=== PATIENT | female | born 1970 | race Caucasian/White ===

== ENCOUNTER 2016-10-25 21:50 | Inpatient (IN) | payer MEDICARE, MEDICAID ==
[~2016-10-25] VITALS: Ht 165.1 cm; Wt 100.5 kg
[~2016-10-25 21:50] MED LIST: ALBUAER3 INH; BACL20TA PO; CHLO200T5 PO; CLON0.3T PO; CYMB30CA PO; DULO1CAP3 PO; EXENINJ SQ; HYDR50TA94 PO; KLON2TAB PO; LITH450T PO; LURA80 PO; METF1000 PO; REQU4TAB3 PO
[2016-10-25 21:58] VITALS: BP 142/77; PULSE 101; RESP 14; TEMP 98.7; O2SAT 95
[2016-10-25] MEDS ORDERED: NALOXONE HCL 2 MG/2 ML VIAL IV ONE (22:15)
[2016-10-25] MEDS ORDERED: SODIUM CHLORIDE 0.9% FLUSH 10 ML FLUSH IVF PRN (22:15)
[2016-10-25 22:21] LABS: BLOOD GAS BASE EXCESS -3.1 mmol/L (-2-2); BLOOD GAS CARBOXYHEMOGLOBIN 5.5 % (0-4); BLOOD GAS HCO3 21 mmol/L (22-26); BLOOD GAS METHEMOGLOBIN 0.9 % (0-2); BLOOD GAS O2 HGB SATURATION 88 % (90-100); BLOOD GAS OXYGEN CONTENT 14.9 Vol % (12.0-20.0); BLOOD GAS PCO2 34 mmHg (38-42); BLOOD GAS PO2 66 mmHG (61-120); TEMP CORR TO 98.6
[2016-10-25 22:22] LABS: CRITICAL VALUE YES; DRAW SITE RT RADIAL; FIO2 21 %; NUMBER OF ARTERIAL PUNCTURES 2; OXYGEN DEVICE ROOM AIR; STAT YES; ULNAR PULSE PRESENT
[2016-10-25 22:29] VITALS: O2SAT 98
--- NOTE | 2016-10-25 22:50 | RADRPT ---
EXAM DATE/TIME: 10/25/2016 22:36 [facility] COMPARISON: CHEST SINGLE AP, January 01, 2015, 6:40. INDICATIONS : Cough. MEDICAL HISTORY : None. SURGICAL HISTORY : None. ENCOUNTER: Initial ACUITY: 1 day PAIN SCORE: Non-responsive. LOCATION: Bilateral chest FINDINGS: Heart size enlarged. Basilar density most characteristic of atelectasis. No significant effusion. No pneumothorax. CONCLUSION: 1. Cardiomegaly with probable basilar atelectasis. Berry Winston MD on October 25, 2016 at 22:47 Board Certified Radiologist. This report was verified electronically.
[2016-10-25 23:01] LABS: AUTOMATED NEUTROPHIL # 11.2 TH/MM3 (1.8-7.7); BASOPHIL # 0.1 TH/MM3 (0-0.2); BASOPHIL % 0.9 % (0.0-2.0); EOSINOPHIL # 0.2 TH/MM3 (0-0.4); EOSINOPHIL % 1.3 % (0.0-4.0); HEMATOCRIT 38.4 % (35.0-46.0); HEMO FLAGS DIFF FINAL; LYMPH % 8.8 % (9.0-44.0); LYMPHOCYTE # 1.2 TH/MM3 (1.0-4.8); MEAN CELL VOLUME 85.6 FL (80.0-100.0); MEAN CORPUSCULAR HEMOGLOBIN 28.1 PG (27.0-34.0); MEAN CORPUSCULAR HGB CONC 32.8 % (32.0-36.0); MONO % 6.2 % (0.0-8.0); NEUT % 82.8 % (16.0-70.0); PLATELET COUNT 255 TH/MM3 (150-450); RED BLOOD COUNT 4.48 MIL/MM3 (4.00-5.30); RED CELL DISTRIBUTION WIDTH 14.7 % (11.6-17.2); WHITE BLOOD COUNT 13.5 TH/MM3 (4.0-11.0)
[2016-10-25] MEDS ORDERED: LEVO25TA4 PO (23:14)
[2016-10-25] MEDS ORDERED: LEVO200T4 PO (23:14)
[2016-10-25 23:17] LABS: ACETAMINOPHEN LESS THAN 2.0 MCG/ML (10.0-30.0); ALT (GPT) 26 U/L (10-53); ANION GAP 7 MEQ/L (5-15); AST (GOT) 21 U/L (15-37); BICARBONATE 23.2 MEQ/L (21.0-32.0); BLOOD UREA NITROGEN 10 MG/DL (7-18); CHLORIDE 108 MEQ/L (98-107); GLOMERULAR FILTRATION RATE 61 ML/MIN (>89); SODIUM (NA) 138 MEQ/L (136-145)
[2016-10-25] MEDS ORDERED: UMEC1AER INH (23:21)
[2016-10-25 23:27] LABS: ALKALINE PHOSPHATASE 54 U/L (45-117); TOTAL BILIRUBIN ADULT 0.4 MG/DL (0.2-1.0)
--- NOTE | 2016-10-26 00:06 | RADRPT ---
EXAM DATE/TIME: 10/25/2016 23:56 [facility] COMPARISON: No previous studies available for comparison. INDICATIONS : Altered mental status. RADIATION DOSE: 41.36 CTDIvol (mGy) MEDICAL HISTORY : Gastroesophageal reflux disease. Diabetes mellitus type 2. Asthma. SURGICAL HISTORY : Lumbar surgery ENCOUNTER: Initial ACUITY: 1 day PAIN SCALE: Non-responsive LOCATION: cranial TECHNIQUE: Multiple contiguous axial images were obtained of the head. Using automated exposure control and adj ustment of the mA and/or kV according to patient size, radiation dose was kept as low as reasonably a chievable to obtain optimal diagnostic quality images. FINDINGS: CEREBRUM: The ventricles are normal for age. No evidence of midline shift, mass lesion, hemorrhage or acute in farction. No extra-axial fluid collections are seen. POSTERIOR FOSSA: The cerebellum and brainstem are intact. The 4th ventricle is midline. The cerebellopontine angle i s unremarkable. EXTRACRANIAL: The visualized portion of the orbits is intact. SKULL: The calvaria is intact. No evidence of skull fracture. CONCLUSION: No acute intracranial disease. Octaviano Andres MD on October 26, 2016 at 0:04 Board Certified Radiologist. This report was verified electronically.
[2016-10-26 00:47] LABS: AMPHETAMINE, URINE NEG (NEG); BARBITURATES, URINE NEG (NEG); COCAINE, URINE NEG (NEG)
[2016-10-26 00:53] LABS: BACTERIA, URINE MOD /hpf; BLOOD, URINE NEG (NEG); COMMENT (UR) CATH-CULTURE IND; CULTURE IF INDICATED CATH CULTURE IND; GLUCOSE,URINE NEG (NEG); HYALINE CAST, URINE 1 /lpf (RARE); KETONE, URINE NEG (NEG); NITRITE,URINE POS (NEG); PH, URINE 5.5 (5.0-8.5); RENAL EPITHELIAL CELLS <1 /hpf; SQUAMOUS EPITHELIAL CELL URINE 1 /hpf (0-5); URINE COLOR YELLOW (YELLW/STRAW)
--- NOTE | 2016-10-26 01:27 | PD ---
HPI Chief Complaint: Altered Mental Status Time Seen by Provider: 21:56 Travel History International Travel<30 days: No Contact w/Intl Traveler<30days: No Traveled to known affect area: No History of Present Illness HPI 46-year-old female arrives from home by EMS. Evidently the patient's son called EMS because she was not acting right. The police department came and the patient seemed to be discussing some possibility of self-harm. She reports the headache and having gone to bed somewhat earlier tonight. In the ER the patient doesn't answer questions. History is obtained by EMS. PFSH Past Medical History Asthma: Yes Bipolar Disorder: Yes Anxiety: Yes Depression: Yes Cancer: No Cardiovascular Problems: No Diabetes: Yes Patient Takes Glucophage: Yes Diminished Hearing: No Gastrointestinal Disorders: Yes GERD: Yes Genitourinary: No Herniated Disk: Yes Implanted Vascular Access Dvce: No Insomnia: Yes Musculoskeletal: Yes Neurologic: No Psychiatric: Yes (OBSESSIVE COMPULSIVE,RLS,SCHIZOPRENIC, PARANOIA) Reproductive: No Respiratory: Yes Schizophrenia: Yes Triglycerides - High: Yes Tetanus Vaccination: > 5 Years Influenza Vaccination: No ?: Unknown : 2 Para: 2 Social History Alcohol Use: No Tobacco Use: Yes (/ PPD) Substance Use: Yes ("TRIED WEED 2 WEEKS AGO TO HELP ME SLEEP" STATED 01/01/15) Allergies-Medications (Allergen,Severity, Reaction): Coded Allergies: No Known Allergies (Verified , 08/27/16) Reported Meds & Prescriptions Reported Meds & Active Scripts Active Baclofen 20 Mg Tab 20 Mg PO QID Duloxetine DR (Duloxetine HCl) 60 Mg Capdr 60 Mg PO DAILY Requip (Ropinirole) 4 Mg Tab 4 Mg PO HS Cymbalta DR (Duloxetine HCl) 30 Mg Capdr 30 Mg PO DAILY Clonidine (Clonidine HCl) 0.3 Mg Tab 0.3 Mg PO QHS & Q4AM Latuda (Lurasidone) 80 Mg Tab 80 Mg PO BID [place] Carbonate ER ([place] Carbonate) 450 Mg Tab 450 Mg PO BID Klonopin (Clonazepam) 2 Mg Tab 2 Mg PO QID Chlorpromazine (Chlorpromazine HCl) 200 Mg Tab 200 Mg PO QID PRN Reported Anoro Ellipta Inh (Umeclidinium/Vilanterol) 62.5-25 Mcg/Act Aero 1 Puff INH DAILY Levothyroxine (Levothyroxine Sodium) 200 Mcg Tab 200 Mcg PO DAILY Levothyroxine (Levothyroxine Sodium) 25 Mcg Tab 25 Mcg PO DAILY Metformin (Metformin HCl) 1,000 Mg Tab 1,000 Mg PO BIDPC With meals Bydureon Inj (Exenatide) 2 Mg Vial 2 Mg SQ Q7D Hydroxyzine HCl 50 Mg Tab 50 Mg PO TID Proair Hfa 8.5 GM Inh (Albuterol Sulfate) 90 Mcg/Act Aer 2 Puff INH Q4HR PRN 108 mcg/actuation Review of Systems ROS Limitations: Altered Mental Status General / Constitutional: No: Fever Physical Exam Narrative GENERAL: 46-year-old female well-nourished well-developed, does not answer questions withdraws from pain, does not open eyes SKIN: Focused skin assessment warm/dry. HEAD: Atraumatic. Normocephalic. EYES: Pupils equal and round. No scleral icterus. No injection or drainage. ENT: No nasal bleeding or discharge. Mucous membranes pink and moist. NECK: Trachea midline. No JVD. CARDIOVASCULAR: Regular rate and rhythm. No murmur appreciated. RESPIRATORY: No accessory muscle use. Clear to auscultation. Breath sounds equal bilaterally. GASTROINTESTINAL: Abdomen soft, non-tender, nondistended. Hepatic and splenic margins not palpable. MUSCULOSKELETAL: No obvious deformities. No clubbing. No cyanosis. No edema. NEUROLOGICAL: Patient does not answer questions. She does not open her eyes. There is no facial asymmetry or focal motor weakness. PSYCHIATRIC: Indeterminate. Unable to assess. Data Data Last Documented VS Vital Signs Date Time Temp Pulse Resp B/P Pulse Ox O2 Delivery O2 Flow Rate FiO2 10/25/16 22:29 98 Nasal Cannula 3.00 10/25/16 21:58 98.7 101 14 142/77 Orders Ammonia (10/25/16 22:02) Complete Blood Count With Diff (10/25/16 22:02) Comprehensive Metabolic Panel (10/25/16 22:02) Thyroid Stimulating Hormone (10/25/16 22:02) Lactic Acid Sepsis Protocol (10/25/16 22:02) Urinalysis - C+S If Indicated (10/25/16 22:02) Arterial Blood Gas (Abg) (10/25/16 22:02) Chest, Single Ap (10/25/16 22:02) Ct Brain W/O Iv Contrast(Rout) (10/25/16 22:02) Blood Glucose (10/25/16 22:02) Ecg Monitoring (10/25/16 22:02) Iv Access Insert/Monitor (10/25/16 22:02) Cath For Specimen (10/25/16 22:02) Oximetry (10/25/16 22:02) Naloxone Inj (Narcan Inj) (10/25/16 22:15) Sodium Chloride 0.9% Flush (Ns Flush) (10/25/16 22:15) Drug Screen, Random Urine (10/25/16 22:02) Alcohol (Ethanol) (10/25/16 22:02) Salicylates (Aspirin) (10/25/16 22:02) Tylenol (Acetaminophen) (10/25/16 22:02) [place] (Li) (10/25/16 22:02) Urine Culture (10/26/16 00:10) Ceftriaxone Inj (Rocephin Inj) (10/26/16 01:30) Admit Order (Ed Use Only) (10/26/16 01:51) Consult Psychiatry (10/26/16 ) Labs Laboratory Tests Test 10/25/16 10/25/16 10/25/16 10/26/16 22:13 22:45 22:49 00:10 Blood Gas Puncture Site RT RADIAL Blood Gas Patient Temperature 98.6 Blood Gas HCO3 21 mmol/L Blood Gas Base Excess -3.1 mmol/L Blood Gas Oxygen Saturation 88 % Arterial Blood pH 7.40 Arterial Blood Partial 34 mmHg Pressure CO2 Arterial Blood Partial 66 mmHG Pressure O2 Arterial Blood Oxygen Content 14.9 Vol % Arterial Blood 5.5 % Carboxyhemoglobin Arterial Blood Methemoglobin 0.9 % Blood Gas Hemoglobin 12.0 G/DL Oxygen Delivery Device ROOM AIR Blood Gas Inspired Oxygen 21 % Sodium Level 138 MEQ/L Potassium Level 4.0 MEQ/L Chloride Level 108 MEQ/L Carbon Dioxide Level 23.2 MEQ/L Anion Gap 7 MEQ/L Blood Urea Nitrogen 10 MG/DL Creatinine 0.98 MG/DL Estimat Glomerular Filtration 61 ML/MIN Rate Random Glucose 137 MG/DL Calcium Level 8.6 MG/DL Total Bilirubin 0.4 MG/DL Aspartate Amino Transf 21 U/L (AST/SGOT) Alanine Aminotransferase 26 U/L (ALT/SGPT) Alkaline Phosphatase 54 U/L Ammonia 26 MCMOL/L Total Protein 6.6 GM/DL Albumin 3.4 GM/DL Thyroid Stimulating Hormone 2.880 uIU/ML 3rd Gen Salicylates Level 4.3 MG/DL Acetaminophen Level LESS THAN 2.0 MCG/ML [place] Level 1.4 MEQ/L Ethyl Alcohol Level LESS THAN 3 MG/DL White Blood Count 13.5 TH/MM3 Red Blood Count 4.48 MIL/MM3 Hemoglobin 12.6 GM/DL Hematocrit 38.4 % Mean Corpuscular Volume 85.6 FL Mean Corpuscular Hemoglobin 28.1 PG Mean Corpuscular Hemoglobin 32.8 % Concent Red Cell Distribution Width 14.7 % Platelet Count 255 TH/MM3 Mean Platelet Volume 8.5 FL Neutrophils (%) (Auto) 82.8 % Lymphocytes (%) (Auto) 8.8 % Monocytes (%) (Auto) 6.2 % Eosinophils (%) (Auto) 1.3 % Basophils (%) (Auto) 0.9 % Neutrophils # (Auto) 11.2 TH/MM3 Lymphocytes # (Auto) 1.2 TH/MM3 Monocytes # (Auto) 0.8 TH/MM3 Eosinophils # (Auto) 0.2 TH/MM3 Basophils # (Auto) 0.1 TH/MM3 CBC Comment DIFF FINAL Differential Comment Lactic Acid Level 1.2 mmol/L Urine Color YELLOW Urine Turbidity HAZY Urine pH 5.5 Urine Specific [place] 1.010 Urine Protein NEG mg/dL Urine Glucose (UA) NEG mg/dL Urine Ketones NEG mg/dL Urine Occult Blood NEG Urine Nitrite POS Urine Bilirubin NEG Urine Urobilinogen LESS THAN 2.0 MG/DL Urine Leukocyte Esterase LARGE Urine RBC 2 /hpf Urine WBC 28 /hpf Urine Squamous Epithelial 1 /hpf Cells Urine Renal Epithelial Cells <1 /hpf Urine Bacteria MOD /hpf Urine Hyaline Casts 1 /lpf Microscopic Urinalysis Comment CATH-CULTURE IND Urine Opiates Screen NEG Urine Barbiturates Screen NEG Urine Amphetamines Screen NEG Urine Benzodiazepines Screen NEG Urine Cocaine Screen NEG Urine Cannabinoids Screen NEG MDM Medical Decision Making Medical Screen Exam Complete: Yes Emergency Medical Condition: Yes Medical Record Reviewed: Yes Differential Diagnosis Altered mental status Narrative Course CBC & BMP Diagram 10/25/16 22:45 LA 1.2 AMmonia 26 TSH 2.88 Li 1.4 LFTs normal ABG 7.40 / 34 / 21 BE -3.1 [id number] Last [address] 10/25/162201 Signed Impressions: Service Date/Time: Tuesday, October 25, 2016 23:56 - CONCLUSION: No acute intracranial disease. Octaviano Andres MD Chest X-Ray 10/25/162201 Signed Impressions: Service Date/Time: Tuesday, October 25, 2016 22:36 - CONCLUSION: 1. Cardiomegaly with probable basilar atelectasis. Berry Winston MD UA: UTI present Rocephin given. Admission for AMS and UTI. Psych consult may be appropriate. d/ w Dr Sorto. Diagnosis Primary Impression: UTI (urinary tract infection) Qualified Code: N39.0 - Urinary tract infection without hematuria, site unspecified Additional Impression: Altered mental status Qualified Code: R41.82 - Altered mental status, unspecified altered mental status type Admitting Information Admitting Physician Requests: Admit Dwight Arthur MD Oct 26, 2016 01:27
[2016-10-26] MEDS ORDERED: cefTRIAXone INJ 1,000 MG in SODIUM CHLORIDE 0.9% INJ 100 ML IV ONE (01:30)
[2016-10-26 02:23] VITALS: BP 135/73; PULSE 70; RESP 18; O2SAT 95
[2016-10-26] MEDS ORDERED: BISACODYL 10 MG SUPP PR PRN (02:30)
[2016-10-26] MEDS ORDERED: ACETAMINOPHEN 325 MG TAB PO PRN (02:30)
[2016-10-26] MEDS ORDERED: ONDANSETRON HCL 4 MG/2 ML VIAL IVP PRN (02:30)
[2016-10-26] MEDS ORDERED: SODIUM CHLORIDE 0.9% FLUSH 10 ML FLUSH IV FLUSH PRN (02:30)
[2016-10-26] MEDS ORDERED: DEXTROSE 50% IN WATER 50 ML VIAL(D50) IV PUSH PRN (04:15)
[2016-10-26] MEDS ORDERED: GLUCAGON 1 MG/ML VIAL OTHER PRN (04:15)
--- NOTE | 2016-10-26 04:16 | HHI.HP ---
HPI Service [facility] Primary Care Physician Unknown Admission Diagnosis UTI, AMS Diagnoses: (1) Encephalopathy Diagnosis: Principal (2) UTI (urinary tract infection) Diagnosis: Principal (3) Bipolar disorder, current episode mixed Diagnosis: Principal (4) DM (diabetes mellitus) Diagnosis: Principal Travel History International Travel<30 Days: No Contact w/Intl Traveler <30 Da: No Traveled to Known Affected Are: No History of Present Illness This is a 46-year-old female with a PMH of Anxiety, Depression, Bipolar Disorder , Schizophrenia and DM who was brought to the ER by EMS after son called 911. Per report, pt noted by son to be confused, not acting right, questionable suicidal ideation, however pt non-verbal and providing no history. Per review of records, pt w/ Bipolar/Schizophrenia, paranoia w/ blunted affect, slow processing. On arrival, BP 142/77, HR 101, O2 sat 95% on RA, Afebrile. WBC 13.5. GFR 61. Lactic Acid 1.2. LFTs normal. Ammonia 26. Urine Drug Screen negative. Alcohol negative. Tylenol/Salicylate negative. UA positive for UTI. CXR with cardiomegaly and probable basilar atelectasis. CT Head with no acute findings. S/p Rocephin IV in ER. Review of Systems Except as stated in HPI: all other systems reviewed are Neg ROS: Unable to obtain secondary to nonverbal status. Past Family Social History Past Medical History PMH: Anxiety, Depression, Bipolar Disorder, Schizophrenia and DM Past Surgical History PAST SURGICAL HISTORY: Back Surgery Allergies: Coded Allergies: No Known Allergies (Verified , 08/27/16) Family History PAST FAMILY HISTORY: Reviewed. No h/o DM or CAD Social History PAST SOCIAL HISTORY: Per review of records, negative for alcohol, positive for tobacco, history of Marijuana Physical Exam Vital Signs Vital Signs Date Time Temp Pulse Resp B/P Pulse Ox O2 Delivery O2 Flow Rate FiO2 10/26/16 02:23 70 18 135/73 95 Nasal Cannula 2 10/25/16 22:29 98 Nasal Cannula 3.00 10/25/16 21:58 98.7 101 14 142/77 95 10/25/16 21:55 14 97 Room Air Physical Exam PE: GENERAL: Middle-aged white female in no acute distress, nonverbal, flat affect HEENT: PERRLA, EOMI. No scleral icterus or conjunctival pallor. No lid lag or facial droop. CARDIOVASCULAR: Regular rate and rhythm. No obvious murmurs to auscultation. No chest tenderness to palpation. RESPIRATORY: No obvious rhonchi or wheezing. Clear to auscultation. Breath sounds equal bilaterally. GASTROINTESTINAL: Abdomen soft, non-tender, nondistended. BS normal. MUSCULOSKELETAL: Extremities without clubbing, cyanosis, or edema. No obvious deformities. NEUROLOGICAL: Nonverbal, non-communicative. No focal neurologic deficits. Moving both upper and lower extremities spontaneously. Laboratory Laboratory Tests Test 10/25/16 10/25/16 10/25/16 10/26/16 22:13 22:45 22:49 00:10 Blood Gas Puncture Site RT RADIAL Blood Gas Patient Temperature 98.6 Blood Gas HCO3 21 Blood Gas Base Excess -3.1 Blood Gas Oxygen Saturation 88 Arterial Blood pH 7.40 Arterial Blood Partial 34 Pressure CO2 Arterial Blood Partial 66 Pressure O2 Arterial Blood Oxygen Content 14.9 Arterial Blood 5.5 Carboxyhemoglobin Arterial Blood Methemoglobin 0.9 Blood Gas Hemoglobin 12.0 Oxygen Delivery Device ROOM AIR Blood Gas Inspired Oxygen 21 Sodium Level 138 Potassium Level 4.0 Chloride Level 108 Carbon Dioxide Level 23.2 Anion Gap 7 Blood Urea Nitrogen 10 Creatinine 0.98 Estimat Glomerular Filtration 61 Rate Random Glucose 137 Calcium Level 8.6 Total Bilirubin 0.4 Aspartate Amino Transf 21 (AST/SGOT) Alanine Aminotransferase 26 (ALT/SGPT) Alkaline Phosphatase 54 Ammonia 26 Total Protein 6.6 Albumin 3.4 Thyroid Stimulating Hormone 2.880 3rd Gen Salicylates Level 4.3 Acetaminophen Level LESS THAN 2.0 [place] Level 1.4 Ethyl Alcohol Level LESS THAN 3 White Blood Count 13.5 Red Blood Count 4.48 Hemoglobin 12.6 Hematocrit 38.4 Mean Corpuscular Volume 85.6 Mean Corpuscular Hemoglobin 28.1 Mean Corpuscular Hemoglobin 32.8 Concent Red Cell Distribution Width 14.7 Platelet Count 255 Mean Platelet Volume 8.5 Neutrophils (%) (Auto) 82.8 Lymphocytes (%) (Auto) 8.8 Monocytes (%) (Auto) 6.2 Eosinophils (%) (Auto) 1.3 Basophils (%) (Auto) 0.9 Neutrophils # (Auto) 11.2 Lymphocytes # (Auto) 1.2 Monocytes # (Auto) 0.8 Eosinophils # (Auto) 0.2 Basophils # (Auto) 0.1 CBC Comment DIFF FINAL Differential Comment Lactic Acid Level 1.2 Urine Color YELLOW Urine Turbidity HAZY Urine pH 5.5 Urine Specific [place] 1.010 Urine Protein NEG Urine Glucose (UA) NEG Urine Ketones NEG Urine Occult Blood NEG Urine Nitrite POS Urine Bilirubin NEG Urine Urobilinogen LESS THAN 2.0 Urine Leukocyte Esterase LARGE Urine RBC 2 Urine WBC 28 Urine Squamous Epithelial 1 Cells Urine Renal Epithelial Cells <1 Urine Bacteria MOD Urine Hyaline Casts 1 Microscopic Urinalysis Comment CATH-CULTURE IND Urine Opiates Screen NEG Urine Barbiturates Screen NEG Urine Amphetamines Screen NEG Urine Benzodiazepines Screen NEG Urine Cocaine Screen NEG Urine Cannabinoids Screen NEG Date/Time Procedure Status Source Growth 10/26/16 00:10 Urine Culture Received Urine Catheterized Urine Pending Result Diagram: 10/25/16224410/25/[id number] Assessment and Plan Problem List: (1) Encephalopathy ICD Code: G93.40 Status: Acute (2) UTI (urinary tract infection) ICD Code: N39.0 Status: Acute (3) Bipolar disorder, current episode mixed ICD Code: F31.60 Status: Acute (4) DM (diabetes mellitus) ICD Code: E11.9 Status: Acute Assessment and Plan A/P: 1. Encephalopathy: Likely multifactorial-underlying Psych disorder and acute UTI. CT Head w/ no acute findings, images reviewed by me. Labs essentially unremarkable except for mild leukocytosis. Baseline largely unknown. 2. UTI: U/a w/ UTI. S/p Rocephin in ER. Continue w/ IV Abx, IVF for hydration. 3. Bipolar Disorder: Bipolar/Schizophrenia may be contributing to encephalopathy, will consult Psych for further evaluation. 4. DM: Sliding scale w/ Accu-Cheks, hold Metformin for now until taking adequate PO. 5. DVT Prophylaxis: SCD/Teds. 6. Social work for d/c planning as needed. 7. Case discussed w/ ER physician at length. Ashley Sorto MD Oct 26, 2016 04:16
[2016-10-26] MEDS: SODIUM CHLOR 0.9% 1000 ML INJ 1,000 ML IV SCH ×3 (05:41→22:18)
[2016-10-26 05:44] VITALS: BP 138/77; PULSE 72; RESP 14; O2SAT 100
[2016-10-26] MEDS: INSULIN ASPART SUPPLEMENTAL SCALE SQ SCH ×4 (07:00→21:00)
[2016-10-26 07:41] VITALS: BP 132/76; PULSE 98; RESP 16; O2SAT 97
[2016-10-26 08:26] VITALS: BP 150/97; PULSE 96; RESP 20; TEMP 98.4; O2SAT 96
[2016-10-26] MEDS: SODIUM CHLORIDE 0.9% FLUSH 10 ML FLUSH IV FLUSH SCH ×2 (09:00→21:00)
[2016-10-26] MEDS ORDERED: HALOPERIDOL LACTATE 5 MG/ML AMP IM ONE ×2 (09:30→10:30)
--- NOTE | 2016-10-26 10:49 | HHI.PR ---
Subjective Remarks Follow up for acute encephalopathy, delirium, UTI. The patient is seen in restraints, very agitated, yelling out from her room, not making much sense or following commands. The patient is not cooperative answering questions. RN reports the patient broke out of leg restraints and kicked the bed, sustained injury to right great toe. Objective Vitals Vital Signs Date Time Temp Pulse Resp B/P Pulse Ox O2 Delivery O2 Flow Rate FiO2 10/26/16 08:26 98.4 96 20 150/97 96 10/26/16 07:41 98 16 132/76 97 Nasal Cannula 2 10/26/16 05:44 72 14 138/77 100 Nasal Cannula 2 10/26/16 02:23 70 18 135/73 95 Nasal Cannula 2 10/25/16 22:29 98 Nasal Cannula 3.00 10/25/16 21:58 98.7 101 14 142/77 95 10/25/16 21:55 14 97 Room Air Result Diagram: 10/25/16224410/25/[id number] Imaging Last Impressions Head CT 10/25/162201 Signed Impressions: Service Date/Time: Tuesday, October 25, 2016 23:56 - CONCLUSION: No acute intracranial disease. Octaviano Andres MD Chest X-Ray 10/25/162201 Signed Impressions: Service Date/Time: Tuesday, October 25, 2016 22:36 - CONCLUSION: 1. Cardiomegaly with probable basilar atelectasis. Berry Winston MD Objective Remarks GENERAL: Well-nourished, well-developed middle aged female patient in [facility]. SKIN: Warm and dry. No rash. HEENT: Normocephalic. Atraumatic. Pupils equal and round. No scleral icterus. No injection or drainage. Mucous membranes pink and moist. NECK: Supple. Trachea midline. CARDIOVASCULAR: Regular rate and rhythm. S1, S2 noted. No murmur appreciated. RESPIRATORY: No accessory muscle use. Clear to auscultation. Breath sounds equal bilaterally. GASTROINTESTINAL: Abdomen soft, non-tender, nondistended. Normoactive bowel sounds x4. MUSCULOSKELETAL: No obvious deformities. Extremities without clubbing, cyanosis , or edema. Right great toenail partially removed, bleeding. NEUROLOGICAL: Awake and alert. No obvious cranial nerve deficits. Motor grossly within normal limits. Moving all extremities spontaneously. Normal speech. PSYCHIATRIC: Agitated mood; insight and judgment limited. Medications and IVs Current Medications Medications (Trade) Dose Ordered Sig/Jason Route Start Time Stop Time Status Last Admin Ceftriaxone Sodium 1000 mg/ Sodium Chloride 100 ml @ 200 mls/hr Q24H IV 10/26/16 23:00 (NS 1000 ml Inj) 1,000 ml @ 100 mls/hr Q10H IV 10/26/16 02:18 10/26/16 05:41 (NS Flush) 2 ml UNSCH PRN IV FLUSH 10/26/16 02:30 (NS Flush) 2 ml BID IV FLUSH 10/26/16 09:00 (Zofran Inj) 4 mg Q6H PRN IVP 10/26/16 02:30 (Dulcolax Supp) 10 mg DAILY PRN WA 10/26/16 02:30 (Tylenol) 650 mg Q6H PRN PO 10/26/16 02:30 (D50w (Vial) Inj) 25 ml UNSCH PRN IV PUSH 10/26/16 04:15 (Glucagon Inj) 1 mg UNSCH PRN OTHER 10/26/16 04:15 (Haldol Inj) 2 mg ONCE ONCE IM 10/26/16 10:30 10/26/16 10:31 UNV (Haldol Inj) 5 mg Q6H PRN IM 10/26/16 14:00 UNV Urinary Catheter: No Vascular Central Line Catheter: No A/P Problem List: (1) Encephalopathy ICD Code: G93.40 Status: Acute (2) UTI (urinary tract infection) ICD Code: N39.0 Status: Acute (3) Bipolar disorder, current episode mixed ICD Code: F31.60 Status: Acute (4) DM (diabetes mellitus) ICD Code: E11.9 Status: Acute Assessment and Plan 46-year-old female with a PMH of Anxiety, Depression, Bipolar Disorder, Schizophrenia and DM who was brought to the ER by EMS after son called 911. Per report, pt noted by son to be confused, not acting right, questionable suicidal ideation Acute Encephalopathy/Delirium: Likely multifactorial-underlying Psych disorder and acute UTI. Suspect polypharmacy/anticholinergic delirium. CT Head w/ no acute findings, images reviewed by me. Labs essentially unremarkable except for mild leukocytosis. Baseline largely unknown. Consulted psychiatry, recommends admission to med/psych unit, orders placed. Patient very agitated, not following commands, disruptive with care. Haldol prn agitation. Restraints as needed. Patient was noted very agitated. Dr You will reevaluate patient. Currently patient in lether vest as she did rip away cata and soft restraints. Discussed with Dr You. Patient might need to go to ICU for intubation / sedation if doesn't improve. UTI: U/a w/ UTI. S/p Rocephin in ER. Continue w/ IV Abx, IVF for hydration. Monitor urine culture. Bipolar Disorder: Bipolar/Schizophrenia on multiple psychiatric medications as outpatient - Latuda, lithium, Klonopin, Cymbalta, hydroxyzine. Psychiatry consulted, recommends holding all psychiatric meds. DM: Sliding scale w/ Accu-Cheks, hold Metformin for now until taking adequate PO. Right Great Toe Trauma: patient broke loose from leg restraint and kicked bed rail, traumatic removal right great toenail. Consult podiatry. Check toe xrays. DVT Prophylaxis: SCD/Teds. Discussed with the patient, nurse, Dr You from psych Medically she can be discharged to inpatient psych or for transfer to ICU for sedation, to continue abx for UTI. Also patient ripped her nail on her L 1st toe, podiatry consulted can follow. Written by Quiana Leahy, acting as scribe for Dr. Millard on 10/26/16 at 10:48. All or portions of this note were transcribed by scribe Quiana CARRINGTON I, Dr. Earnestine Millard personally performed the history, physical exam, and medical decision making; and confirmed the accuracy of the information in the transcribed note. Authenticated by Dr. Earnestine Millard on 10/26/16 at 10:48. Discharge Planning Discharge patient to med/psych unit Condition on discharge: Fair Diabetic Diet as tolerated Ad Traci activity Rx written: needs to continue abx upon arrival to med/psych Follow-up with primary care physician within 1 week Problem Qualifiers (1) UTI (urinary tract infection): Qualified Code: N39.0 - Urinary tract infection without hematuria, site unspecified Quiana Leahy PA-C Oct 26, 2016 10:49 Earnestine Millard MD Oct 26, 2016 14:39
--- NOTE | 2016-10-26 10:56 | PD.CONS ---
Provisional Diagnosis Admission Date Oct 26, 2016 at 01:53 [place] I. Schizophrenia, CHRISTIAN, MDD [place] II. Deferred [place] III. Diabetes mellitus, lower back pain, UTI [place] IV. Long history of psychiatric illnesses, she has a son with autism [place] V. 40 History of Present Illness Service Psychiatry Consult Requested By Primary Care Physician Unknown HPI The patient is a 46-year-old woman, domiciled with her 11 years old autistic son in [place], unemployed, on SSI, , with psychiatric history of schizophrenia, bipolar disorder anxiety, depression, numerous psychiatric hospitalizations, last hospitalization here in [place] in 2014, documentation was reviewed, previous suicidal attempts, she has active outpatient care with Dr. Mackenzie, she is on Latuda 80 mg twice a day, lithium 450 minute 1 twice a day, Klonopin 2 mg 4 times per day, Cymbalta 90 mg daily, hydroxyzine 50 medical as twice a day, she has medical history of DM who was brought to the ER by EMS after son called 911 due to altered mental status. Per report, pt noted by son to be confused, not acting right, questionable suicidal ideation, however pt non-verbal and providing no history. On arrival, BP 142/77, HR 101, O2 sat 95% on RA, Afebrile. WBC 13.5. GFR 61. Lactic Acid 1.2. LFTs normal. Ammonia 26. Urine Drug Screen negative. Alcohol negative. Tylenol/Salicylate negative. UA positive for UTI. CXR with cardiomegaly and probable basilar atelectasis. CT Head with no acute findings. S/p Rocephin IV in ER, patient had also urinary retention, she was drained over 1000 cc of urine from her bladder. On psychiatric evaluation patient is agitated, very disorganized, no making any sense, unable to provide any meaningful information for the psychiatric assessment at this moment. She is a screaming, requesting medical care, and saying that she feels better, that she feels pain, but unable to give a concrete symptomatology. Patient is disoriented, she doesn't know what he is, she doesn't know the date. As she is been trying to be evaluated, patient is agitated, trying to get out of bed, at times screaming, calling her mother. She was asked about suicidal ideation, or a previous suicidal attempt, but the patient denies. I got collateral information from her mother Bernadine Pisanelle, , was playing is that her daughter has been disorganized , acting very bizarre, talking to herself, wandering around, yesterday she became very concerned with her daughter in several occasions was trying to light a cigarette without a cigarette in her mouth and could not answer any of her questions clearly. Her mother also says that the only thing had call her attention in the last week is that the patient has been complaining of back pain and most probably has been abusing baclofen, also the patient has been kind oversedated and fatigue. But other than that patient has been at baseline until yesterday, without any notable symptomatology of depression, savanah or psychosis, she has been fully compliant with her medications, she has been going to her psychiatrist along with her son in [place]. Review of Systems Constitutional: DENIES: Diaphoretic episodes, Fatigue, Fever, Weight gain, Weight loss, Chills, Dizziness, Change in appetite, Night Sweats Endocrine: DENIES: Abnorml menstrual pattern, Heat/cold intolerance, Polydipsia , Polyuria, Polyphagia Eyes: DENIES: Blurred vision, Diplopia, Eye inflammation, Eye pain, Vision loss , Photosensitivity, Double Vision Ears, nose, mouth, throat: DENIES: Tinnitus, Hearing loss, Vertigo, Nasal discharge, Oral lesions, Throat pain, Hoarseness, Ear Pain, Running Nose, Epistaxis, Sinus Pain, Toothache, Odynophagia Respiratory: DENIES: Apneas, Cough, Snoring, Wheezing, Hemoptysis, Sputum production, Shortness of breath Cardiovascular: DENIES: Chest pain, Palpitations, Syncope, Dyspnea on Exertion , PND, Lower Extremity Edema, Orthopnea, Claudication Gastrointestinal: DENIES: Abdominal pain, Black stools, Bloody stools, Constipation, Diarrhea, Nausea, Vomiting, Difficulty Swallowing, Anorexia Genitourinary: COMPLAINS OF: Urinary incontinence, DENIES: Abnormal vaginal bleeding, Dysmenorrhea, Dyspareunia, Sexual dysfunction, Urinary frequency, Urgency, Hematuria, Dysuria, Nocturia, Vaginal discharge Musculoskeletal: COMPLAINS OF: Back pain Integumentary: DENIES: Abnormal pigmentation, Pruritus, Rash, Nail changes, Breast masses, Breast skin changes, Nipple discharge Hematologic/lymphatic: DENIES: Bruising, Lymphadenopathy Immunologic/allergic: DENIES: Eczema, Urticaria Neurologic: DENIES: Abnormal gait, Headache, Localized weakness, Paresthesias, Seizures, Speech Problems, Tremor, Poor Balance Psychiatric: COMPLAINS OF: Anxiety, Mood changes, Hallucinations Past Family Social History Coded Allergies: No Known Allergies (Verified , 08/27/16) Active Scripts Baclofen 20 Mg Tab20 Mg PO QID #120 TAB Ref 2 Prov:Lea Mckinney MD 08/27/[address] 60 Mg Capdr60 Mg PO DAILY #30 CAP Ref 2 Prov:Lea Mckinney MD 08/27/16 Ropinirole (Requip)4 Mg Tab4 Mg PO HS #30 TAB Ref 2 Prov:Lea Mckinney MD 08/27/[address] (Cymbalta DR)30 Mg Capdr30 Mg PO DAILY #30 CAP Ref 2 Prov:Lea Mckinney MD 08/27/16 Clonidine 0.3 Mg Tab0.3 Mg PO QHS & Q4am #60 TAB Ref 2 Prov:Lea Mckinney MD 08/27/16 Lurasidone (Latuda)80 Mg Tab80 Mg PO BID #60 TAB Ref 2 Prov:Lea Mckinney MD 08/27/16 [place] Carbonate ER 450 Mg Jvn116 Mg PO BID #60 TAB Ref 2 Prov:Lea Mckinney MD 08/27/16 Clonazepam (Klonopin)2 Mg Tab2 Mg PO QID #120 TAB Ref 2 Prov:Lea Mckinney MD 08/27/16 Chlorpromazine 200 Mg [id number] Mg PO QID PRN (NAUSEA OR VOMITING) #120 TAB Ref 1 Prov:Kaden Mackenzie MD 06/15/16 Reported Medications Umeclidinium-Vilanterol Inh (Anoro Ellipta Inh)62.5-25 Mcg/Act Aero1 Puff INH DAILY #1 INHALER Ref 0 10/25/16 Levothyroxine 200 Mcg [id number] Mcg PO DAILY #30 TAB Ref 0 10/25/16 Levothyroxine 25 Mcg Tab25 Mcg PO DAILY #30 TAB Ref 0 10/25/16 Metformin 1,000 Mg Tab1,000 Mg PO BIDPC #60 TAB Ref 0 With meals 06/04/16 Exenatide Inj (Bydureon Inj)2 Mg Vial2 Mg SQ Q7D #4 INJECTION Ref 0 06/04/16 Hydroxyzine HCl 50 Mg Tab50 Mg PO TID #90 TAB Ref 0 06/04/16 Albuterol 8.5 GM Inh (Proair Hfa 8.5 GM Inh)90 Mcg/Act Aer2 Puff INH Q4HR PRN ( SHORTNESS OF BREATH) #1 INHALER Ref 0 108 mcg/actuation 06/04/16 Current Medications Medications (Trade) Dose Ordered Sig/Jason Route Start Time Stop Time Status Last Admin Ceftriaxone Sodium 1000 mg/ Sodium Chloride 100 ml @ 200 mls/hr Q24H IV 10/26/16 23:00 (NS 1000 ml Inj) 1,000 ml @ 100 mls/hr Q10H IV 10/26/16 02:18 10/26/16 05:41 (NS Flush) 2 ml UNSCH PRN IV FLUSH 10/26/16 02:30 (NS Flush) 2 ml BID IV FLUSH 10/26/16 09:00 (Zofran Inj) 4 mg Q6H PRN IVP 10/26/16 02:30 (Dulcolax Supp) 10 mg DAILY PRN RI 10/26/16 02:30 (Tylenol) 650 mg Q6H PRN PO 10/26/16 02:30 (D50w (Vial) Inj) 25 ml UNSCH PRN IV PUSH 10/26/16 04:15 (Glucagon Inj) 1 mg UNSCH PRN OTHER 10/26/16 04:15 (Haldol Inj) 2 mg ONCE ONCE IM 10/26/16 10:30 10/26/16 10:31 UNV (Haldol Inj) 5 mg Q6H PRN IM 10/26/16 14:00 UNV Family History Her son is autistic Social History Patient was born and raised in [place], she has been living in [place] for 10 years, she is , she lives with her 11 years old son in [place], she is unemployed, supported by [employer], her main emotional and social support is her mother, her highest level of education is high school Physical Exam Patient agitated, hyperactive, Vital Signs Vital Signs Date Time Temp Pulse Resp B/P Pulse Ox O2 Delivery O2 Flow Rate FiO2 10/26/16 08:26 98.4 96 20 150/97 96 10/26/16 07:41 Nasal Cannula 2 Lab Results Hgb 12.6, HCT 30.4, NA 138, K 40, creatinine 0.98, bun 10, TSH 2.8, AST 26, AST 21, positive UTI, lithium level is 1.4 Mental Status Examination Patient is agitated, uncooperative with the evaluation, very disorganized Appearance woman, overweight, poor hygiene, hospital [facility], agitated, non- cooperative Speech: Hesitant, Slow, Incoherent Orientation: Person, Place (disoriented), Time (disoriented), Date (disoriented ) Thought Process: Loose Association, Tangential, Other (disorganized) Thought Content: Bizarre thinking Hallucination Type: None Attention and Concentration: Abnormal Suicidal Ideation: No Previous Suicide Attempts: No Homicidal Ideation: No Previous Homicide Attempts: No Judgement: Impulsive Affect: Irritable Affect if Inappropriate: Labile Mood: Irritable Motor Activity: Normal gait Assessment & Plan Problem List: (1) Bipolar disorder, current episode mixed ICD Code: F31.60 (2) Bipolar disorder ICD Code: F31.9 (3) Delirium due to another medical condition Assessment & Plan: The patient is a 46-year-old woman, domiciled with her 11 year-old autistic son in [place], unemployed, on SSI, , with psychiatric history of schizophrenia, bipolar disorder anxiety, depression , numerous psychiatric hospitalizations, last hospitalization here in [place] in 2014, documentation was reviewed, previous suicidal attempts, she has active outpatient care with Dr. Mackenzie, she is on Latuda 80 mg twice a day, lithium 450 minute 1 twice a day, Klonopin 2 mg 4 times per day, Cymbalta 90 mg daily, hydroxyzine 50 medical as twice a day, she has medical history of DM who was brought to the ER by EMS after son called 911 due to altered mental status. Patient non-cooperative, agitated, very disorganized at this moment. Patient is disoriented, inattentive, with marked fluctuation of consciousness which is consistent with delirium rather than psychosis. Delirium in this case could be due to multiple etiologies such as underlying medical conditions and polypharmacy/anticholinergic delirium. As per mother patient has been acting bizarre, oversedated, making no much sense, internally stimulated, potentially over using baclofen. Apparently the patient has been fully compliant with her psychotropics. [place] level is 1.4, which is kind of high. Patient also has a significant UTI. Hold psychotropics. Give Haldol 2 mg IV to calm down the patient. Continue aggressive medical treatment as needed. Patient could be a good candidate for the med/psych unit. We will continue close follow-up. Case discussed with nurse in charge and with PA miss Leahy. Consult appreciated ICD Code: F05 Assessment & Plan Estimated LOS: days Dwayne You MD Oct 26, 2016 10:56
--- NOTE | 2016-10-26 13:13 | RADRPT ---
EXAM DATE/TIME: 10/26/2016 12:44 [facility] COMPARISON: No previous studies available for comparison. INDICATIONS : Right foot, great topain. MEDICAL HISTORY : bipolar disorder, manic depression disorder SURGICAL HISTORY : None. ENCOUNTER: Initial ACUITY: 1 day PAIN SCORE: Non-responsive. LOCATION: Right great toe. FINDINGS: Examination of the first digit of the right foot demonstrates no evidence of fracture or dislocation. No radiopaque foreign bodies are seen. The soft tissues are intact. CONCLUSION: Negative for fracture or gouty erosion. Michael Corona MD FACR on October 26, 2016 at 13:11 Board Certified Radiologist. This report was verified electronically.
[2016-10-26] MEDS ORDERED: LORazepam 2 MG/ML VIAL IV PUSH ONE (13:30)
[2016-10-26 15:15] VITALS: BP 155/105; PULSE 127; RESP 21; TEMP 98.1; O2SAT 93
[2016-10-26] MEDS: HALOPERIDOL LACTATE 5 MG/ML AMP IM PRN (18:25)
[2016-10-26] MEDS ORDERED: cefTRIAXone INJ 1,000 MG in SODIUM CHLORIDE 0.9% INJ 100 ML IV SCH (23:00)
[2016-10-26 23:17] VITALS: BP 161/87; PULSE 87; RESP 18; TEMP 98.4; O2SAT 97
[2016-10-27] MEDS: HALOPERIDOL LACTATE 5 MG/ML AMP IM PRN (01:42)
[2016-10-27] MEDS: INSULIN ASPART SUPPLEMENTAL SCALE SQ SCH ×4 (05:33→20:00)
[2016-10-27 07:35] VITALS: BP 152/104; PULSE 143; RESP 26; TEMP 98.6; O2SAT 94
[2016-10-27 08:11] LABS: AUTOMATED NEUTROPHIL # 17.3 TH/MM3 (1.8-7.7); BASOPHIL # 0.2 TH/MM3 (0-0.2); BASOPHIL % 0.9 % (0.0-2.0); EOSINOPHIL # 0.1 TH/MM3 (0-0.4); EOSINOPHIL % 0.3 % (0.0-4.0); HEMATOCRIT 42.9 % (35.0-46.0); HEMO FLAGS DIFF FINAL; LYMPH % 7.2 % (9.0-44.0); LYMPHOCYTE # 1.5 TH/MM3 (1.0-4.8); MEAN CELL VOLUME 85.5 FL (80.0-100.0); MEAN CORPUSCULAR HGB CONC 32.7 % (32.0-36.0); MONO % 10.1 % (0.0-8.0); NEUT % 81.5 % (16.0-70.0); PLATELET COUNT 333 TH/MM3 (150-450); RED BLOOD COUNT 5.02 MIL/MM3 (4.00-5.30); RED CELL DISTRIBUTION WIDTH 14.5 % (11.6-17.2); WHITE BLOOD COUNT 21.3 TH/MM3 (4.0-11.0)
--- NOTE | 2016-10-27 08:49 | HHI.PYPN ---
Subjective Remarks Patient is non cooperative with evaluation, very confused and disoriented, unable to provide any meaningful information. She is agitated, has been aggressive toward staff, restrained in 4 points. She is sweaty, tremors and stiffness are noted Review of Systems ROS Limitations: Altered Mental Status, Uncooperative Neurologic: COMPLAINS OF: Tremor Objective Alert: Yes [place]: Person Mood: Agitated Affect: Restricted Memory Intact: Comment (Noncooperative) Hallucinations: Other (Noncooperative) Delusions: No Delusion Type: Other (Noncooperative) Suicidal: Ideation (Noncooperative) Homicidal: Ideation (Noncooperative) Insight/Judgement poor Labs Test 10/27/16 06:10 White Blood Count 21.3 TH/MM3 Red Blood Count 5.02 MIL/MM3 Hemoglobin 14.0 GM/DL Hematocrit 42.9 % Mean Corpuscular Volume 85.5 FL Mean Corpuscular Hemoglobin 28.0 PG Mean Corpuscular Hemoglobin 32.7 % Concent Red Cell Distribution Width 14.5 % Platelet Count 333 TH/MM3 Mean Platelet Volume 9.5 FL Neutrophils (%) (Auto) 81.5 % Lymphocytes (%) (Auto) 7.2 % Monocytes (%) (Auto) 10.1 % Eosinophils (%) (Auto) 0.3 % Basophils (%) (Auto) 0.9 % Neutrophils # (Auto) 17.3 TH/MM3 Lymphocytes # (Auto) 1.5 TH/MM3 Monocytes # (Auto) 2.1 TH/MM3 Eosinophils # (Auto) 0.1 TH/MM3 Basophils # (Auto) 0.2 TH/MM3 CBC Comment DIFF FINAL Differential Comment Date/Time Procedure Status Source Growth 10/26/16 00:10 Urine Culture - Preliminary Resulted Urine Catheterized Urine Gram Negative Ruben Vitals/IOs Vital Signs Date Time Temp Pulse Resp B/P Pulse Ox O2 Delivery O2 Flow Rate FiO2 10/27/16 07:35 98.6 143 26 152/104 94 10/26/16 07:41 Nasal Cannula 2 Intake and Output 10/26/16 10/26/16 10/27/16 08:00 16:00 00:00 Intake Total 200 ml Balance 200 ml Assessment & Plan Problem List: (1) Bipolar disorder, current episode mixed ICD Code: F31.60 (2) Bipolar disorder ICD Code: F31.9 (3) Delirium due to another medical condition Assessment & Plan: Today patient continue to be agitated, in lather restrains in 4 points, in spite of multiple doses of IV psychotropics. She continues to be very confused, disoriented, unable to follow even simple commands or follow directions,she as been aggressive toward staff. Stiffness and Autonomic instability, elevated BP and HR, also elevated WBCs noted, WBCs today 21.3m which could be suggestive of potential NMS, there is an increased risk present due to high doses of antipsychotics along high [place] levels .Will order CPK. Will discontinue all psychotropics. Also have to consider serotonin syndrome. Also might consider Neuro consult and transfer to ICU. Continue aggressive hydration. Could consider Bromocriptine and Dantrolene. ICD Code: F05 Assessment & Plan Estimated LOS: days Justification for Cont. Inpt. Patient needs medical stabilization and might need psychiatric admission once stable. Dwayne You MD Oct 27, 2016 08:49
[2016-10-27] MEDS: SODIUM CHLORIDE 0.9% FLUSH 10 ML FLUSH IV FLUSH SCH ×2 (09:00→21:00)
[2016-10-27 09:03] LABS: ALKALINE PHOSPHATASE 68 U/L (45-117); ALT (GPT) 45 U/L (10-53); ANION GAP 16 MEQ/L (5-15); AST (GOT) 119 U/L (15-37); BICARBONATE 16.3 MEQ/L (21.0-32.0); BLOOD UREA NITROGEN 10 MG/DL (7-18); CHLORIDE 106 MEQ/L (98-107); GLOMERULAR FILTRATION RATE 50 ML/MIN (>89); SODIUM (NA) 138 MEQ/L (136-145); TOTAL BILIRUBIN ADULT 0.9 MG/DL (0.2-1.0)
--- NOTE | 2016-10-27 09:04 | HHI.PR ---
Subjective Remarks Patient in bed, she is profoundly psychotic, she is not following commands. Some rigidity. Flushed skin upper trunk. In restraints. Objective Vitals Vital Signs Date Time Temp Pulse Resp B/P Pulse Ox O2 Delivery O2 Flow Rate FiO2 10/27/16 07:35 98.6 143 26 152/104 94 10/26/16 23:17 98.4 87 18 161/87 97 10/26/16 15:15 98.1 127 21 155/105 93 I/O 10/26/16 10/26/16 10/26/16 10/27/16 10/27/16 10/27/16 07:00 15:00 23:00 07:00 15:00 23:00 Intake Total 200 ml Balance 200 ml Intake Oral 200 ml # Voids 5 Result Diagram: 10/27/16 0610 10/27/16 0610 Imaging Last Impressions Chest X-Ray 10/27/16 0000 Signed Impressions: Service Date/Time: Thursday, October 27, 2016 10:44 - CONCLUSION: Patient is rotated. No acute cardiopulmonary disease identified. Isaiah Lowery MD Toe X-Ray 10/26/16 0000 Signed Impressions: Service Date/Time: Wednesday, October 26, 2016 12:44 - CONCLUSION: Negative for fracture or gouty erosion. Michael Corona MD FACR Head CT 10/25/162 Signed Impressions: Service Date/Time: Tuesday, October 25, 2016 23:56 - CONCLUSION: No acute intracranial disease. Octaviano Andres MD Objective Remarks GENERAL: Well-nourished, well-developed middle aged female patient, psychotic, in restraints. SKIN: Flushed skin upper chest and neck. Warm and dry. No rash. HEENT: Normocephalic. Atraumatic. Pupils equal and round. No scleral icterus. No injection or drainage. Mucous membranes pink and moist. NECK: Supple. Trachea midline. CARDIOVASCULAR: Regular rate and rhythm. S1, S2 noted. No murmur appreciated. RESPIRATORY: No accessory muscle use. Clear to auscultation. Breath sounds equal bilaterally. GASTROINTESTINAL: Abdomen soft, non-tender, nondistended. Normoactive bowel sounds x4. MUSCULOSKELETAL: No obvious deformities. Extremities without clubbing, cyanosis , or edema. Right great toenail partially removed, bleeding. NEUROLOGICAL: Awake and alert. No obvious cranial nerve deficits. Motor grossly within normal limits. Moving all extremities spontaneously. Normal speech. PSYCHIATRIC: Agitated mood; insight and judgment limited. A/P Problem List: (1) Encephalopathy ICD Code: G93.40 Status: Acute (2) UTI (urinary tract infection) ICD Code: N39.0 Status: Acute (3) Bipolar disorder, current episode mixed ICD Code: F31.60 Status: Acute (4) DM (diabetes mellitus) ICD Code: E11.9 Status: Acute Assessment and Plan 46-year-old female with a PMH of Anxiety, Depression, Bipolar Disorder, Schizophrenia and DM who was brought to the ER by EMS after son called 911. Per report, pt noted by son to be confused, not acting right, questionable suicidal ideation Acute Encephalopathy/Delirium: Likely multifactorial-underlying Psych disorder and acute UTI. Suspect polypharmacy/anticholinergic delirium. CT Head w/ no acute findings, images reviewed by me. Labs essentially unremarkable except for mild leukocytosis. Baseline largely unknown. Consulted psychiatry, recommends admission to med/psych unit, orders placed. Patient very agitated, not following commands, disruptive with care. Haldol prn agitation. Restraints as needed. Discussed with Dr You psychiatry. Plan to hold antipsychotic drugs as poss NMS. Dr Santamaria recommends moving the patient to ICU for closer observation poss intubation/sedation. Patient was noted very agitated. Dr You will reevaluate patient. Currently patient in leather vest as she did rip away cata and soft restraints 10/26. Discussed with Dr You. Patient might need to go to ICU for intubation /sedation. Also patient at high risk of NMS per Dr You. CPK was ordered, elevated at 5437. Will trend. Discussed with Dr Mejia ICU. Discussed with Dr Glass from ICU there is no available bed in ICU at this time. will monitor the patient closely at this time. UTI: U/a w/ UTI. S/p Rocephin in ER. Continue w/ IV Abx, IVF for hydration. Monitor urine culture. Bipolar Disorder: Bipolar/Schizophrenia on multiple psychiatric medications as outpatient - Latuda, lithium, Klonopin, Cymbalta, hydroxyzine. Psychiatry consulted, recommends holding all psychiatric meds. DM: Sliding scale w/ Accu-Cheks, hold Metformin for now until taking adequate PO. Right Great Toe Trauma: patient broke loose from leg restraint and kicked bed rail, traumatic removal right great toenail. Consult podiatry. No fracture on toe xrays, reviewed. DVT Prophylaxis: SCD/Teds. Discussed with the patient, nurse, Dr You from psych, Dr Mejia from ICU, Dr Glass from ICU Transfer to ICU for sedation/poss intubation. Problem Qualifiers (1) UTI (urinary tract infection): Qualified Code: N39.0 - Urinary tract infection without hematuria, site unspecified Earnestine Millard MD Oct 27, 2016 09:04
[2016-10-27 10:16] LABS: CKMB 50.5 NG/ML (0.5-3.6)
--- NOTE | 2016-10-27 10:41 | PD.CONS ---
[facility] Service Critical Care Medicine Consult Requested By Dr. Millard Reason for Consult Probable NMS UTI Sepsis Acute kidney insufficiency Rhabdomyolysis Primary Care Physician Unknown History of Present Illness The patient is a 46-year-old woman, with past medical history of type 2 diabetes, schizophrenia, bipolar disorder anxiety, depression, multiple psychiatric hospitalizations, who was brought to the [facility] ER for altered mental status. Patient noted by son to be confused, and more altered than baseline. ER workup showed patient was afebrile WBC 13.5 Lactic Acid 1.2, Urine Drug Screen negative UA showed UTI. Patient was admitted to hospitalist service under observation was started on ceftriaxone and psychiatry he was consulted. Yesterday patient received a total of 10 mg Haldol and 4 mg of Ativan for agitation. Today the psychiatrist Dr. Almanzar noted a change in patient's exam. She was more agitated requiring leather restraints x4. Patient was noted to be stiff and rigid in the extremities with hypertension and tachycardia, elevated WBCs 21.3 and CPK was elevated at 5437. ABG showed metabolic acidosis with base excess -10. Clinical exam, labs and background consistent with probable NMS and critical care medicine was consulted. I have seen and examined the patient. Patient has no fever but clinical and laboratory exams and fact that she received 10 mg Haldol over 20., all these raises possibility of NMS. All psychotropic medications had been discontinued. Patient is currently receiving when necessary Ativan I have ordered 1 dose of dantrolene 100 mg after patient is moved to the ICU. Also neurology has been consulted. Review of Systems ROS Limitations: Altered Mental Status Past Family Social History Allergies: Coded Allergies: No Known Allergies (Verified , 08/27/16) Past Medical History Bipolar Disorder Schizophrenia DM-2 Anxiety, Depression Multiple psychiatric hospitalizations Past Surgical History Back surgery Reported Medications Baclofen 20 Mg Tab 20 Mg PO QID Duloxetine DR (Duloxetine HCl) 60 Mg Capdr 60 Mg PO DAILY Requip (Ropinirole) 4 Mg Tab 4 Mg PO HS Cymbalta DR (Duloxetine HCl) 30 Mg Capdr 30 Mg PO DAILY Clonidine (Clonidine HCl) 0.3 Mg Tab 0.3 Mg PO QHS & Q4AM Latuda (Lurasidone) 80 Mg Tab 80 Mg PO BID [facility] Carbonate ER ([facility] Carbonate) 450 Mg Tab 450 Mg PO BID Klonopin (Clonazepam) 2 Mg Tab 2 Mg PO QID Chlorpromazine (Chlorpromazine HCl) 200 Mg Tab 200 Mg PO QID PRN Anoro Ellipta Inh (Umeclidinium/Vilanterol) 62.5-25 Mcg/Act Aero 1 Puff INH DAILY Levothyroxine (Levothyroxine Sodium) 200 Mcg Tab 200 Mcg PO DAILY Levothyroxine (Levothyroxine Sodium) 25 Mcg Tab 25 Mcg PO DAILY Metformin (Metformin HCl) 1,000 Mg Tab 1,000 Mg PO BIDPC Bydureon Inj (Exenatide) 2 Mg Vial 2 Mg SQ Q7D Hydroxyzine HCl 50 Mg Tab 50 Mg PO TID Proair Hfa 8.5 GM Inh (Albuterol Sulfate) 90 Mcg/Act Aer 2 Puff INH Q4HR PRN Active Ordered Medications Reviewed Family History Reviewed Social History Positive for tobacco and marijuana use Physical Exam Vital Signs Vital Signs Date Time Temp Pulse Resp B/P Pulse Ox O2 Delivery O2 Flow Rate FiO2 10/27/16 07:35 98.6 143 26 152/104 94 10/26/16 23:17 98.4 87 18 161/87 97 10/26/16 15:15 98.1 127 21 155/105 93 Physical Exam GENERAL: Middle-aged white female who is in ER bed, in 4 point leather restraints HEENT: WERO, EOMI. No scleral icterus or conjunctival pallor. No facial droop. CARDIOVASCULAR: Regular rate and rhythm. No obvious murmurs to auscultation. No chest tenderness to palpation. RESPIRATORY: Clear to auscultation. Breath sounds equal bilaterally. GASTROINTESTINAL: Abdomen soft, non-tender, nondistended. BS normal. MUSCULOSKELETAL: Extremities without clubbing, cyanosis, or edema. No obvious deformities. NEUROLOGICAL: Patient is verbal, with but do not answer direct questions. She does follow simple commands. No focal neurologic deficits. Moving all extremities spontaneously. Significant muscle rigidity and stiffness of upper and lower extremity Laboratory Laboratory Tests Test 10/27/16 06:10 White Blood Count 21.3 Red Blood Count 5.02 Hemoglobin 14.0 Hematocrit 42.9 Mean Corpuscular Volume 85.5 Mean Corpuscular Hemoglobin 28.0 Mean Corpuscular Hemoglobin 32.7 Concent Red Cell Distribution Width 14.5 Platelet Count 333 Mean Platelet Volume 9.5 Neutrophils (%) (Auto) 81.5 Lymphocytes (%) (Auto) 7.2 Monocytes (%) (Auto) 10.1 Eosinophils (%) (Auto) 0.3 Basophils (%) (Auto) 0.9 Neutrophils # (Auto) 17.3 Lymphocytes # (Auto) 1.5 Monocytes # (Auto) 2.1 Eosinophils # (Auto) 0.1 Basophils # (Auto) 0.2 CBC Comment DIFF FINAL Differential Comment Sodium Level 138 Potassium Level 4.0 Chloride Level 106 Carbon Dioxide Level 16.3 Anion Gap 16 Blood Urea Nitrogen 10 Creatinine 1.17 Estimat Glomerular Filtration 50 Rate Random Glucose 135 Calcium Level 9.7 Total Bilirubin 0.9 Aspartate Amino Transf 119 (AST/SGOT) Alanine Aminotransferase 45 (ALT/SGPT) Alkaline Phosphatase 68 Total Creatine Kinase 5437 Creatine Kinase MB 50.5 Creatine Kinase MB % 0.9 Total Protein 7.5 Albumin 3.9 Date/Time Procedure Status Source Growth 10/26/16 00:10 Urine Culture - Preliminary Resulted Urine Catheterized Urine Gram Negative Ruben Result Diagram: 10/27/16 0610 10/27/16 0610 Imaging CXR bibasilar atelectasis Septic Shock Reassessment Heart: Regular rate and rhythm, Other (Tachycardic) Lungs: Clear Skin: Warm Peripheral Pulses: Bounding Right Radial Bounding Left Radial Assessment and Plan Assessment and Plan ASSESSMENT Neuroleptic malignant syndrome Severe sepsis UTI Rhabdomyolysis Acute kidney insufficiency Acute psychosis PLAN: NEURO: Possible NMS Acute psychosis Encephalopathy -Neurology consulted. Also discussed with Dr. You D/D NMS vs acute psychosis vs metabolic encephalopathy -Clinical exam of stiffness/rigidity of the extremities, CPK more than 5000, and history of receiving Haldol 10 mg in last 20 hours, raises possibility of NMS -Continue when necessary Ativan. [id number] mg IV 1 -ICU admission and close neuro exam -IV hydration with 2 L normal saline fluid boluses and IV fluids at 175 ml per hour -Neurology consulted RESP: -Nasal cannula oxygen -DuoNeb every 6 hours and when necessary CV: SIRS Hypertension tachycardia -Normal saline IV fluids 2 L bolus, and 125 mL per hour -Bicarbonate infusion at 50 ML per GI: -Nothing by mouth except meds, IV Protonix : Acute kidney insufficiency -Monitor renal function closely. Guillen catheter. -Continue aggressive IV hydration as above ID: UTI Severe sepsis -DC Rocephin start cefepime 2 g IV every 12 hours -Follow up on urine and blood culture -Check lactic acid HEME: -Monitor CBC, CMP, coags ENDO: Hypophosphatemia -Electrolyte replacement per protocol PROPH: -Bilateral lower extremity SCDs. Lovenox 40 mg subcutaneous daily. Protonix for GI prophylaxis LINES: -Utilize peripheral IVs, central line if needed CC time 50 min Code Status Full Discussed Condition With Kimberly Putnam MD Oct 27, 2016 10:41
[2016-10-27] MEDS: LORazepam 2 MG/ML VIAL IV PUSH PRN (10:43)
[2016-10-27] MEDS: SODIUM CHLOR 0.9% 1000 ML INJ 1,000 ML IV SCH ×2 (10:44→15:37)
[2016-10-27] MEDS ORDERED: POTASSIUM PHOSPHATE INJ 30 MMOL in SODIUM CHLOR 0.9% 250 ML INJ 250 ML IV PRN (10:45)
[2016-10-27] MEDS ORDERED: POTASSIUM CHLOR 20 MEQ PREMIX 100 ML IV PRN ×2 (10:45)
[2016-10-27] MEDS ORDERED: POTASSIUM PHOSPHATE MONOBASIC 500 MG TAB PO/TUBE PRN (10:45)
[2016-10-27] MEDS ORDERED: POTASSIUM PHOSPHATE MONOBASIC 500 MG TAB PO PRN (10:45)
[2016-10-27] MEDS ORDERED: SODIUM PHOSPHATE INJ 30 MMOL in SODIUM CHLOR 0.9% 250 ML INJ 240 ML IV PRN (10:45)
[2016-10-27] MEDS ORDERED: MAGNESIUM SULFATE INJ 4 GM in SODIUM CHLORIDE 0.9% INJ 92 ML IV PRN (10:45)
[2016-10-27] MEDS ORDERED: MAGNESIUM SULFATE INJ 2 GM in SODIUM CHLORIDE 0.9% INJ 96 ML IV PRN (10:45)
[2016-10-27] MEDS ORDERED: POTASSIUM CHLOR 40 MEQ PREMIX 100 ML IV PRN ×2 (10:45)
[2016-10-27] MEDS ORDERED: MAGNESIUM OXIDE 400 MG TAB PO PRN (10:45)
[2016-10-27 10:47] VITALS: BP 129/69; PULSE 118; RESP 18; TEMP 95.4; O2SAT 94
[2016-10-27 11:20] LABS: BLOOD GAS CARBOXYHEMOGLOBIN 0.9 % (0-4); BLOOD GAS HCO3 14 mmol/L (22-26); BLOOD GAS METHEMOGLOBIN 0.4 % (0-2); BLOOD GAS O2 HGB SATURATION 96 % (90-100); BLOOD GAS OXYGEN CONTENT 19.3 Vol % (12.0-20.0); BLOOD GAS PCO2 22 mmHg (38-42); BLOOD GAS PO2 80 mmHG (61-120); BLOOD GAS TOTAL HGB 14.3 G/DL (12.0-16.0); TEMP CORR TO 98.6
[2016-10-27 11:21] LABS: CRITICAL VALUE YES; DRAW SITE LT RADIAL; NUMBER OF ARTERIAL PUNCTURES 1; OXYGEN DEVICE ROOM AIR; STAT YES; ULNAR PULSE PRESENT
--- NOTE | 2016-10-27 11:22 | RADRPT ---
EXAM DATE/TIME: 10/27/2016 10:44 [facility] COMPARISON: CHEST SINGLE AP, October 25, 2016, 22:36. INDICATIONS : Short of breath. MEDICAL HISTORY : manic depressive disorder, bipolar disorder SURGICAL HISTORY : None. ENCOUNTER: Initial ACUITY: 2 days PAIN SCORE: Non-responsive. LOCATION: Bilateral chest FINDINGS: Single AP view of the chest.. Patient is quite rotated into the IVORIAN position. Cardiomediastinal silho uette grossly unchanged. Lungs grossly clear. No evidence of pleural effusion or pneumothorax. CONCLUSION: Patient is rotated. No acute cardiopulmonary disease identified. Isaiah Lowery MD on October 27, 2016 at 11:19 Board Certified Radiologist. This report was verified electronically.
[2016-10-27] MEDS ORDERED: SODIUM CHLOR 0.9% 1000 ML INJ 1,000 ML IV ONE ×2 (12:00)
[2016-10-27 12:08] LABS: MAGNESIUM 1.6 MG/DL (1.5-2.5); POTASSIUM 4.2 MEQ/L (3.5-5.1)
[2016-10-27] MEDS: CEFEPIME INJ 2,000 MG in SODIUM CHLORIDE 0.9% INJ 100 ML IV SCH (12:28)
--- NOTE | 2016-10-27 12:55 | MB ---
cc: SUZANNE DONG M.D. DATE OF CONSULTATION 10/27/2016 DATE OF 1970, 46 REASON FOR CONSULTATION Neuroleptic malignant syndrome. HISTORY OF PRESENT ILLNESS The patient is a 46-year-old woman. History is taken from the chart, with a history of anxiety, depression, bipolar disorder, schizophrenia and diabetes, who comes into the ER after her son called 9-1-1 when he noted that she was confused, not acting appropriate. The patient cannot give me any reliable history. She did not state her date of and age, but states she has a son. When asked how old is her son, she states 5. PAST MEDICAL HISTORY She has a past medical history as described. ALLERGIES None reported. FAMILY HISTORY Noncontributory. SOCIAL HISTORY As per chart, no tobacco, alcohol or drugs except marijuana. MEDICATIONS Her home medicines per chart: 1. Baclofen 2. Duloxetine 3. Requip 4. Cymbalta 5. Clonidine 6. Latuda 7. Amity 8. Clonazepam 9. Chlorpromazine 10. Ellipta 11. Synthroid 12. Metformin 13. Vytorin 14. Hydroxyzine 15. ProAir ALLERGIES None reported. PHYSICAL EXAM On exam, current vitals temperature 95.4. She has remained afebrile since admission, heart rate 118, respiratory rate 18, blood pressure 129/69 sating at 94% room air. GENERAL: She is confused in restraints except left hand. She is able to state her date of and age. She thinks she is in [place]. She was able to tell me she has a 5-year-old son if that is accurate. NEUROLOGIC: Pupils are 3 mm down to 2 mm. Face symmetrical. Speech is intact. She is not dysarthric. Motor: Somewhat increased tone, but she does not relax with asked her to. There is some tremor in her extremities. DTRs are brisk. Toes withdraws. She can lift both arms and legs without difficulty, but cannot assess her formal strength due to her participation. Gait is withheld. LABORATORY DATA The current white count 21.3, neutrophils 81.5%, platelets 333,000, her ammonia level is 26. CK is 5437, CK 250.5, CK percent 0.9, albumin 3.9. Her TSH is 2.880. Her BUN is 10, creatinine 1.17, glucose 135, GFR 50. Toxicology thus far negative. Amity level 1.4, salicylates 4.3, acetaminophen less than 2. Urine large leuk-esterase, his culture looks like is E-coli. Chest x-ray, no acute disease seen. CT head, no acute pathology. IMPRESSION Acute encephalopathy delirium certainly may be multifactorial, may be due to neuroleptic malignant syndrome. She certainly has the antipsychotic drugs per her chart. She is delirious. She has an elevated CK. Right now, she does not have a fever or autonomic instability. Would recommend getting an EEG. Watch her for hyperthermia and treat aggressively if indicated. Dantrolene has been started by the home demonstration agent and we can continue to monitor her accordingly. I will get psychiatry to assist also with her medications. Right now all her meds have been held. I will go ahead and put an EEG in. I see that as stated the dantrolene has been ordered. Also treat her UTI and further recommendations to be made accordingly. MD INNA Go/LAUREN /12:37 PM /12:45 PM
[2016-10-27] MEDS ORDERED: SODIUM BICARBONATE 8.4% INJ 50 MEQ/50 ML SYR IV PUSH ONE (13:30)
[2016-10-27] MEDS ORDERED: DANTROLENE SODIUM 20 MG VIAL IV ONE (14:00)
[2016-10-27] MEDS ORDERED: SODIUM BICARBONATE 8.4% INJ 75 MEQ in SODIUM CHLOR 0.45% 1000 ML INJ 1,000 ML IV SCH (15:00)
[2016-10-27 16:00] VITALS: BP 171/87; PULSE 134; RESP 20; TEMP 98; O2SAT 94
[2016-10-27] MEDS ORDERED: CHLORHEXIDINE GLUCONATE 2 % 1 PACK (2 CLOTHS)(extra cloths) TOPICAL PRN (17:45)
[2016-10-27 18:00] VITALS: PULSE 109
[2016-10-27] MEDS ORDERED: DANTROLENE IV SCH (18:15)
[2016-10-27 20:00] VITALS: BP 124/69; PULSE 100; RESP 25; TEMP 100; O2SAT 95
[2016-10-27 22:00] VITALS: PULSE 128
[2016-10-28] VITALS (11 sets, daily range): BP systolic 117–155; BP diastolic 60–87; PULSE 70–150; RESP 22–30; TEMP 97.7–99.7; O2SAT 92–100
[2016-10-28 00:47] LABS: BACTERIA, URINE OCC /hpf; BLOOD, URINE MOD (NEG); COMMENT (UR) CATH-CULTURE IND; CULTURE IF INDICATED CATH CULTURE IND; GLUCOSE,URINE NEG (NEG); HYALINE CAST, URINE 7 /lpf (RARE); KETONE, URINE 40 mg/dL (NEG); MUCUS URINE FEW /lpf (OCC); NITRITE,URINE POS (NEG); PH, URINE 5.5 (5.0-8.5); SQUAMOUS EPITHELIAL CELL URINE 1 /hpf (0-5); URINE COLOR YELLOW (YELLW/STRAW)
[2016-10-28] MEDS: CHLORHEXIDINE GLUCONATE 2 % 1 PACK (2 CLOTHS)(taper/protocol) TOPICAL SCH (01:24)
[2016-10-28] MEDS: CEFEPIME INJ 2,000 MG in SODIUM CHLORIDE 0.9% INJ 100 ML IV SCH ×2 (01:24→11:38)
[2016-10-28] MEDS: INSULIN ASPART SUPPLEMENTAL SCALE SQ SCH ×6 (04:00→20:00)
[2016-10-28] MEDS: SODIUM CHLOR 0.9% 1000 ML INJ 1,000 ML IV SCH ×4 (04:14→21:41)
[2016-10-28 05:23] LABS: AUTOMATED NEUTROPHIL # 9.9 TH/MM3 (1.8-7.7); BASOPHIL # 0.1 TH/MM3 (0-0.2); BASOPHIL % 0.8 % (0.0-2.0); EOSINOPHIL # 0.1 TH/MM3 (0-0.4); EOSINOPHIL % 0.7 % (0.0-4.0); HEMATOCRIT 38.9 % (35.0-46.0); HEMO FLAGS DIFF FINAL; LYMPH % 14.2 % (9.0-44.0); MEAN CELL VOLUME 84.3 FL (80.0-100.0); MEAN CORPUSCULAR HEMOGLOBIN 28.5 PG (27.0-34.0); MEAN CORPUSCULAR HGB CONC 33.8 % (32.0-36.0); MONO % 12.7 % (0.0-8.0); NEUT % 71.6 % (16.0-70.0); PLATELET COUNT 326 TH/MM3 (150-450); RED BLOOD COUNT 4.62 MIL/MM3 (4.00-5.30); RED CELL DISTRIBUTION WIDTH 14.8 % (11.6-17.2); WHITE BLOOD COUNT 13.8 TH/MM3 (4.0-11.0)
--- NOTE | 2016-10-28 05:27 | MG ---
cc: TOD LOVE M.D. Lab No: [id number] Date: 10/27/2016 Age: 46 Sex: F Race: INDICATIONS A 46-year-old, not acting right. Possible harm to self. Tremors. Schizophrenia. MEDICATIONS Ativan. FINDINGS The recording shows a symmetric 10-12 Hz, 50 microvolt posterior rhythm. However, at epoch 21 there does appear to be some first slowing over the left posterior temporal head region and then some sharp waves or almost spike-like activity with a very limited field at epoch 22 and then some beta rhythms over the right frontal and bitemporal head regions which is unclear if it could be artifact or not occurs. Then some beta rhythms over the left temporal head region is seen. Again these appear very sharp at epoch 98. The tech does not note any seizure activity. Photic stimulation was performed without significant posterior driving. IMPRESSION At times some diffuse theta slowing, what appears to be possibly some left temporal lobe epileptiform activity. A left temporal lobe abnormality needs to be ruled out. Some beta rhythms are also seen with some asymmetries and it is unclear if these could be artifact or not. Clinical correlation is needed but I would say that this is an abnormal EEG and suspicion for seizure is noted. MD SHERYL Siddiqui/HAILY /11:44 PM /5:11 AM
[2016-10-28 05:38] LABS: ALKALINE PHOSPHATASE 52 U/L (45-117); ALT (GPT) 57 U/L (10-53); ANION GAP 11 MEQ/L (5-15); AST (GOT) 137 U/L (15-37); BICARBONATE 21.9 MEQ/L (21.0-32.0); BLOOD UREA NITROGEN 10 MG/DL (7-18); CHLORIDE 109 MEQ/L (98-107); CREATINE KINASE 4306 U/L (26-192); GLOMERULAR FILTRATION RATE 67 ML/MIN (>89); MAGNESIUM 2.1 MG/DL (1.5-2.5); POTASSIUM 3.7 MEQ/L (3.5-5.1); SODIUM (NA) 142 MEQ/L (136-145); TOTAL BILIRUBIN ADULT 0.7 MG/DL (0.2-1.0)
[2016-10-28 05:54] LABS: CKMB 38.3 NG/ML (0.5-3.6)
[2016-10-28] MEDS: SODIUM CHLORIDE 0.9% FLUSH 10 ML FLUSH IV FLUSH SCH ×2 (09:00→21:00)
--- NOTE | 2016-10-28 11:36 | HHI.CCPN ---
Subjective Remarks/Hospital Course The patient is a 46-year-old woman, with past medical history of type 2 diabetes, schizophrenia, bipolar disorder anxiety, depression, multiple psychiatric hospitalizations, who was brought to the [facility] ER for altered mental status. Patient noted by son to be confused, and more altered than baseline. ER workup showed patient was afebrile WBC 13.5 Lactic Acid 1.2, Urine Drug Screen negative UA showed UTI. Patient was admitted to hospitalist service under observation was started on ceftriaxone and psychiatry he was consulted. Yesterday patient received a total of 10 mg Haldol and 4 mg of Ativan for agitation. Today the psychiatrist Dr. Almanzar noted a change in patient's exam. She was more agitated requiring leather restraints x4. Patient was noted to be stiff and rigid in the extremities with hypertension and tachycardia, elevated WBCs 21.3 and CPK was elevated at 5437. ABG showed metabolic acidosis with base excess -10. Clinical exam, labs and background consistent with probable NMS and critical care medicine was consulted. I have seen and examined the patient. Patient has no fever but clinical and laboratory exams and fact that she received 10 mg Haldol over 20., all these raises possibility of NMS. All psychotropic medications had been discontinued. Patient is currently receiving when necessary Ativan I have ordered 1 dose of dantrolene 100 mg after patient is moved to the ICU. Also neurology has been consulted. SUBJ 10/28: Received 100 mg IV dantrolene yesterday. Clinically much improved with significantly reduced stiffness. EEG 10/27: Possibly some left temporal lobe epileptiform activity. A left temporal lobe abnormality needs to be ruled out. Repeat EEG report pending. Urine output adequate CPK trending down 4300 today Objective Vital Signs Date Time Temp Pulse Resp B/P Pulse Ox O2 Delivery O2 Flow Rate FiO2 10/28/16 10:00 75 10/28/16 08:00 97.7 23 124/61 100 10/26/16 07:41 Nasal Cannula 2 Intake and Output 10/27/16 10/27/16 10/28/16 08:00 16:00 00:00 Intake Total 815 ml Balance 815 ml Result Diagram: 10/28/16 0421 10/28/16 0421 Other Results Microbiology Date/Time Procedure Status Source Growth 10/26/16 00:10 Urine Culture - Final Complete Urine Catheterized Urine Escherichia Coli Imaging CXR bibasilar atelectasis Objective Remarks GENERAL: Middle-aged white female who is in ER bed, off restraints HEENT: WERO, EOMI. No scleral icterus or conjunctival pallor. No facial droop. CARDIOVASCULAR: Regular rate and rhythm. No obvious murmurs to auscultation. No chest tenderness to palpation. RESPIRATORY: Clear to auscultation. Breath sounds equal bilaterally. GASTROINTESTINAL: Abdomen soft, non-tender, nondistended. BS normal. MUSCULOSKELETAL: Extremities without clubbing, cyanosis, or edema. No obvious deformities. NEUROLOGICAL: Patient is more verbal today communicates follows commands. No focal neurologic deficits. Moving all extremities spontaneously. Muscle rigidity and stiffness of the extremities significantly reduced A/P Assessment and Plan ASSESSMENT Probable Neuroleptic malignant syndrome Severe sepsis UTI Rhabdomyolysis Acute kidney insufficiency Acute psychosis PLAN: NEURO: Probable NMS Possible Left temporal lobe epileptiform activity Acute psychosis Encephalopathy -Gave 100 mg IV dantrolene yesterday with significant improvement in rigidity/ stiffness -EEG 10/27: Showing possible left temporal lobe epileptiform activity. No medications at this time other than when necessary Ativan. Repeat EEG -D/w Neurology Dr. Acevedo and psychiatry Dr. You -CPK trending down -Close neuro exam -IV hydration with 2 L normal saline fluid boluses 10/27 and IV fluids at 175 ml per hour-reduce to 125 ml per hour RESP: -Nasal cannula oxygen -DuoNeb every 6 hours and when necessary CV: SIRS Hypertension tachycardia -Normal saline IV fluids 2 L bolus, and 125 mL per hour -Bicarbonate infusion at 50 ML per-DC GI: -Nothing by mouth except meds, IV Protonix -Start regular diet : Acute kidney insufficiency -Monitor renal function closely. Guillen catheter. -Continue aggressive IV hydration as above ID: UTI Severe sepsis -On cefepime 2 g IV every 12 hours. Urine cx E Coli pansensitive. Will change back to Rocephin HEME: -Monitor CBC, CMP, coags ENDO: Hypophosphatemia -Electrolyte replacement per protocol PROPH: -Bilateral lower extremity SCDs. Lovenox 40 mg subcutaneous daily. Protonix for GI prophylaxis LINES: -Utilize peripheral IVs, central line if needed Level [address] [facility] [address]. Millard consulted to assume care in am 10/29/16 Kimberly Mejia MD Oct 28, 2016 11:36
[2016-10-28] MEDS: LORazepam 2 MG/ML VIAL IV PUSH PRN ×3 (11:38→22:21)
--- NOTE | 2016-10-28 12:52 | HHI.PYPN ---
Subjective Remarks Patient seen for psychiatric evaluation today, she was found in the ICU, a running fan close to her, patient was found sleeping, can of lethargic, but arousable. She can open her eyes when she is asked to do so and answer most of our questions. Patient complains of "feeling hot", she states "I feel a lot of heat in my face". She reports her mood as depressed "because I don't feel well ", but she denies anhedonia, she denies hopelessness, she denies worthlessness, she denies helplessness, she denies suicidal or homicidal ideation, she denies visual and auditory hallucinations. Patient says that she is motivated to get better and go back home to take care of her kids and her mother. Patient this time is fully oriented 3, she is logical, coherent and relevant. No agitation , no aggressive behavior, no delusions, no paranoia are observed or reported. She does present moderate lower and upper limbs stiffness and rigidity. Review of Systems Constitutional: COMPLAINS OF: Diaphoretic episodes (patient complains of hyperthermia), Night Sweats Endocrine: DENIES: Abnorml menstrual pattern, Heat/cold intolerance, Polydipsia , Polyuria, Polyphagia Eyes: DENIES: Blurred vision, Diplopia, Eye inflammation, Eye pain, Vision loss , Photosensitivity, Double Vision Ears, nose, mouth, throat: DENIES: Tinnitus, Hearing loss, Vertigo, Nasal discharge, Oral lesions, Throat pain, Hoarseness, Ear Pain, Running Nose, Epistaxis, Sinus Pain, Toothache, Odynophagia Respiratory: DENIES: Apneas, Cough, Snoring, Wheezing, Hemoptysis, Sputum production, Shortness of breath Cardiovascular: DENIES: Chest pain, Palpitations, Syncope, Dyspnea on Exertion , PND, Lower Extremity Edema, Orthopnea, Claudication Gastrointestinal: DENIES: Abdominal pain, Black stools, Bloody stools, Constipation, Diarrhea, Nausea, Vomiting, Difficulty Swallowing, Anorexia Musculoskeletal: COMPLAINS OF: Stiffness, DENIES: Joint pain, Muscle aches, Joint Swelling, Back pain, Neck pain Integumentary: DENIES: Abnormal pigmentation, Pruritus, Rash, Nail changes, Breast masses, Breast skin changes, Nipple discharge Hematologic/lymphatic: DENIES: Bruising, Lymphadenopathy Immunologic/allergic: DENIES: Eczema, Urticaria Neurologic: DENIES: Abnormal gait, Headache, Localized weakness, Paresthesias, Seizures, Speech Problems, Tremor, Poor Balance Psychiatric: COMPLAINS OF: Depression, DENIES: Anxiety, Confusion, Mood changes, Hallucinations, Agitation, Suicidal Ideation, Homicidal Ideation, Delusions Objective Alert: Yes [place]: Person, Place, Date, Situation Mood: Calm Affect: Euthymic, Restricted Memory Intact: Immediate, Recent, Remote Hallucinations: Other (she denies) Delusions: No Delusion Type: Other (she denies) Suicidal: Ideation (she denies) Homicidal: Ideation (she denies) Insight/Judgement poor Labs Test 10/27/16 10/27/16 10/28/16 15:30 22:30 04:21 Nasal Screen MRSA (PCR) NEGATIVE Lactic Acid Level 2.6 mmol/L Urine Color YELLOW Urine Turbidity CLEAR Urine pH 5.5 Urine Specific [place] 1.021 Urine Protein 30 mg/dL Urine Glucose (UA) NEG mg/dL Urine Ketones 40 mg/dL Urine Occult Blood MOD Urine Nitrite POS Urine Bilirubin NEG Urine Urobilinogen LESS THAN 2.0 MG/DL Urine Leukocyte Esterase TRACE Urine RBC 10 /hpf Urine WBC 8 /hpf Urine Squamous Epithelial 1 /hpf Cells Urine Bacteria OCC /hpf Urine Hyaline Casts 7 /lpf Urine Mucus FEW /lpf Microscopic Urinalysis Comment CATH-CULTURE IND White Blood Count 13.8 TH/MM3 Red Blood Count 4.62 MIL/MM3 Hemoglobin 13.2 GM/DL Hematocrit 38.9 % Mean Corpuscular Volume 84.3 FL Mean Corpuscular Hemoglobin 28.5 PG Mean Corpuscular Hemoglobin 33.8 % Concent Red Cell Distribution Width 14.8 % Platelet Count 326 TH/MM3 Mean Platelet Volume 8.5 FL Neutrophils (%) (Auto) 71.6 % Lymphocytes (%) (Auto) 14.2 % Monocytes (%) (Auto) 12.7 % Eosinophils (%) (Auto) 0.7 % Basophils (%) (Auto) 0.8 % Neutrophils # (Auto) 9.9 TH/MM3 Lymphocytes # (Auto) 2.0 TH/MM3 Monocytes # (Auto) 1.8 TH/MM3 Eosinophils # (Auto) 0.1 TH/MM3 Basophils # (Auto) 0.1 TH/MM3 CBC Comment DIFF FINAL Differential Comment Sodium Level 142 MEQ/L Potassium Level 3.7 MEQ/L Chloride Level 109 MEQ/L Carbon Dioxide Level 21.9 MEQ/L Anion Gap 11 MEQ/L Blood Urea Nitrogen 10 MG/DL Creatinine 0.91 MG/DL Estimat Glomerular Filtration 67 ML/MIN Rate Random Glucose 149 MG/DL Calcium Level 8.5 MG/DL Magnesium Level 2.1 MG/DL Total Bilirubin 0.7 MG/DL Aspartate Amino Transf 137 U/L (AST/SGOT) Alanine Aminotransferase 57 U/L (ALT/SGPT) Alkaline Phosphatase 52 U/L Total Creatine Kinase 4306 U/L Creatine Kinase MB 38.3 NG/ML Creatine Kinase MB % 0.9 % Total Protein 6.3 GM/DL Albumin 3.2 GM/DL Date/Time Procedure Status Source Growth 10/27/16 22:30 Urine Culture Received Urine Catheterized Urine Pending 10/27/16 11:22 Aerobic Blood Culture - Preliminary Resulted Blood Peripheral NO GROWTH IN 1 DAY 10/27/16 11:22 Anaerobic Blood Culture - Preliminary Resulted Blood Peripheral NO GROWTH IN 1 DAY 10/26/16 00:10 Urine Culture - Final Complete Urine Catheterized Urine Escherichia Coli Vitals/IOs Vital Signs Date Time Temp Pulse Resp B/P Pulse Ox O2 Delivery O2 Flow Rate FiO2 10/28/16 12:00 99 10/28/16 12:00 99.7 24 117/87 99 10/26/16 07:41 Nasal Cannula 2 Intake and Output 10/27/16 10/27/16 10/28/16 08:00 16:00 00:00 Intake Total 815 ml Balance 815 ml Assessment & Plan Problem List: (1) Bipolar disorder, current episode mixed ICD Code: F31.60 (2) Bipolar disorder ICD Code: F31.9 (3) Delirium due to another medical condition ICD Code: F05 (4) Neuroleptic malignant syndrome Assessment & Plan: On psychiatric evaluation today patient does present a significant improvement in mentation and behavior, patient is lethargic, distant , superficially cooperative, but fully oriented 3, logical, coherent and relevant. With endorsed situational depression, but no anhedonia, no hopelessness, no helplessness, no suicidal or homicidal ideation. Patient denies perceptual disturbances, no psychosis, agitation, aggressive behavior or disorganized behavior observed. I have noted that her vital signs are more stable today, CPK is trending down, but significant rigidity and subjective hyperthermia still present. Will gave and a stat dose of Ativan 2 mg IV which to help with rigidity. Continue aggressive medical treatment as per primary care team. Continue to hold Psychiatric medications. If the stiffness persist might consider another dose of dantrolene 100 mg. Also might consider a dopaminergic agent such as bromocriptine 2.5 mg/5 mg twice a day. Once patient is more medical stable she can be transferred to the med psych unit. ICD Code: G21.0 Assessment & Plan Estimated LOS: days Justification for Cont. Inpt. Once medically stable patient is going to need psychiatric hospitalization to restart her psychotropics and monitor psychosis and behavior. Dwayne You MD Oct 28, 2016 12:52
--- NOTE | 2016-10-28 23:43 | MG ---
cc: TOD LOVE M.D. Sex: F [id number] HISTORY: A 41 year-old woman, tremors. Schizophrenia. Possibly some left temporal abnormality in the past on EEG. DESCRIPTION: The recording shows a symmetric 7 Hz to 6 Hz, diffuse slowing of this recording, the amplitude is a little bit higher on the left temporal lobes than the right. Some muscle artifact is seen on the left temporal lobe, starting at epoch 55. The patient is noted to be moving. Right arm shaking is noted but this does not correlate with any abnormal activity just some left temporal and at times bitemporal muscle artifact. For some reason most of the artifact always seems to be central to the left temporal head region. I do not see any definite seizure activity. There is an asymmetry in the amplitudes. It is unclear if it is just movement artifact or if she is going into a rapid tachycardia but it would be at such a high rate, it appears to be muscle movement as the patient's arm was shaking during part of that episode. Her right arm shaking certainly has some asymmetry in the left temporal area, but it does not look particularly epileptiform. IMPRESSION Again, there is some asymmetry in the background, in the left temporal head region. With the arm shaking it is hard to tell if it is muscle movement artifact or not. It correlates with the arm shaking. I would say probably not epileptiform but I could not ascertain for sure during this EEG. Clinical correlation is needed. MD SHERYL Siddiqui/BRIANNE /10:35 PM /11:35 PM
[2016-10-29] VITALS (12 sets, daily range): BP systolic 143–167; BP diastolic 77–91; PULSE 84–103; RESP 20–26; TEMP 98.3–100; O2SAT 96–100
[2016-10-29] MEDS: CEFEPIME INJ 2,000 MG in SODIUM CHLORIDE 0.9% INJ 100 ML IV SCH ×3 (01:05→23:11)
[2016-10-29] MEDS: LORazepam 2 MG/ML VIAL IV PUSH PRN ×2 (03:19→19:58)
[2016-10-29] MEDS: CHLORHEXIDINE GLUCONATE 2 % 1 PACK (2 CLOTHS)(taper/protocol) TOPICAL SCH ×2 (03:22→20:15)
[2016-10-29] MEDS: INSULIN ASPART SUPPLEMENTAL SCALE SQ SCH ×7 (04:00→23:12)
[2016-10-29 05:06] LABS: BASOPHIL # 0.2 TH/MM3 (0-0.2); BASOPHIL % 1.3 % (0.0-2.0); EOSINOPHIL # 0.3 TH/MM3 (0-0.4); EOSINOPHIL % 2.1 % (0.0-4.0); HEMATOCRIT 40.8 % (35.0-46.0); HEMO FLAGS DIFF FINAL; LYMPH % 16.9 % (9.0-44.0); MEAN CELL VOLUME 86.4 FL (80.0-100.0); MEAN CORPUSCULAR HEMOGLOBIN 28.2 PG (27.0-34.0); MEAN CORPUSCULAR HGB CONC 32.6 % (32.0-36.0); NEUT % 66.7 % (16.0-70.0); PLATELET COUNT 281 TH/MM3 (150-450); RED BLOOD COUNT 4.72 MIL/MM3 (4.00-5.30); RED CELL DISTRIBUTION WIDTH 14.9 % (11.6-17.2)
[2016-10-29 05:42] LABS: ALKALINE PHOSPHATASE 48 U/L (45-117); CREATINE KINASE 2489 U/L (26-192); TOTAL BILIRUBIN ADULT 0.6 MG/DL (0.2-1.0)
[2016-10-29 05:57] LABS: ALT (GPT) 53 U/L (10-53); ANION GAP 9 MEQ/L (5-15); AST (GOT) 90 U/L (15-37); BICARBONATE 21.4 MEQ/L (21.0-32.0); BLOOD UREA NITROGEN 8 MG/DL (7-18); CHLORIDE 111 MEQ/L (98-107); GLOMERULAR FILTRATION RATE 73 ML/MIN (>89); POTASSIUM 3.6 MEQ/L (3.5-5.1); SODIUM (NA) 141 MEQ/L (136-145)
[2016-10-29 06:07] LABS: CKMB 11.3 NG/ML (0.5-3.6)
--- NOTE | 2016-10-29 08:27 | HHI.PR ---
Subjective Remarks looks better Objective Vital Signs Date Time Temp Pulse Resp B/P Pulse Ox O2 Delivery O2 Flow Rate FiO2 10/29/16 06:00 100 10/29/16 04:00 98.5 99 20 152/86 99 10/29/16 04:00 99 10/29/16 02:00 87 10/29/16 00:00 93 10/29/16 00:00 98.6 93 20 156/91 100 10/28/16 22:00 150 10/28/16 20:00 102 10/28/16 20:00 98.4 102 22 135/62 98 10/28/16 18:00 96 10/28/16 16:00 98.4 88 22 150/64 100 10/28/16 16:00 88 10/28/16 14:00 84 10/28/16 12:00 99 10/28/16 12:00 99.7 99 24 117/87 99 10/28/16 10:00 75 I/O 10/28/16 10/28/16 10/28/16 10/29/16 10/29/16 10/29/16 07:00 15:00 23:00 07:00 15:00 23:00 Intake Total 1200 ml 1958 ml 812 ml 1444 ml Output Total 800 ml 750 ml 800 ml 500 ml Balance 400 ml 1208 ml 12 ml 944 ml Intake Oral 600 ml 240 ml 200 ml 600 ml IV Total 600 ml 1718 ml 612 ml 844 ml Output Urine Total 800 ml 750 ml 800 ml 500 ml Stool Total 0 ml Result Diagram: 10/29/16 0413 10/29/16 0413 Objective Remarks awake and alet nad speech hypophonic perrla no rigidity Assessment and Plan Assessment and Plan possible NMS eeg ok no evidence of sz's. continue current care. Akila Jasso MD Oct 29, 2016 08:27
[2016-10-29] MEDS: SODIUM CHLORIDE 0.9% FLUSH 10 ML FLUSH IV FLUSH SCH ×2 (09:00→19:58)
[2016-10-29] MEDS: SODIUM CHLOR 0.9% 1000 ML INJ 1,000 ML IV SCH ×3 (09:03→23:13)
--- NOTE | 2016-10-29 10:41 | HHI.PYPN ---
Subjective Remarks Patient was seen today for psychiatric evaluation, patient was found in her bed , calm, cooperative and pleasant . She reports improvement, still feeling "a little hot", but she reports good mood, no pain, no distress, denies depressive symptoms, she denies anxiety, she denies perceptual disturbances, she denies manic symptoms, she denies suicidal or homicidal ideation, she denies visual and auditory hallucinations. Patient is fully oriented 3, no confusion, no fluctuation of consciousness, no attention deficit observed. Patient is very communicative, she is concerned about her discharge, also concerned about her psychiatric follow-up at her medications. She says that she is planning to continue her psychiatric care in the [facility] with Dr. Mckinney. No agitation, no aggressive behavior has been reported . I spoke personally with Dr. Ragsdale in the [facility], outpatient psychiatrist, and informed her about the discontinuation of psychotropics due to NMS. She says that she is okay with current management, I agree with holding antipsychotics. She will work out a new regimen in outpatient basis. Review of Systems Constitutional: COMPLAINS OF: Diaphoretic episodes, Night Sweats, DENIES: Fatigue, Fever, Weight gain, Weight loss, Chills, Dizziness, Change in appetite Endocrine: DENIES: Abnorml menstrual pattern, Heat/cold intolerance, Polydipsia , Polyuria, Polyphagia Eyes: DENIES: Blurred vision, Diplopia, Eye inflammation, Eye pain, Vision loss , Photosensitivity, Double Vision Ears, nose, mouth, throat: DENIES: Tinnitus, Hearing loss, Vertigo, Nasal discharge, Oral lesions, Throat pain, Hoarseness, Ear Pain, Running Nose, Epistaxis, Sinus Pain, Toothache, Odynophagia Respiratory: DENIES: Apneas, Cough, Snoring, Wheezing, Hemoptysis, Sputum production, Shortness of breath Cardiovascular: DENIES: Chest pain, Palpitations, Syncope, Dyspnea on Exertion , PND, Lower Extremity Edema, Orthopnea, Claudication Gastrointestinal: DENIES: Abdominal pain, Black stools, Bloody stools, Constipation, Diarrhea, Nausea, Vomiting, Difficulty Swallowing, Anorexia Musculoskeletal: DENIES: Joint pain, Muscle aches, Stiffness, Joint Swelling, Back pain, Neck pain Integumentary: DENIES: Abnormal pigmentation, Pruritus, Rash, Nail changes, Breast masses, Breast skin changes, Nipple discharge Hematologic/lymphatic: DENIES: Bruising, Lymphadenopathy Immunologic/allergic: DENIES: Eczema, Urticaria Neurologic: DENIES: Abnormal gait, Headache, Localized weakness, Paresthesias, Seizures, Speech Problems, Tremor, Poor Balance Psychiatric: DENIES: Anxiety, Confusion, Mood changes, Depression, Hallucinations, Agitation, Suicidal Ideation, Homicidal Ideation, Delusions Objective Alert: Yes [place]: Person, Place, Date, Situation Mood: Calm Affect: Restricted Memory Intact: Immediate, Recent, Remote Hallucinations: Other (she denies) Delusions: No Delusion Type: Other (she denies) Suicidal: Ideation (she denies) Homicidal: Ideation (she denies) Insight/Judgement Good Labs Test 10/29/16 04:13 White Blood Count 12.0 TH/MM3 Red Blood Count 4.72 MIL/MM3 Hemoglobin 13.3 GM/DL Hematocrit 40.8 % Mean Corpuscular Volume 86.4 FL Mean Corpuscular Hemoglobin 28.2 PG Mean Corpuscular Hemoglobin 32.6 % Concent Red Cell Distribution Width 14.9 % Platelet Count 281 TH/MM3 Mean Platelet Volume 8.3 FL Neutrophils (%) (Auto) 66.7 % Lymphocytes (%) (Auto) 16.9 % Monocytes (%) (Auto) 13.0 % Eosinophils (%) (Auto) 2.1 % Basophils (%) (Auto) 1.3 % Neutrophils # (Auto) 8.0 TH/MM3 Lymphocytes # (Auto) 2.0 TH/MM3 Monocytes # (Auto) 1.6 TH/MM3 Eosinophils # (Auto) 0.3 TH/MM3 Basophils # (Auto) 0.2 TH/MM3 CBC Comment DIFF FINAL Differential Comment Sodium Level 141 MEQ/L Potassium Level 3.6 MEQ/L Chloride Level 111 MEQ/L Carbon Dioxide Level 21.4 MEQ/L Anion Gap 9 MEQ/L Blood Urea Nitrogen 8 MG/DL Creatinine 0.84 MG/DL Estimat Glomerular Filtration 73 ML/MIN Rate Random Glucose 140 MG/DL Calcium Level 8.1 MG/DL Total Bilirubin 0.6 MG/DL Aspartate Amino Transf 90 U/L (AST/SGOT) Alanine Aminotransferase 53 U/L (ALT/SGPT) Alkaline Phosphatase 48 U/L Total Creatine Kinase 2489 U/L Creatine Kinase MB 11.3 NG/ML Creatine Kinase MB % 0.5 % Total Protein 6.5 GM/DL Albumin 3.2 GM/DL Date/Time Procedure Status Source Growth 10/27/16 22:30 Urine Culture Received Urine Catheterized Urine Pending 10/27/16 11:22 Aerobic Blood Culture - Preliminary Resulted Blood Peripheral NO GROWTH IN 1 DAY 10/27/16 11:22 Anaerobic Blood Culture - Preliminary Resulted Blood Peripheral NO GROWTH IN 1 DAY 10/26/16 00:10 Urine Culture - Final Complete Urine Catheterized Urine Escherichia Coli Vitals/IOs Vital Signs Date Time Temp Pulse Resp B/P Pulse Ox O2 Delivery O2 Flow Rate FiO2 10/29/16 06:00 100 10/29/16 04:00 98.5 20 152/86 99 10/26/16 07:41 Nasal Cannula 2 Intake and Output 10/28/16 10/28/16 10/29/16 08:00 16:00 00:00 Intake Total 1200 ml 1958 ml 812 ml Output Total 800 ml 750 ml 800 ml Balance 400 ml 1208 ml 12 ml Assessment & Plan Problem List: (1) Bipolar disorder, current episode mixed ICD Code: F31.60 (2) Bipolar disorder ICD Code: F31.9 (3) Delirium due to another medical condition ICD Code: F05 (4) Neuroleptic malignant syndrome Assessment & Plan: Patient definitely doing much better, now fully oriented, without any rigidity or stiffness, with a brighter mood. She denies perceptual disturbances, no savanah, no psychosis, no delusions, no aggressive behavior or agitation observed or reported. Outpatient psychiatrist Dr. Mckinney was fully informed of current situation. Continue to hold psychotropics. Planning to restart is slowly lithium and antipsychotics in the med/psy unit. ICD Code: G21.0 Assessment & Plan Estimated LOS: days Justification for Cont. Inpt. Patient would benefit of psychiatric admission in [facility] to restart psychotropics and for transition to outpatient care. Dwayne You MD Oct 29, 2016 10:40
--- NOTE | 2016-10-29 12:14 | HHI.DS ---
Discharge Summary Admission Date Oct 27, 2016 at 15:20 Discharge Date: Oct 29, 2016 Admitting Diagnosis UTI, AMS (1) ARF (acute renal failure) ICD Code: N17.9 Diagnosis: Principal (2) Neuroleptic malignant syndrome ICD Code: G21.0 Diagnosis: Principal (3) Encephalopathy ICD Code: G93.40 Diagnosis: Principal (4) UTI (urinary tract infection) ICD Code: N39.0 Diagnosis: Principal (5) Bipolar disorder, current episode mixed ICD Code: F31.60 Diagnosis: Secondary (6) Bipolar disorder ICD Code: F31.9 Diagnosis: Secondary (7) Sepsis ICD Code: A41.9 Diagnosis: Principal Procedures none Brief History - From Admission This is a 46-year-old female with a PMH of Anxiety, Depression, Bipolar Disorder , Schizophrenia and DM who was brought to the ER by EMS after son called 911. Per report, pt noted by son to be confused, not acting right, questionable suicidal ideation, however pt non-verbal and providing no history. Per review of records, pt w/ Bipolar/Schizophrenia, paranoia w/ blunted affect, slow processing. On arrival, BP 142/77, HR 101, O2 sat 95% on RA, Afebrile. WBC 13.5. GFR 61. Lactic Acid 1.2. LFTs normal. Ammonia 26. Urine Drug Screen negative. Alcohol negative. Tylenol/Salicylate negative. UA positive for UTI. CXR with cardiomegaly and probable basilar atelectasis. CT Head with no acute findings. S/p Rocephin IV in ER. CBC/BMP: 10/29/16 0413 10/29/16 0413 Significant Findings Laboratory Tests Test 10/27/16 10/27/16 10/27/16 10/27/16 06:10 11:01 11:15 15:30 White Blood Count 21.3 TH/MM3 (4.0-11.0) Neutrophils (%) (Auto) 81.5 % (16.0-70.0) Lymphocytes (%) (Auto) 7.2 % (9.0-44.0) Monocytes (%) (Auto) 10.1 % (0.0-8.0) Neutrophils # (Auto) 17.3 TH/MM3 (1.8-7.7) Monocytes # (Auto) 2.1 TH/MM3 (0-0.9) Carbon Dioxide Level 16.3 MEQ/L (21.0-32.0) Anion Gap 16 MEQ/L (5-15) Creatinine 1.17 MG/DL (0.50-1.00) Estimat Glomerular Filtration 50 ML/MIN (>89) Rate Random Glucose 135 MG/DL (74-106) Aspartate Amino Transf 119 U/L (15-37) (AST/SGOT) Total Creatine Kinase 5437 U/L (26-192) Creatine Kinase MB 50.5 NG/ML (0.5-3.6) Phosphorus Level 2.0 MG/DL (2.5-4.9) Blood Gas HCO3 14 mmol/L (22-26) Blood Gas Base Excess -10.0 mmol/L (-2-2) Arterial Blood Partial 22 mmHg (38-42) Pressure CO2 Lactic Acid Level 2.6 mmol/L (0.4-2.0) Test 10/27/16 10/28/16 10/29/16 22:30 04:21 04:13 Urine Protein 30 mg/dL (NEG-TRACE) Urine Ketones 40 mg/dL (NEG) Urine Occult Blood MOD (NEG) Urine Nitrite POS (NEG) Urine Leukocyte Esterase TRACE (NEG) Urine RBC 10 /hpf (0-3) Urine WBC 8 /hpf (0-5) Urine Bacteria OCC /hpf (NONE) Urine Mucus FEW /lpf (OCC) White Blood Count 13.8 TH/MM3 12.0 TH/MM3 (4.0-11.0) (4.0-11.0) Neutrophils (%) (Auto) 71.6 % (16.0-70.0) Monocytes (%) (Auto) 12.7 % 13.0 % (0.0-8.0) (0.0-8.0) Neutrophils # (Auto) 9.9 TH/MM3 8.0 TH/MM3 (1.8-7.7) (1.8-7.7) Monocytes # (Auto) 1.8 TH/MM3 1.6 TH/MM3 (0-0.9) (0-0.9) Chloride Level 109 MEQ/L 111 MEQ/L (98-107) (98-107) Estimat Glomerular Filtration 67 ML/MIN (>89) 73 ML/MIN (>89) Rate Random Glucose 149 MG/DL 140 MG/DL (74-106) (74-106) Aspartate Amino Transf 137 U/L (15-37) 90 U/L (15-37) (AST/SGOT) Alanine Aminotransferase 57 U/L (10-53) (ALT/SGPT) Total Creatine Kinase 4306 U/L 2489 U/L (26-192) (26-192) Creatine Kinase MB 38.3 NG/ML 11.3 NG/ML (0.5-3.6) (0.5-3.6) Total Protein 6.3 GM/DL (6.4-8.2) Albumin 3.2 GM/DL 3.2 GM/DL (3.4-5.0) (3.4-5.0) Calcium Level 8.1 MG/DL (8.5-10.1) Imaging Last Impressions Chest X-Ray 10/27/16 0000 Signed Impressions: Service Date/Time: Thursday, October 27, 2016 10:44 - CONCLUSION: Patient is rotated. No acute cardiopulmonary disease identified. Isaiah Lowery MD Toe X-Ray 10/26/16 0000 Signed Impressions: Service Date/Time: Wednesday, October 26, 2016 12:44 - CONCLUSION: Negative for fracture or gouty erosion. Michael Corona MD FACR Head CT 10/25/16 2202 Signed Impressions: Service Date/Time: Tuesday, October 25, 2016 23:56 - CONCLUSION: No acute intracranial disease. Octaviano Andres MD PE at Discharge GENERAL: Well-nourished, well-developed middle aged female patient in [facility] SKIN: Flushed skin upper chest and neck. Warm and dry. No rash. HEENT: Normocephalic. Atraumatic. Pupils equal and round. No scleral icterus. No injection or drainage. Mucous membranes pink and moist. NECK: Supple. Trachea midline. CARDIOVASCULAR: Regular rate and rhythm. S1, S2 noted. No murmur appreciated. RESPIRATORY: No accessory muscle use. Clear to auscultation. Breath sounds equal bilaterally. GASTROINTESTINAL: Abdomen soft, non-tender, nondistended. Normoactive bowel sounds x4. MUSCULOSKELETAL: No obvious deformities. Extremities without clubbing, cyanosis , or edema. Right great toenail partially removed, bleeding. NEUROLOGICAL: Awake and alert. No obvious cranial nerve deficits. Motor grossly within normal limits. Moving all extremities spontaneously. Normal speech. PSYCHIATRIC: patient can answer questions but is slowing her response. Pt update on day of discharge Follow-up for encephalopathy and multiple medical conditions and the assessment and plan Patient has no complaints. Her nurse is at the bedside. Patient is not agitated but was yelling earlier. Patient stated that no one told her how to get help when needed. She stated that she understands how to use the call wharton now also does not need to you for help anymore. Per patient's no she has been behaving and she has not been agitated. She has no complaints. She denies any shortness of breathing, chest pain, pain. Patient feels like she is doing well. Her nurse at the bedside said no events. Nurse also feels that patient can be transferred to the [facility]. Hospital Course Metabolic encephalopathy -Most likely multifocal factorial due to Neuroleptic malignant syndrome and UTI. -CT scan of the head was negative. -EEG 10/27: Showing possible left temporal lobe epileptiform activity. Neuroleptic malignant syndrome -Neurologist and psychiatrist were I consulted. -CK was elevated. She was given IV fluids in which CK showed improvement and was trending down throughout the hospital course. -Patient was given 100 mg IV dantrolene yesterday with significant improvement in rigidity/stiffness -No medications at this time other than when necessary Ativan. Sepsis -During hospitalization patient met sepsis criteria source was a UTI. -Urine grew Escherichia coli which was pansensitive. She was initially put on cefepime. Upon her transfer to [facility] she was transitioned to Bactrim. UTI due to Escherichia coli -Initially treated with Rocephin and that was changed to cefepime. Cultures were sensitive to Bactrim so she was transitioned to that. Acute kidney insufficiency -Most likely due to dehydration and rhabdomyolysis due to neuroleptic malignant syndrome. -Improved with treatment. -The hospital course patient was making good urine output. -Avoid nephrotoxins. Hypophosphatemia -Electrolyte replacement per protocol Bipolar disorder with psychosis/agitation -Psychiatrist was consulted. -Home medication held. -Agitation resolved during hospital course. -Per psych and be transferred to psych med. Pt Condition on Discharge: Stable Discharge Disposition: Disc to Psych Care Fac Discharge Time: > 30 minutes Discharge Instructions DIET: Follow Instructions for: As Tolerated, No Restrictions Activities you can perform: Regular-No Restrictions Follow up Referrals: PCP Follow-up - 1 Week New Medications: Sulfamethoxazole-Trimethoprim (Bactrim DS) 800-160 Mg Tab 1 TAB PO BID Infection #6 Ref 0 TAB Continued Medications: Albuterol 8.5 GM Inh (Proair Hfa 8.5 GM Inh) 90 Mcg/Act Aer 2 PUFF INH Q4HR 108 mcg/actuation PRN SHORTNESS OF BREATH #1 Ref 0 INHALER Levothyroxine (Levothyroxine) 25 Mcg Tab 25 MCG PO DAILY Thyroid #30 Ref 0 TAB Levothyroxine (Levothyroxine) 200 Mcg Tab 200 MCG PO DAILY Thyroid #30 Ref 0 TAB Metformin (Metformin) 1,000 Mg Tab 1000 MG PO BIDPC With meals Blood Sugar Management #60 Ref 0 TAB Discontinued Medications: Baclofen (Baclofen) 20 Mg Tab 20 MG PO QID Muscle Spasm #120 Ref 2 TAB Chlorpromazine (Chlorpromazine) 200 Mg Tab 200 MG PO QID PRN NAUSEA OR VOMITING #120 Ref 1 TAB Clonazepam (Klonopin) 2 Mg Tab 2 MG PO QID #120 Ref 2 TAB Clonidine (Clonidine) 0.3 Mg Tab 0.3 MG PO QHS & Q4am Blood Pressure Management #[address] (Cymbalta DR) 30 Mg Capdr 30 MG PO DAILY #[address] Ref [address] (Duloxetine DR) 60 Mg Capdr 60 MG PO DAILY #30 Ref 2 CAP Exenatide Inj (Bydureon Inj) 2 Mg Vial 2 MG SQ Q7D Blood Sugar Management #4 Ref 0 INJECTION Hydroxyzine HCl (Hydroxyzine HCl) 50 Mg Tab 50 MG PO TID #90 Ref 0 TAB [place] Carbonate ER ([place] Carbonate ER) 450 Mg Tab 450 MG PO BID #60 Ref 2 TAB Lurasidone (Latuda) 80 Mg Tab 80 MG PO BID #60 Ref 2 TAB Ropinirole (Requip) 4 Mg Tab 4 MG PO HS #30 Ref 2 TAB Umeclidinium-Vilanterol Inh (Anoro Ellipta Inh) 62.5-25 Mcg/Act Aero 1 PUFF INH DAILY COPD #1 Ref 0 INHALER Alta Lawson MD Oct 29, 2016 12:14
[2016-10-29] MEDS ORDERED: BACT800T5 PO (12:16)
--- NOTE | 2016-10-29 14:15 | MB ---
cc: MARILIN FERGUSON DPM DATE OF CONSULTATION 10/27/16 TIME OF CONSULTATION 1600 Hours REASON FOR CONSULTATION Right toe injury. HISTORY OF PRESENT ILLNESS The patient is a 46-year-old female who was sedated at bedside seen with nursing staff. History gleaned from the chart. Pertinent podiatric history is right foot injury secondary to the patient while in restraints kicking the bed and injuring her right foot. PAST MEDICAL HISTORY Per his chart. ALLERGIES None reported. FAMILY HISTORY Noncontributory. SOCIAL HISTORY Per chart. MEDICATIONS 1. Baclofen 2. Duloxetine 3. Requip. 4. Cymbalta. 5. Clonidine 6. Latuda 7. [place] 8. Clonazepam 9. 10. Ellipta 11. Synthroid 12. Metformin 13. Vytorin 13. Hydroxyzine 14. Pro-Air ALLERGIES NKDA. PHYSICAL EXAMINATION DP and PT intact on the right foot. Protective sensation deferred. Muscle strength deferred. Right foot warm proximal to distal, no open lesions, no drainage. Right hallux with no nail plate. Nail bed is 100% granular, no erythema, no drainage. No acute sign of infection. ASSESSMENT/PLAN Right hallux nail trauma. Right foot x-rays plain. No fractures noted at the right hallux. At this point in time, there is no additional wound care nor recommendations needed to be followed for the right hallux. I recommended bleeding leaving open to air. Thank you for the kind consult. Please reconsult if there are any acute changes. Marilin Ferguson DPM SR/ /8:16 PM /2:12 PM
[2016-10-30] VITALS (7 sets, daily range): BP systolic 147–170; BP diastolic 50–94; PULSE 80–97; RESP 18–20; TEMP 98.3–99; O2SAT 98–100
[2016-10-30] MEDS: INSULIN ASPART SUPPLEMENTAL SCALE SQ SCH ×2 (03:57→08:00)
[2016-10-30] MEDS: LORazepam 2 MG/ML VIAL IV PUSH PRN ×2 (03:58→08:01)
[2016-10-30 06:07] LABS: CKMB 5.5 NG/ML (0.5-3.6)
[2016-10-30] MEDS: SODIUM CHLOR 0.9% 1000 ML INJ 1,000 ML IV SCH (07:37)
[2016-10-30] MEDS: SODIUM CHLORIDE 0.9% FLUSH 10 ML FLUSH IV FLUSH SCH (08:01)
[2016-10-30] MEDS ORDERED: SULFAMETHOXAZOLE-TRIMETHOPRIM DS 800-160 MG TAB PO SCH (09:15)
--- NOTE | 2016-10-30 10:37 | HHI.PR ---
Subjective Remarks Follow-up for altered mental status Patient is tolerating by mouth intake. She denied any pain or has any concern. No acute events overnight Her nurse was at the bedside and also stated that there were no concerns. Objective Vitals Vital Signs Date Time Temp Pulse Resp B/P Pulse Ox O2 Delivery O2 Flow Rate FiO2 10/30/16 06:00 95 10/30/16 04:00 97 10/30/16 04:00 99.0 97 20 157/94 98 10/30/16 02:00 85 10/30/16 00:00 80 10/30/16 00:00 99.0 95 20 170/55 99 10/29/16 22:00 103 10/29/16 20:00 103 10/29/16 20:00 100.0 101 26 167/91 96 10/29/16 18:00 103 10/29/16 16:00 99.1 84 26 156/77 96 10/29/16 16:00 84 10/29/16 14:00 102 10/29/16 12:00 92 10/29/16 12:00 100.0 92 24 143/77 98 I/O 10/29/16 10/29/16 10/29/16 10/30/16 10/30/16 10/30/16 07:00 15:00 23:00 07:00 15:00 23:00 Intake Total 1444 ml 1736 ml 1236 ml 1538 ml Output Total 500 ml 1275 ml 500 ml 1000 ml Balance 944 ml 461 ml 736 ml 538 ml Intake Oral 600 ml 480 ml 500 ml 600 ml IV Total 844 ml 1256 ml 736 ml 938 ml Output Urine Total 500 ml 1275 ml 500 ml 1000 ml Result Diagram: 10/29/16 0413 10/29/16 0413 Objective Remarks GENERAL: Well-nourished, well-developed middle aged female patient in NAD SKIN: Flushed skin upper chest and neck. Warm and dry. No rash. HEENT: Normocephalic. Atraumatic. Pupils equal and round. No scleral icterus. No injection or drainage. Mucous membranes pink and moist. NECK: Supple. Trachea midline. CARDIOVASCULAR: Regular rate and rhythm. S1, S2 noted. No murmur appreciated. RESPIRATORY: No accessory muscle use. Clear to auscultation. Breath sounds equal bilaterally. GASTROINTESTINAL: Abdomen soft, non-tender, nondistended. Normoactive bowel sounds x4. MUSCULOSKELETAL: No obvious deformities. Extremities without clubbing, cyanosis , or edema. Right great toenail partially removed, bleeding. NEUROLOGICAL: Awake and alert. No obvious cranial nerve deficits. Motor grossly within normal limits. Moving all extremities spontaneously. Normal speech. PSYCHIATRIC: patient can answer questions. She knows her name. She stated that she did not know the location. Procedures none Medications and IVs Current Medications Naloxone HCl (Narcan Inj) 2 mg ONCE ONCE IV Last administered on 10/26/16 00: 00; Start 10/25/16 at 22:15; Stop 10/25/16 at 22:16; Status DC Sodium Chloride 2 ml 2 ml UNSCH PRN IVF FLUSH AFTER USING IV ACCESS; Start at 22:15; Stop 10/26/16 at 02:30; Status DC Ceftriaxone Sodium 1000 mg/ Sodium Chloride 100 ml @ 200 mls/hr ONCE ONCE IV Last administered on 10/26/16 02:20; Start 10/26/16 at 01:30; Stop 10/26/16 at 01:59; Status DC Ceftriaxone Sodium 1000 mg/ Sodium Chloride 100 ml @ 200 mls/hr Q24H IV Last administered on 10/26/16 23:38; Start 10/26/16 at 23:00; Stop 10/27/16 at 10:39 ; Status DC Sodium Chloride (NS 1000 ml Inj) 1,000 ml @ 125 mls/hr Q8H IV Last administered on 10/30/16 07:37; Start 10/26/16 at 02:18; Stop 10/30/16 at 09:17 ; Status DC Sodium Chloride (NS Flush) 2 ml UNSCH PRN IV FLUSH FLUSH AFTER USING IV ACCESS Last administered on 10/29/16 19:57; Start 10/26/16 at 02:30 Sodium Chloride (NS Flush) 2 ml BID IV FLUSH Last administered on 10/30/16 08: 01; Start 10/26/16 at 09:00 Ondansetron HCl (Zofran Inj) 4 mg Q6H PRN IVP NAUSEA OR VOMITING; Start at 02:30 Bisacodyl (Dulcolax Supp) 10 mg DAILY PRN DE CONSTIPATION; Start 10/26/16 at 02 :30 Acetaminophen (Tylenol) 650 mg Q6H PRN PO FEVER/PAIN SCALE 1 TO 2; Start at 02:30 Dextrose (D50w (Vial) Inj) 25 ml UNSCH PRN IV PUSH HYPOGLYCEMIA-SEE COMMENTS; Start 10/26/16 at 04:15; Stop 10/27/16 at 10:47; Status DC Glucagon (Glucagon Inj) 1 mg UNSCH PRN OTHER HYPOGLYCEMIA-SEE COMMENTS; Start 10/26/16 at 04:15; Stop 10/27/16 at 10:47; Status DC Insulin Aspart (NovoLOG SUPPLEMENTAL SCALE) 1 ACHS SLIDING SCALE SQ Last administered on 10/26/16 11:28; Start 10/26/16 at 07:00; Stop 10/27/16 at 10:47 ; Status DC Haloperidol Lactate (Haldol Inj) 2 mg ONCE ONCE IM Last administered on 09:57; Start 10/26/16 at 09:30; Stop 10/27/16 at 08:25; Status DC Haloperidol Lactate (Haldol Inj) 2 mg ONCE ONCE IM Last administered on 11:20; Start 10/26/16 at 10:30; Stop 10/26/16 at 10:59; Status DC Haloperidol Lactate (Haldol Inj) 5 mg Q6H PRN IM agitation Last administered on 10/27/16 01:42; Start 10/26/16 at 14:00; Stop 10/27/16 at 10:46; Status DC Lorazepam (Ativan Inj) 2 mg ONCE ONCE IV PUSH Last administered on 10/26/16 13:30; Start 10/26/16 at 13:30; Stop 10/26/16 at 13:31; Status DC Lorazepam (Ativan Inj) 1 mg Q3H PRN IV PUSH MILD ANXIETY OR AGITATION Last administered on 10/30/16 08:01; Start 10/27/16 at 08:30 Lorazepam 2 mg 2 mg Q4H PRN IV PUSH MOD - SEVERE ANXIETY/AGITATION Last administered on 10/30/16 03:58; Start 10/27/16 at 08:30 Sodium Chloride 1,000 ml @ 999 mls/hr BOLUS ONCE IV Last administered on 10/27 12:23; Start 10/27/16 at 12:00; Stop 10/27/16 at 13:00; Status DC Sodium Chloride (NS 1000 ml Inj) 1,000 ml @ 999 mls/hr BOLUS ONCE IV Last administered on 10/27/16t 12:24; Start 10/27/16 at 12:00; Stop 10/27/16 at 13:00 ; Status DC Dantrolene Sodium 100 mg 100 mg ONCE ONCE IV ; Start 10/27/16 at 14:00; Stop at 14:01; Status Cancel Potassium Chloride 100 ml @ 50 mls/hr Q2H PRN IV For Potassium 2.8 - 3.2 mEq/L ; Start 10/27/16 at 10:45 Potassium Chloride 100 ml @ 50 mls/hr Q2H PRN IV For Potassium 2.8 - 3.2 mEq/L ; Start 10/27/16 at 10:45 Potassium Chloride 100 ml @ 25 mls/hr UNSCH PRN IV For Potassium 3.3 - 3.5 mEq /L; Start 10/27/16 at 10:45 Potassium Chloride 100 ml @ 50 mls/hr Q2H PRN IV For Potassium 3.3 - 3.5 mEq/L ; Start 10/27/16 at 10:45 Magnesium Sulfate/ Sodium Chloride (Magnesium Sulfate Inj/NS Inj) 100 ml @ 50 mls/hr UNSCH PRN IV For Magnesium 0.9 - 1.1 mg/dL; Start 10/27/16 at 10:45 Magnesium Oxide 800 mg 800 mg UNSCH PRN PO For Magnesium 1.2 - 1.6 mg/dL; Start 10/27/16 at 10:45 Magnesium Sulfate/ Sodium Chloride (Magnesium Sulfate Inj/NS Inj) 100 ml @ 50 mls/hr UNSCH PRN IV For Magnesium 1.2 - 1.6 mg/dL; Start 10/27/16 at 10:45 Potassium Phosphate 2000 mg 2,000 mg Q4H PRN PO For Phosphorus < 2.5 mg/dL; Start 10/27/16 at 10:45 Sodium Phosphate/ Sodium Chloride (Sodium Phosphate Inj/NS 250 ml Inj) 250 ml @ 42 mls/hr UNSCH PRN IV For Phosphorus < 2.5 mg/dL; Start 10/27/16 at 10:45 Potassium Phosphate 2000 mg 2,000 mg UNSCH PRN PO/TUBE SEE LABEL COMMENTS; Start 10/27/16 at 10:45 Potassium Phosphate 30 mmol/ Sodium Chloride 260 ml @ 42 mls/hr UNSCH PRN IV SEE LABEL COMMENTS; Start 10/27/16 at 10:45 Cefepime HCl/ Sodium Chloride (Maxipime Inj/NS Inj) 100 ml @ 200 mls/hr Q12H IV Last administered on 10/29/16 23:11; Start 10/27/16 at 12:00; Stop at 09:17; Status DC Insulin Aspart 1 1 Q4H SQ Last administered on 10/30/16 03:57; Start 10/27/16 at 12:00 Sodium Bicarbonate/ Sodium Chloride (Sodium Bicarbonate 8.4% Inj/1/2 NS 1000 ml Inj) 1,075 ml @ 50 mls/hr [id number] IV Last administered on 10/27/16 21:56; Start 10/27/16 at 15:00; Stop 10/28/16 at 11:34; Status DC Sodium Bicarbonate (Sodium Bicarbonate 8.4% Inj) 50 meq ONCE ONCE IV PUSH Last administered on 10/27/16 13:30; Start 10/27/16 at 13:30; Stop 10/27/16 at 13:31; Status DC Miscellaneous Information Patient in critical care unit? Ass... [id number] ; Start 10/27/16 at 17:45 Chlorhexidine Gluconate (Chlorhexidine 2% Cloth) 3 pack DAILY@04 TOPICAL Last administered on 10/29/16 20:15; Start 10/28/16 at 04:00; Stop 11/01/16 at 04:01 Chlorhexidine Gluconate 3 pack 3 pack UNSCH PRN TOPICAL HYGIENIC CARE; Start at 17:45; Stop 11/01/16 at 17:40 Dantrolene Sodium/ Syringe / Bag (Dantrium Inj/ Syringe/Bag) 300 ml @ 300 mls/ hr ONCE IV Last administered on 10/27/16 18:35; Start 10/27/16 at 18:15; Stop 10/27/16 at 21:00; Status DC Trimethoprim/ Sulfamethoxazole (Bactrim Ds 800-160 Mg) 1 tab Q12HR PO ; Start at 09:15 A/P Problem List: (1) ARF (acute renal failure) ICD Code: N17.9 Status: Acute (2) Neuroleptic malignant syndrome ICD Code: G21.0 Status: Acute (3) Encephalopathy ICD Code: G93.40 Status: Acute (4) UTI (urinary tract infection) ICD Code: N39.0 Status: Acute (5) Bipolar disorder, current episode mixed ICD Code: F31.60 Status: Acute (6) Bipolar disorder ICD Code: F31.9 Status: Acute (7) Sepsis ICD Code: A41.9 Status: Acute Assessment and Plan Metabolic encephalopathy -Most likely multifocal factorial due to Neuroleptic malignant syndrome and UTI. -CT scan of the head was negative. -EEG 10/27: Showing possible left temporal lobe epileptiform activity. The repeat EEG was normal. -Resolved. Neuroleptic malignant syndrome -Neurologist and psychiatrist were consulted. -CK was elevated. She was given IV fluids in which CK showed improvement and was trending down throughout the hospital course. -Patient was given 100 mg IV dantrolene with significant improvement in rigidity /stiffness -No medications at this time other than when necessary Ativan. -She is asymptomatic at the moment. Sepsis -During hospitalization patient met sepsis criteria source was a UTI. -Urine grew Escherichia coli which was pansensitive. She was initially put on cefepime and transitioned to Bactrim. UTI due to Escherichia coli -Initially treated with Rocephin and that was changed to cefepime. Cultures were sensitive to Bactrim so she was transitioned to that. Acute kidney insufficiency -Most likely due to dehydration and rhabdomyolysis due to neuroleptic malignant syndrome. -Improved with treatment. -The hospital course patient was making good urine output. -Avoid nephrotoxins. Hypophosphatemia -Electrolyte replacement per protocol Bipolar disorder with psychosis/agitation -Psychiatrist was consulted. -Home medication held. -Agitation resolved during hospital course. -Per psych and be transferred to psych med. Discharge Planning Patient is medically clear and stable to be discharged to inpatient psych. At the moment since there is no active medical issue I do not think she needs med psych. Problem Qualifiers (1) UTI (urinary tract infection): Qualified Code: N39.0 - Urinary tract infection without hematuria, site unspecified Alta Lawson MD Oct 30, 2016 10:37
[2016-10-30] MEDS ORDERED: LORazepam 2 MG/ML VIAL IM PRN ×2 (11:30)
[2016-10-30] MEDS ORDERED: MAGNESIUM HYDROXIDE SUSP 30 ML CUP PO PRN (11:30)
[2016-10-30] MEDS ORDERED: ALUMINUM/MAGNESIUM/SIMETH 30 ML CUP PO PRN (11:30)
[2016-10-30] MEDS ORDERED: LORazepam 1 MG TAB PO PRN (11:30)
[2016-10-30] MEDS ORDERED: ACETAMINOPHEN 325 MG TAB PO PRN (11:30)
[2016-10-30] MEDS ORDERED: LORazepam 0.5 MG TAB PO PRN (11:30)
[2016-11-23] MEDS ORDERED: DIVA250ER PO ×2 (14:03→14:13)
[2016-11-23] MEDS ORDERED: LITH300T PO ×2 (14:05→14:13)
[2016-11-23] MEDS ORDERED: CLON0.3T PO ×2 (14:10→14:13)
[2016-11-23] MEDS ORDERED: AMBI10TA PO (14:13)
[2016-11-23] MEDS ORDERED: LORA-474 PO (14:13)
[2017-01-15] MEDS ORDERED: LURA1TAB2 PO ×2 (13:08→13:14)
[2017-01-15] MEDS ORDERED: DIVA250ER PO (13:14)
[2017-01-15] MEDS ORDERED: LITH300T PO (13:14)
== END 2016-10-30 12:10 | DRG 91 ==
LOC: NEPC 21:50 → NEDA 10-26 01:53 → NEDH 10-26 02:41 → NEPGCP 10-26 08:11 → OBSVTOIN 10-27 15:20 → HIME 10-27 15:30
PROVIDERS: ADMIT Family Medicine; ATTEND Family Medicine
DX: G21.0 Malignant neuroleptic syndrome (principal); R65.20 Severe sepsis without septic shock; N17.9 Acute kidney failure, unspecified; E87.2 Acidosis; M62.82 Rhabdomyolysis; E83.39 Other disorders of phosphorus metabolism; A41.9 Sepsis, unspecified organism; N39.0 Urinary tract infection, site not specified; F05 Delirium due to known physiological condition; F31.60 Bipolar disorder, current episode mixed, unspecified; J98.11 Atelectasis; G93.41 Metabolic encephalopathy; E11.9 Type 2 diabetes mellitus without complications; J45.909 Unspecified asthma, uncomplicated; K21.9 Gastro-esophageal reflux disease without esophagitis; F17.210 Nicotine dependence, cigarettes, uncomplicated; Z78.1 Physical restraint status; B96.20 Unspecified Escherichia coli [E. coli] as the cause of diseases classified elsewhere; E86.0 Dehydration; F20.9 Schizophrenia, unspecified; S99.821A Other specified injuries of right foot, initial encounter; W22.09XA Striking against other stationary object, initial encounter; Y92.230 Patient room in hospital as the place of occurrence of the external cause; Z79.84 Long term (current) use of oral hypoglycemic drugs
CPT/HCPCS: 36600; 70450; 71010; 73660; 76937; 80053; 80178; 80307; 81001; 82140; 82550; 82552; 82805; 82948; 83605; 83735; 84100; 84132; 84443; 85025; 87040; 87077; 87086; 87186; 87641; 95819; 96374; G0378; G8987-GP; G8988-GP; J0692; J0696; J1630; J1815; J2060; J2310; J7030

== ENCOUNTER 2016-10-30 12:00 | Inpatient (IN) | payer MEDICARE, MEDICAID ==
[~2016-10-30 12:00] MED LIST changes: -BACL20TA PO; +BACT800T5 PO; -CHLO200T5 PO; -CLON0.3T PO; -CYMB30CA PO; -DULO1CAP3 PO; -EXENINJ SQ; -HYDR50TA94 PO; -KLON2TAB PO; +LEVO200T4 PO; +LEVO25TA4 PO; -LITH450T PO; -LURA80 PO; -REQU4TAB3 PO
[2016-10-30 12:34] VITALS: BP 147/94; PULSE 89; RESP 18; TEMP 98.2; O2SAT 95
[2016-10-30] MEDS ORDERED: ALUMINUM/MAGNESIUM/SIMETH 30 ML CUP PO PRN (13:45)
[2016-10-30] MEDS ORDERED: MAGNESIUM HYDROXIDE SUSP 30 ML CUP PO PRN (13:45)
[2016-10-30] MEDS: NICOTINE 21 MG/24 HR PATCH T-DERMAL SCH (14:00)
[2016-10-30] MEDS: LORazepam 2 MG/ML VIAL IM PRN (14:54)
[2016-10-30] MEDS: ACETAMINOPHEN 325 MG TAB PO PRN (14:54)
[2016-10-30] MEDS ORDERED: ALBUTEROL SULFATE 90 MCG/ACT HFA 8 GM INHALER INH PRN (15:45)
[2016-10-30] MEDS ORDERED: ALBUTEROL SULFATE 90 MCG/ACT HFA 18 GM INHALER INH PRN (16:59)
[2016-10-30] MEDS: metFORMIN HCL 500 MG TAB PO SCH (18:00)
[2016-10-30] MEDS: REMOVE OLD NICOTINE PATCH T-DERMAL SCH (20:40)
[2016-10-30] MEDS: SULFAMETHOXAZOLE-TRIMETHOPRIM DS 800-160 MG TAB PO SCH (21:00)
[2016-10-31] MEDS: LORazepam 1 MG TAB PO PRN ×2 (00:46→08:25)
[2016-10-31] MEDS: ACETAMINOPHEN 325 MG TAB PO PRN ×2 (02:04→03:12)
[2016-10-31] MEDS: LEVOTHYROXINE SODIUM 25 MCG TAB PO SCH (06:08)
[2016-10-31] MEDS: LEVOTHYROXINE SODIUM 200 MCG TAB PO SCH (06:08)
[2016-10-31 06:23] LABS: BICARBONATE 20.5 MEQ/L (21.0-32.0); POTASSIUM 3.1 MEQ/L (3.5-5.1)
[2016-10-31 06:25] LABS: HDL CHOLESTEROL 26.4 MG/DL (40.0-60.0)
[2016-10-31 06:32] VITALS: BP 125/68; PULSE 95; RESP 14; TEMP 97.4; O2SAT 92
[2016-10-31] MEDS: NICOTINE 21 MG/24 HR PATCH T-DERMAL SCH (08:19)
[2016-10-31] MEDS: metFORMIN HCL 500 MG TAB PO SCH ×2 (08:25→17:40)
[2016-10-31] MEDS: SULFAMETHOXAZOLE-TRIMETHOPRIM DS 800-160 MG TAB PO SCH ×2 (08:25→20:28)
[2016-10-31] MEDS ORDERED: POTASSIUM CHLORIDE 10 MEQ CONTROLLED RELEASE TAB PO ONE (13:45)
--- NOTE | 2016-10-31 14:10 | MH ---
cc: TOD LIU DATE OF ADMISSION: 10/30/2016 ADMISSION DIAGNOSES 1. Bipolar disorder, mixed, in partial remission, F31.77. 2. Recent history of neuroleptic malignant syndrome, G21.0. LEGAL STATUS: The patient is presently capacitated to consent for psychiatric admission and for medications. VOLUNTARY STATUS. HISTORY OF PRESENT ILLNESS Ms. Palma is a 46-year-old female with a reported history of schizophrenia and bipolar disorder who presented to the emergency department initially on October 27 with complaints from family of "not acting right." The patient was subsequently admitted to the medical floor and seen in consultation by Dr. You. She was also seen by neurology in consultation. It appears that there was significant concern for neuroleptic malignant syndrome and the patient even received some dantrolene at one point. All of her psychotropics were held. This episode apparently resolved and the patient has subsequently been transferred to the medical psychiatric unit. Reviewing the electronic medical record, I note that the patient follows on an outpatient basis with Dr. Mckinney with a diagnosis of bipolar mixed and the most recent office visit appears to have been on August 27 of this year. The patient was seen and examined with nurseKorina. Chart reviewed. The case was discussed with the nursing staff. On my examination today, the patient states that she came into the hospital because she was "looking for new representation. My mother felt I was over medicated." She did not realize that she was having such a severe reaction to her medications. Now that her psychotropic medications have been held, she says she feels "a little sketchy" but overall fairly well. Mood is generally euthymic and I can elicit no real depressive or hypomanic/manic symptoms at this point. She denies any suicidal or homicidal ideation. She denies any audiovisual hallucinations. She does complain of feeling a little bit anxious and having occasional paranoia but otherwise no delusional material. The remainder of the psychiatric ROS is negative. The patient is hoping to remain in the hospital to allow for eventual resumption of her neuroleptic medication. PAST PSYCHIATRIC HISTORY The patient reports prior diagnoses as noted above. Dr. Mckinney was treating the patient for bipolar mixed state. The patient denies any history of psychiatric admissions or suicide attempt, although I do see the patient was admitted very briefly under Dr. Samson in December of 2014. FAMILY HISTORY: The patient reports that her sister has some sort of mental illness history. CHEMICAL DEPENDENCY HISTORY: The patient denies any abuse of drugs or alcohol. SOCIAL HISTORY: The patient reports that she lives with her son and mother. She has a 25 year-old daughter as well. She is high school educated. She is disabled. She was 11 years ago. She denies any or legal history. Denies any access to guns or firearms. Denies any orthodoxy or spiritual beliefs. PAST MEDICAL HISTORY See electronic medical record. Recently includes NMS and UTI for which the patient is presently on Bactrim, also hypothyroidism. REVIEW OF SYSTEMS No reported headache, vision or hearing changes, chest pain, shortness of breath, bowel or bladder issues. No other physical complaints. PHYSICAL EXAMINATION Physical examination was completed by hospitalist team prior to transfer to the medical psychiatric unit. On my examination today, the patient appears to be in no acute physical distress. No signs of stiffness or tremor. No dystonias or dyskinesias noted. No signs of ongoing NMS. No other motoric abnormalities noted. Steady gait and station. Vital signs: Reviewed: Temperature is 97.4, pulse 95, respirations 14, blood pressure 125/68 and the patient's O2 saturation is 92% on room air. LABORATORY DATA: Reviewed. BMP is significant for mild hypokalemia with a K of 3.1. GFR is slightly reduced at 79. Reviewing records from the medical hospitalization, the patient had a mild leukocytosis of 12. LFTs were fairly unremarkable except for mildly elevated AST at 90. TSH was within normal limits, beta-hCG was negative. Toxicology was negative on presentation here and lithium level was slightly elevated at 1.4. MENTAL STATUS EXAMINATION: The patient is in hospital gown. She is fairly well groomed and maintaining basic hygiene. She is awake, alert, oriented x3. No abnormal motor movements noted. No signs of delirium. Speech is within normal limits for rate, tone and volume. There is a speech impediment present. Language and fund of knowledge are perhaps slightly reduced, but this is unclear. Mood is fair and affect is somewhat childlike. Thought process linear. No loosening of associations. Possibly some very mild paranoia but no other evident delusions. Denies AVH, audiovisual hallucinations. Denies suicidal or homicidal ideation. Insight and judgment are fair. ASSESSMENT/PLAN This a 46-year-old female with psychiatric history as detailed above who presently is voluntarily psychiatrically admitted to the medical psychiatric unit after having been hospitalized with complication of possible NMS. The patient is desirous to resume her psychotropics but presently has minimal psychiatric symptomatology. It is recommended to wait at least a period of 2 weeks following complete resolution of NMS before rechallenging with antipsychotics. It is possible we might be able to resume her lithium somewhat sooner, although she does have some degree of mild renal impairment still, and so I think it is best to hold off for now. Consequently, I think we will need to monitor the patient on the inpatient psychiatric unit at least several more days before resuming any of her regular psychotropics. However, she appears to be doing well presently, and I wonder if she might be able to make due with less medication. The patient requires psychiatric admission because of complicating conditions, namely the recent NMS that will necessitate a significant period of abstinence from medications before medication retrial can be considered. Admit inpatient. Voluntary status. Consult to the hospitalist. I will go ahead and replete the patient's potassium and recheck BMP and magnesium in the morning. Hold off on scheduled psychotropics for now. Ativan as needed for anxiety. I will continue with Bactrim for UTI and the synthroid. Vitals every shift as well as the patient's metformin. Counselor to see. Disposition planning. Estimated length of stay: 2-3 weeks given the necessity to wait before resuming antipsychotic medications. Tod Liu DC/BRIANNE /1:27 PM /1:53 PM TERRY
[2016-10-31] MEDS ORDERED: POTASSIUM CHLORIDE 20 MEQ CONTROLLED RELEASE TAB PO ONE (14:45)
[2016-10-31] MEDS ORDERED: DEXTROSE 50% IN WATER 50 ML VIAL(D50) IV PUSH PRN (15:15)
[2016-10-31] MEDS ORDERED: GLUCAGON 1 MG/ML VIAL OTHER PRN (15:15)
--- NOTE | 2016-10-31 15:32 | PD.CONS ---
HPI Service [facility] Consult Requested By Psychiatry team Reason for Consult Assistance in medical management Primary Care Physician Unknown Diagnoses: History of Present Illness Patient is a 46-year-old female with primary medical history of anxiety, depression, bipolar disorder, schizophrenia, DM 2 who came in to the hospital via EMS secondary to increased confusion, not acting right, questionable suicidal ideation. As per records, patient was nonverbal and unable to provide history during the time of admission. She was admitted for acute encephalopathy , delirium, urinary tract infection. During the course of her hospitalization patient had severe agitation when she has needed vest and 4-point Restraints. She was seen by neurologist for possible neuroleptic malignant syndrome, she was given IV Dantrolene, with significant improvement in rigidity and stiffness. CT of the head was done with no acute intracranial disease. EEG was done negative for seizures. Patient was also treated with sepsis, urinary tract infection given multiple antibiotics and now switched to Bactrim by mouth. She is now admitted to medical psych unit for further evaluation. Consulted for medical management. Patient seen today. She states that she is doing well. Answers questions correctly, but unable to provide information and how she got into the hospital. Notable slow thought process and slow speech response, flat affect. She denies pain or discomfort, dysuria, abdominal cramping. Denies nausea, vomiting , diarrhea, fevers, chills. Denies any shortness of breath and dyspnea. Denies chest pain, palpitations, headaches, dizziness. Review of Systems ROS Limitations: Poor Historian Except as stated in HPI: all other systems reviewed are Neg Past Family Social History Allergies: Coded Allergies: No Known Allergies (Verified , 08/27/16) Past Medical History Anxiety, Depression, Bipolar Disorder, Schizophrenia and DM Past Surgical History Back Surgery Reported Medications Sulfamethoxazole-Trimethoprim (Bactrim DS) 800-160 Mg Tab 1 TAB PO BID Infection #6 Ref 0 TAB Continued Medications: Albuterol 8.5 GM Inh (Proair Hfa 8.5 GM Inh) 90 Mcg/Act Aer 2 PUFF INH Q4HR 108 mcg/actuation PRN SHORTNESS OF BREATH #1 Ref 0 INHALER Levothyroxine (Levothyroxine) 25 Mcg Tab 25 MCG PO DAILY Thyroid #30 Ref 0 TAB Levothyroxine (Levothyroxine) 200 Mcg Tab 200 MCG PO DAILY Thyroid #30 Ref 0 TAB Metformin (Metformin) 1,000 Mg Tab 1000 MG PO BIDPC With meals Blood Sugar Management #60 Ref 0 TAB Discontinued Medications: Baclofen (Baclofen) 20 Mg Tab 20 MG PO QID Muscle Spasm #120 Ref 2 TAB Chlorpromazine (Chlorpromazine) 200 Mg Tab 200 MG PO QID PRN NAUSEA OR VOMITING #120 Ref 1 TAB Clonazepam (Klonopin) 2 Mg Tab 2 MG PO QID #120 Ref 2 TAB Clonidine (Clonidine) 0.3 Mg Tab 0.3 MG PO QHS & Q4am Blood Pressure Management #[address] (Cymbalta DR) 30 Mg Capdr 30 MG PO DAILY #30 Ref [address] (Duloxetine DR) 60 Mg Capdr 60 MG PO DAILY #30 Ref 2 CAP Exenatide Inj (Bydureon Inj) 2 Mg Vial 2 MG SQ Q7D Blood Sugar Management #4 Ref 0 INJECTION Hydroxyzine HCl (Hydroxyzine HCl) 50 Mg Tab 50 MG PO TID #90 Ref 0 TAB [place] Carbonate ER ([place] Carbonate ER) 450 Mg Tab 450 MG PO BID #60 Ref 2 TAB Lurasidone (Latuda) 80 Mg Tab 80 MG PO BID #60 Ref 2 TAB Ropinirole (Requip) 4 Mg Tab 4 MG PO HS #30 Ref 2 TAB Umeclidinium-Vilanterol Inh (Anoro Ellipta Inh) 62.5-25 Mcg/Act Aero 1 PUFF INH DAILY COPD #1 Ref 0 INHALER Active Ordered Medications Current Medications Medications (Trade) Dose Ordered Sig/Jason Route Start Time Stop Time Status Last Admin (Ativan) 1 mg Q6H PRN PO 10/30/16 13:45 10/31/16 08:25 (Ativan Inj) 1 mg Q6H PRN IM 10/30/16 13:45 10/30/16 14:54 (Tylenol) 650 mg Q4H PRN PO 10/30/16 13:45 10/31/16 03:12 (Milk Of Magnesia Liq) 30 ml DAILY PRN PO 10/30/16 13:45 (Mag-Al Plus Susp Liq) 30 ml Q6H PRN PO 10/30/16 13:45 (Habitrol 21 Mg Patch.24 Hr) 1 patch DAILY T-DERMAL 10/30/16 14:00 Miscellaneous Information 1 HS T-DERMAL 10/30/16 21:00 (Synthroid) 25 mcg DAILY@0600 PO 10/31/16 06:00 10/31/16 06:08 (Synthroid) 200 mcg DAILY@0600 PO 10/31/16 06:00 10/31/16 06:08 (Glucophage) 1,000 mg BIDPC PO 10/30/16 18:00 10/31/16 08:25 (Bactrim Ds 800-160 Mg) 1 tab BID PO 10/30/16 21:00 11/04/16 20:59 10/31/16 08:25 (Ventolin Hfa Inh) 2 puff Q4H PRN INH 10/30/16 16:59 (D50w (Vial) Inj) 25 ml UNSCH PRN IV PUSH 10/31/16 15:15 (Glucagon Inj) 1 mg UNSCH PRN OTHER 10/31/16 15:15 Family History No family h/o DM or CAD Social History Per review of records, negative for alcohol, positive for tobacco, history of Marijuana Physical Exam Vital Signs Vital Signs Date Time Temp Pulse Resp B/P Pulse Ox O2 Delivery O2 Flow Rate FiO2 10/31/16 06:32 97.4 95 14 125/68 92 Physical Exam GENERAL: This is an obese, middle-aged white female, no acute distress, flat affect SKIN: Mild edema right second and third toes, no pain to palpation. HEAD: Atraumatic. Normocephalic. No temporal or scalp tenderness. EYES: Pupils equal round and reactive. No scleral icterus. No injection or drainage. ENT: Nose without bleeding. Throat without erythema. Uvula midline. Airway patent. NECK: Trachea midline. No JVD or lymphadenopathy. Supple, nontender, no meningeal signs. CARDIOVASCULAR: Regular rate and rhythm without murmurs, gallops, or rubs. RESPIRATORY: Clear to auscultation. Breath sounds equal bilaterally. No wheezes , rales, or rhonchi. GASTROINTESTINAL: Abdomen soft, non-tender, nondistended. Bowel sounds hypoactive 4. No CVA tenderness. MUSCULOSKELETAL: Extremities without clubbing, cyanosis, trace bilateral lower extremity edema. No joint tenderness, effusion, or edema noted. NEUROLOGICAL: Awake and alert. Flat affect. Able to follow commands. Slow thought process. Slow speech response. Motor and sensory grossly within normal limits. Laboratory Laboratory Tests Test 10/31/16 05:33 Sodium Level 141 Potassium Level 3.1 Chloride Level 112 Carbon Dioxide Level 20.5 Anion Gap 9 Blood Urea Nitrogen 6 Creatinine 0.79 Estimat Glomerular Filtration 79 Rate Random Glucose 185 Calcium Level 7.9 Triglycerides Level 244 Cholesterol Level 162 LDL Cholesterol 87 HDL Cholesterol 26.4 Cholesterol/HDL Ratio 6.13 Result Diagram: 10/31/16 0533 Assessment and Plan Assessment and Plan Patient is a 46-year-old female with primary medical history of anxiety, depression, bipolar disorder, schizophrenia, DM 2 who came in to the hospital via EMS secondary to increased confusion, not acting right, questionable suicidal ideation. As per records, patient was nonverbal and unable to provide history during the time of admission. She was admitted for acute encephalopathy , delirium, urinary tract infection. During the course of her hospitalization patient had severe agitation when she has needed vest and 4-point Restraints. She was seen by neurologist for possible neuroleptic malignant syndrome, she was given IV Dantrolene, with significant improvement in rigidity and stiffness. CT of the head was done with no acute intracranial disease. EEG was done negative for seizures. Patient was also treated with sepsis, urinary tract infection given multiple antibiotics and now switched to Bactrim by mouth. She is now admitted to medical psych unit for further evaluation. Consulted for medical management. Schizophrenia, psychosis, bipolar - angina by psychiatry team Metabolic encephalopathy -Most likely multifocal factorial due to Neuroleptic malignant syndrome and UTI. -CT scan of the head was negative. -EEG 10/27: Showing possible left temporal lobe epileptiform activity. The repeat EEG was normal. -Resolved. Possible Neuroleptic malignant syndrome -Neurologist and psychiatrist were consulted. -Patient was given 100 mg IV dantrolene with significant improvement in rigidity/stiffness in the inpatient setting. -No medications at this time other than when necessary Ativan. -She is asymptomatic at the moment. UTI due to Escherichia coli - Initially treated with Rocephin and that was changed to cefepime. - Now on Bactrim, to complete end date 11/03/69 DM 2 - Metformin 1000 mg twice a day - Insulin sliding scale, monitor BG before meals/at bedtime - Check hemoglobin A1c - Monitor for hypoglycemia DVT prop ambulatory Written by Tarik Mistry, acting as scribe for Dr. Garrett on 10/31/16 at 16:46. All or portions of this note were transcribed by scribe Iszenn Briganti. I, Dr. Tripp Garrett personally performed the history, physical exam, and medical decision making; and confirmed the accuracy of the information in the transcribed note. Authenticated by Dr. Tripp Garrett on 10/31/16 at 19:12. Code Status Full code Discussed Condition With Patient, nursing Tarik Owen Oct 31, 2016 15:32 Tripp Garrett MD Oct 31, 2016 19:12
[2016-10-31] MEDS: INSULIN ASPART SUPPLEMENTAL SCALE SQ SCH ×2 (15:54→20:32)
[2016-10-31 17:48] VITALS: BP 158/88; PULSE 95; RESP 14; TEMP 98.1; O2SAT 97
[2016-10-31] MEDS: REMOVE OLD NICOTINE PATCH T-DERMAL SCH (20:36)
[2016-11-01] MEDS: LORazepam 1 MG TAB PO PRN ×2 (00:20→09:12)
[2016-11-01] MEDS: LEVOTHYROXINE SODIUM 200 MCG TAB PO SCH ×2 (04:57→05:44)
[2016-11-01] MEDS: LEVOTHYROXINE SODIUM 25 MCG TAB PO SCH ×2 (04:58→05:43)
[2016-11-01 05:39] VITALS: BP 118/63; PULSE 74; RESP 14; TEMP 96.9; O2SAT 96
[2016-11-01 06:44] LABS: ANION GAP 7 MEQ/L (5-15); BICARBONATE 25.1 MEQ/L (21.0-32.0); BLOOD UREA NITROGEN 6 MG/DL (7-18); CHLORIDE 111 MEQ/L (98-107); GLOMERULAR FILTRATION RATE 75 ML/MIN (>89); MAGNESIUM 1.8 MG/DL (1.5-2.5); POTASSIUM 3.1 MEQ/L (3.5-5.1); SODIUM (NA) 143 MEQ/L (136-145)
[2016-11-01] MEDS: INSULIN ASPART SUPPLEMENTAL SCALE SQ SCH ×4 (07:00→20:04)
[2016-11-01] MEDS ORDERED: POTASSIUM CHLOR 20 MEQ PREMIX 100 ML IV ONE (09:00)
[2016-11-01] MEDS ORDERED: MAGNESIUM SULFATE 1 GM PREMIX 100 ML IV ONE (09:00)
[2016-11-01] MEDS ORDERED: POTASSIUM CHLORIDE 20 MEQ CONTROLLED RELEASE TAB PO ONE (09:00)
[2016-11-01] MEDS: NICOTINE 21 MG/24 HR PATCH T-DERMAL SCH (09:00)
[2016-11-01] MEDS: metFORMIN HCL 500 MG TAB PO SCH ×2 (09:11→17:03)
[2016-11-01] MEDS: SULFAMETHOXAZOLE-TRIMETHOPRIM DS 800-160 MG TAB PO SCH ×2 (09:12→20:03)
[2016-11-01] MEDS ORDERED: POTASSIUM CHLORIDE 25 MEQ EFFERVESCENT TAB PO ONE (10:00)
[2016-11-01 11:07] LABS: HEMOGLOBIN A1b 2.3 %; HEMOGLOBIN LA1C 2.2 %; HEMOGLOBIN P3 3.9 %
--- NOTE | 2016-11-01 11:58 | HHI.PR ---
Subjective Remarks Follow-up visit DM 2, HLD, bipolar disorder. Shunt seen today. States she is doing well. Discussed lab results with her. Discussed recommendation for use of statin. Patient agrees with plan. Denies pain and discomfort. Denies SOB/ dyspnea. Denies chest pain, palpitations, headaches, dizziness. Denies fevers, chills, n/v/d. Objective Vitals Vital Signs Date Time Temp Pulse Resp B/P Pulse Ox O2 Delivery O2 Flow Rate FiO2 11/01/16 05:39 96.9 74 14 118/63 96 10/31/16 17:48 98.1 95 14 158/88 97 I/O 10/31/16 10/31/16 10/31/16 11/01/16 11/01/16 11/01/16 07:00 15:00 23:00 07:00 15:00 23:00 Intake Total 240 ml 1440 ml 960 ml 240 ml Output Total 240 ml Balance 240 ml 1440 ml 720 ml 240 ml Intake Oral 240 ml 1440 ml 960 ml 240 ml Output Urine Total 240 ml # Voids 3 4 # Bowel Movements 0 0 Result Diagram: 11/01/16 0550 Objective Remarks GENERAL: This is an obese, middle-aged white female, no acute distress, flat affect SKIN: Mild edema right second and third toes, no pain to palpation. HEAD: Atraumatic. Normocephalic. No temporal or scalp tenderness. EYES: Pupils equal round and reactive. No scleral icterus. No injection or drainage. ENT: Nose without bleeding. Throat without erythema. Uvula midline. Airway patent. NECK: Trachea midline. No JVD or lymphadenopathy. Supple, nontender, no meningeal signs. CARDIOVASCULAR: Regular rate and rhythm without murmurs, gallops, or rubs. RESPIRATORY: Clear to auscultation. Breath sounds equal bilaterally. No wheezes , rales, or rhonchi. GASTROINTESTINAL: Abdomen soft, non-tender, nondistended. Bowel sounds hypoactive 4. No CVA tenderness. MUSCULOSKELETAL: Extremities without clubbing, cyanosis, trace bilateral lower extremity edema. No joint tenderness, effusion, or edema noted. NEUROLOGICAL: Awake and alert. Flat affect. Able to follow commands. Slow thought process. Slow speech response. Motor and sensory grossly within normal limits. A/P Problem List: (1) Bipolar disorder, current episode mixed ICD Code: F31.60 Status: Acute (2) Neuroleptic malignant syndrome ICD Code: G21.0 Status: Acute (3) DM (diabetes mellitus) ICD Code: E11.9 Status: Chronic (4) HLD (hyperlipidemia) ICD Code: E78.5 Status: Acute Assessment and Plan Patient is a 46-year-old female with primary medical history of anxiety, depression, bipolar disorder, schizophrenia, DM 2 who came in to the hospital via EMS secondary to increased confusion, not acting right, questionable suicidal ideation. As per records, patient was nonverbal and unable to provide history during the time of admission. She was admitted for acute encephalopathy , delirium, urinary tract infection. During the course of her hospitalization patient had severe agitation when she has needed vest and 4-point Restraints. She was seen by neurologist for possible neuroleptic malignant syndrome, she was given IV Dantrolene, with significant improvement in rigidity and stiffness. CT of the head was done with no acute intracranial disease. EEG was done negative for seizures. Patient was also treated with sepsis, urinary tract infection given multiple antibiotics and now switched to Bactrim by mouth. She is now admitted to medical psych unit for further evaluation. Consulted for medical management. Schizophrenia, psychosis, bipolar - angina by psychiatry team Metabolic encephalopathy -Most likely multifocal factorial due to Neuroleptic malignant syndrome and UTI. -CT scan of the head was negative. -EEG 10/27: Showing possible left temporal lobe epileptiform activity. The repeat EEG was normal. -Resolved. Possible Neuroleptic malignant syndrome -Neurologist and psychiatrist were consulted. -Patient was given 100 mg IV dantrolene with significant improvement in rigidity/stiffness in the inpatient setting. -No medications at this time other than when necessary Ativan. -She is asymptomatic at the moment. UTI due to Escherichia coli - Initially treated with Rocephin and that was changed to cefepime. - Now on Bactrim, to complete end date 11/03/69 DM 2 - Metformin 1000 mg twice a day - Insulin sliding scale, monitor BG before meals/at bedtime - Check hemoglobin A1c - Monitor for hypoglycemia HLD - ASCVD 10 year risk 3.2%, recommended for moderate intensity statin - Discussed with patient recommendation for statin use. Discuss risks and benefits with patient. In agreement with plan. - Lipitor 20 mg daily Hypokalemia - Potassium replacement - Start potassium 10 MEQ daily - Check magnesium level. Replacement provided. Refused IV magnesium. Will order mag ox twice a day 2 days DVT prop ambulatory Discussed with patient, nursing Written by Tarik Mistry, acting as scribe for Dr. Garrett on 11/01/16 at 11:58. All or portions of this note were transcribed by scribe Tarik Mistry. I, Dr. Tripp Garrett personally performed the history, physical exam, and medical decision making; and confirmed the accuracy of the information in the transcribed note. Authenticated by Dr. Tripp Garrett on 11/01/16 at 14:54. Tarik Owen Nov 01, 2016 11:58 Tripp Garrett MD Nov 01, 2016 14:54
[2016-11-01] MEDS: MAGNESIUM OXIDE 400 MG TAB PO SCH ×2 (13:00→20:03)
--- NOTE | 2016-11-01 13:54 | HHI.PYPN ---
Subjective Remarks Patient seen and examined. Chart reviewed. Case discussed with nursing staff. No behavioral problems overnight. On my examination today, patient denies SI , HI or AVH. She is somewhat discharge focused. Wants to restart her lithium. No mood instability at this time. No other issues noted. Review of Systems Except as stated in HPI: all other systems reviewed are Neg Objective Alert: Yes [place]: Person, Place, Date, Situation Mood: Calm Affect: Blunted Memory Intact: Comment (not formally assessed) Hallucinations: Other (denies AVH) Delusions: No Delusion Type: Other (no delusions) Suicidal: Ideation (denies SI) Homicidal: Ideation (denies HI) Insight/Judgement Fair Remarks No motor abnormalities noted. No signs of any ongoing NMS. Labs Test 11/01/16 05:50 Sodium Level 143 MEQ/L Potassium Level 3.1 MEQ/L Chloride Level 111 MEQ/L Carbon Dioxide Level 25.1 MEQ/L Anion Gap 7 MEQ/L Blood Urea Nitrogen 6 MG/DL Creatinine 0.82 MG/DL Estimat Glomerular Filtration 75 ML/MIN Rate Random Glucose 142 MG/DL Hemoglobin A1c 6.1 % Calcium Level 7.7 MG/DL Magnesium Level 1.8 MG/DL Labs reviewed. Minor interval decrement in GFR. Vitals/IOs Vital Signs Date Time Temp Pulse Resp B/P Pulse Ox O2 Delivery O2 Flow Rate FiO2 11/01/16 05:39 96.9 74 14 118/63 96 Intake and Output 10/31/16 10/31/16 11/01/16 08:00 16:00 00:00 Intake Total 240 ml 1440 ml 240 ml Output Total 240 ml Balance 240 ml 1440 ml 0 ml Assessment & Plan Problem List: (1) Bipolar 1 disorder, mixed, partial remission ICD Code: F31.77 Assessment & Plan Patient wants to resume lithium but mild interval worsening in patient's GFR. I will defer to Dr. You whether he wants to restart the lithium or select a different agent. Antipsychotics remain on hold given concern for recent NMS. No signs of psychiatric destabilization at this time. Hospitalist consult input appreciated. Continue to monitor on the unit. Continue other medications and care as ordered. Justification for Cont. Inpt. Risk for decompensation off medications necessitated by complicating conditions. Discharge Planning Per Dipak Cool MD Nov 01, 2016 13:54
[2016-11-01] MEDS ORDERED: ZOLPIDEM TARTRATE 5 MG TAB PO PRN (14:00)
[2016-11-01 16:00] VITALS: BP 140/78; PULSE 88; RESP 18; TEMP 98.2; O2SAT 98
[2016-11-01] MEDS: REMOVE OLD NICOTINE PATCH T-DERMAL SCH (19:56)
[2016-11-02] MEDS: LORazepam 1 MG TAB PO PRN ×2 (00:52→12:30)
[2016-11-02 05:33] VITALS: BP 131/73; PULSE 97; RESP 18; TEMP 97.9; O2SAT 98
[2016-11-02] MEDS: INSULIN ASPART SUPPLEMENTAL SCALE SQ SCH ×4 (05:53→21:00)
[2016-11-02] MEDS: LEVOTHYROXINE SODIUM 200 MCG TAB PO SCH (05:53)
[2016-11-02] MEDS: LEVOTHYROXINE SODIUM 25 MCG TAB PO SCH (05:53)
[2016-11-02] MEDS: metFORMIN HCL 500 MG TAB PO SCH ×2 (08:37→18:00)
[2016-11-02] MEDS: NICOTINE 21 MG/24 HR PATCH T-DERMAL SCH (08:37)
[2016-11-02] MEDS: MAGNESIUM OXIDE 400 MG TAB PO SCH ×2 (08:37→21:55)
[2016-11-02] MEDS: SULFAMETHOXAZOLE-TRIMETHOPRIM DS 800-160 MG TAB PO SCH ×2 (08:37→21:55)
[2016-11-02 09:34] LABS: BICARBONATE 20.4 MEQ/L (21.0-32.0); POTASSIUM 3.8 MEQ/L (3.5-5.1)
[2016-11-02] MEDS: LITHIUM CARBONATE 300 MG TAB PO SCH ×2 (10:00→21:55)
[2016-11-02 10:32] LABS: FREE T3 1.41 PG/ML (2.18-3.98); FREE T4 1.14 NG/DL (0.76-1.46)
--- NOTE | 2016-11-02 11:37 | HHI.PYPN ---
Subjective Remarks Patient seen today for psychiatric reevaluation along with nurse in charge Ye and JAJA [place], patient was in her room, calm, cooperative and pleasant. However , a little bit agitated and irritable, requesting to be discharged "because I have many things to do a home", patient has not been taking any psychotropics due to her recent NMS episode. She does not seems to be psychotic at this moment, but she has been described irritable, and not sleeping at night in the last 2 days which may be very concerning. She denies suicidal or homicidal ideation, she denies visual and auditory hallucinations. She is fully oriented 3, no gross cognitive impairment observed, no agitation, no aggressive behavior , no paranoia, no delusions, no symptomatology of NMS noted, Review of Systems Other No somatic complaints Objective Alert: Yes [place]: Person, Place, Date, Situation Mood: Other (irritable) Affect: Blunted Memory Intact: Immediate, Recent, Remote Hallucinations: Other (denies AVH) Delusions: No Delusion Type: Other (no delusions) Suicidal: Ideation (denies SI) Homicidal: Ideation (denies HI) Insight/Judgement Fair Labs Test 11/02/16 08:10 Sodium Level 141 MEQ/L Potassium Level 3.8 MEQ/L Chloride Level 109 MEQ/L Carbon Dioxide Level 20.4 MEQ/L Anion Gap 12 MEQ/L Blood Urea Nitrogen 8 MG/DL Creatinine 0.78 MG/DL Estimat Glomerular Filtration 80 ML/MIN Rate Random Glucose 154 MG/DL Calcium Level 8.5 MG/DL Free Thyroxine 1.14 NG/DL Free Triiodothyronine (T3) 1.41 PG/ML pg/dL Thyroid Stimulating Hormone 16.700 uIU/ML 3rd Gen Vitals/IOs Vital Signs Date Time Temp Pulse Resp B/P Pulse Ox O2 Delivery O2 Flow Rate FiO2 11/02/16 05:33 97.9 97 18 131/73 98 Intake and Output 11/01/16 11/01/16 11/02/16 08:00 16:00 00:00 Intake Total 720 ml 480 ml 960 ml Balance 720 ml 480 ml 960 ml Assessment & Plan Problem List: (1) Bipolar 1 disorder, mixed, partial remission Assessment & Plan: This patient has an extensive history of bipolar disorder, with multiple hospitalizations, increased potential of psychosis and savanah. Due to her recent episode of NMS psychotropics were completely discontinued. She was on high doses of Thorazine, Latuda, Cymbalta and lithium. It is highly recommended that the patient doesn't take any antidopaminergic drug for at least 2 weeks, but patient needs to be in close monitoring cessation of psychosis/savanah decompensation. Since patient is irritable and has been insomniac in the last 2 days will start lithium 300 mg twice a day and we will increase Ambien to 10 mg at bedtime when necessary insomnia. ICD Code: F31.77 Assessment & Plan Estimated LOS: days Justification for Cont. Inpt. Recent episode of NMS, no psychotropics at this moment, patient has a increased risk of psychiatric decompensation and needs to be in close monitoring of psychosis and savanah. Dwayne You MD Nov 02, 2016 11:37
--- NOTE | 2016-11-02 12:41 | HHI.PR ---
Subjective Remarks Follow-up visit DM 2, HLD, bipolar disorder. Patient seen today. States she is doing well. States she just started lithium today. Discussed with patient need to follow up with PCP once discharged. Needs to repeat BMP to make sure that potassium and magnesium levels are within normal. Agrees with plan. Reports times to diarrhea today. Patient was just started on mag ox. Denies pain and discomfort. Denies SOB/ dyspnea. Denies chest pain, palpitations, headaches, dizziness. Denies fevers, chills, n/v. Objective Vitals Vital Signs Date Time Temp Pulse Resp B/P Pulse Ox O2 Delivery O2 Flow Rate FiO2 11/02/16 05:33 97.9 97 18 131/73 98 11/01/16 16:00 98.2 88 18 140/78 98 I/O 11/01/16 11/01/16 11/01/16 11/02/16 11/02/16 11/02/16 07:00 15:00 23:00 07:00 15:00 23:00 Intake Total 960 ml 480 ml 960 ml 240 ml 360 ml Output Total 240 ml Balance 720 ml 480 ml 960 ml 240 ml 360 ml Intake Oral 960 ml 480 ml 960 ml 240 ml 360 ml Output Urine Total 240 ml # Voids 4 4 1 # Bowel Movements 0 2 Result Diagram: 11/02/16 0810 Objective Remarks GENERAL: This is an obese, middle-aged white female, no acute distress, flat affect SKIN: Mild edema right second and third toes, no pain to palpation. HEAD: Atraumatic. Normocephalic. No temporal or scalp tenderness. EYES: Pupils equal round and reactive. No scleral icterus. No injection or drainage. ENT: Nose without bleeding. Throat without erythema. Uvula midline. Airway patent. NECK: Trachea midline. No JVD or lymphadenopathy. Supple, nontender, no meningeal signs. CARDIOVASCULAR: Regular rate and rhythm without murmurs, gallops, or rubs. RESPIRATORY: Clear to auscultation. Breath sounds equal bilaterally. No wheezes , rales, or rhonchi. GASTROINTESTINAL: Abdomen soft, non-tender, nondistended. Bowel sounds hypoactive 4. No CVA tenderness. MUSCULOSKELETAL: Extremities without clubbing, cyanosis, trace bilateral lower extremity edema. No joint tenderness, effusion, or edema noted. NEUROLOGICAL: Awake and alert. Flat affect. Able to follow commands. Slow thought process. Slow speech response. Motor and sensory grossly within normal limits. A/P Problem List: (1) Bipolar disorder, current episode mixed ICD Code: F31.60 Status: Acute (2) Neuroleptic malignant syndrome ICD Code: G21.0 Status: Acute (3) DM (diabetes mellitus) ICD Code: E11.9 Status: Chronic (4) HLD (hyperlipidemia) ICD Code: E78.5 Status: Acute Assessment and Plan Patient is a 46-year-old female with primary medical history of anxiety, depression, bipolar disorder, schizophrenia, DM 2 who came in to the hospital via EMS secondary to increased confusion, not acting right, questionable suicidal ideation. As per records, patient was nonverbal and unable to provide history during the time of admission. She was admitted for acute encephalopathy , delirium, urinary tract infection. During the course of her hospitalization patient had severe agitation when she has needed vest and 4-point Restraints. She was seen by neurologist for possible neuroleptic malignant syndrome, she was given IV Dantrolene, with significant improvement in rigidity and stiffness. CT of the head was done with no acute intracranial disease. EEG was done negative for seizures. Patient was also treated with sepsis, urinary tract infection given multiple antibiotics and now switched to Bactrim by mouth. She is now admitted to medical psych unit for further evaluation. Consulted for medical management. Schizophrenia, psychosis, bipolar - angina by psychiatry team Metabolic encephalopathy -Most likely multifocal factorial due to Neuroleptic malignant syndrome and UTI. -CT scan of the head was negative. -EEG 10/27: Showing possible left temporal lobe epileptiform activity. The repeat EEG was normal. -Resolved. Possible Neuroleptic malignant syndrome -Neurologist and psychiatrist were consulted. -Patient was given 100 mg IV dantrolene with significant improvement in rigidity/stiffness in the inpatient setting. -No medications at this time other than when necessary Ativan. -She is asymptomatic at the moment. UTI due to Escherichia coli - Initially treated with Rocephin and that was changed to cefepime. - Now on Bactrim, to complete end date 11/03/69 DM 2 - Metformin 1000 mg twice a day - Insulin sliding scale, monitor BG before meals/at bedtime - Check hemoglobin A1c - Monitor for hypoglycemia HLD - ASCVD 10 year risk 3.2%, recommended for moderate intensity statin - Discussed with patient recommendation for statin use. Discuss risks and benefits with patient. In agreement with plan. - Lipitor 20 mg daily Hypokalemia - Potassium replacement - Start potassium 10 MEQ daily - Check magnesium level. Replacement provided. Refused IV magnesium. Will order mag ox twice a day 2 days - Improved. Diarrhea - possibly secondary from magnesium oxide use. Magnesium oxide if diarrhea continues. Check C. difficile if continues to have diarrhea. DVT prop ambulatory Discussed with patient, nursing Written by Tarik Mistry, acting as scribe for Dr. Garrett on 11/01/16 at 11:58. All or portions of this note were transcribed by scribe Tarik Mistry. I, Dr. Tripp Garrett personally performed the history, physical exam, and medical decision making; and confirmed the accuracy of the information in the transcribed note. Authenticated by Dr. Tripp Garrett on 11/02/16 at 15:26. Tarik Owen Nov 02, 2016 12:41 Tripp Garrett MD Nov 02, 2016 15:26
[2016-11-02 20:42] VITALS: BP 124/77; PULSE 87; RESP 18; TEMP 98; O2SAT 98
[2016-11-02] MEDS: REMOVE OLD NICOTINE PATCH T-DERMAL SCH (21:00)
[2016-11-02] MEDS: ZOLPIDEM TARTRATE 10 MG TAB PO PRN (22:01)
[2016-11-03] MEDS: LORazepam 1 MG TAB PO PRN ×2 (01:34→13:20)
[2016-11-03] MEDS: LEVOTHYROXINE SODIUM 200 MCG TAB PO SCH (05:14)
[2016-11-03] MEDS: LEVOTHYROXINE SODIUM 25 MCG TAB PO SCH (05:14)
[2016-11-03 05:27] VITALS: BP 131/60; PULSE 75; RESP 20; TEMP 98.1; O2SAT 100
[2016-11-03] MEDS: INSULIN ASPART SUPPLEMENTAL SCALE SQ SCH ×4 (06:03→21:00)
[2016-11-03] MEDS: LITHIUM CARBONATE 300 MG TAB PO SCH ×2 (08:17→20:32)
[2016-11-03] MEDS: MAGNESIUM OXIDE 400 MG TAB PO SCH ×2 (08:17→21:00)
[2016-11-03] MEDS: metFORMIN HCL 500 MG TAB PO SCH ×2 (08:17→17:18)
[2016-11-03] MEDS: NICOTINE 21 MG/24 HR PATCH T-DERMAL SCH (08:17)
[2016-11-03] MEDS: SULFAMETHOXAZOLE-TRIMETHOPRIM DS 800-160 MG TAB PO SCH ×2 (08:18→20:32)
[2016-11-03] MEDS ORDERED: LORazepam 2 MG/ML VIAL IV PUSH STA (09:58)
[2016-11-03] MEDS ORDERED: PILL SPLITTER OTHER PRN (10:15)
[2016-11-03 10:23] VITALS: BP 135/74; PULSE 74; TEMP 98; O2SAT 96
--- NOTE | 2016-11-03 10:52 | HHI.PR ---
Subjective Remarks Follow-up visit DM 2, HLD, bipolar disorder. Patient seen today. Reports she hasn't been sleeping at night. Status post fall 10 minutes prior to being seen. States she hit her elbow while she was walking and turning around, poor historian as to remembering the exact details. States she only hit the left elbow, not any other part of her body was hit. Left elbow abrasion noted. Patient states she is able to move it around ROS not limited. Discuss getting x -ray. Patient declines states will monitor for now. Denies pain and discomfort. Denies SOB/ dyspnea. Denies chest pain, palpitations, headaches, dizziness. Denies fevers, chills, n/v/d. Objective Vitals Vital Signs Date Time Temp Pulse Resp B/P Pulse Ox O2 Delivery O2 Flow Rate FiO2 11/03/16 10:23 98.0 74 135/74 96 11/03/16 05:27 98.1 75 20 131/60 100 11/02/16 20:42 98.0 87 18 124/77 98 I/O 11/02/16 11/02/16 11/02/16 11/03/16 11/03/16 11/03/16 07:00 15:00 23:00 07:00 15:00 23:00 Intake Total 240 ml 360 ml 840 ml Balance 240 ml 360 ml 840 ml Intake Oral 240 ml 360 ml 840 ml # Voids 1 6 Result Diagram: 11/02/16 0810 Objective Remarks GENERAL: This is an obese, middle-aged white female, no acute distress, flat affect SKIN: Mild edema right second and third toes, no pain to palpation. HEAD: Atraumatic. Normocephalic. No temporal or scalp tenderness. EYES: Pupils equal round and reactive. No scleral icterus. No injection or drainage. ENT: Nose without bleeding. Throat without erythema. Uvula midline. Airway patent. NECK: Trachea midline. No JVD or lymphadenopathy. Supple, nontender, no meningeal signs. CARDIOVASCULAR: Regular rate and rhythm without murmurs, gallops, or rubs. RESPIRATORY: Clear to auscultation. Breath sounds equal bilaterally. No wheezes , rales, or rhonchi. GASTROINTESTINAL: Abdomen soft, non-tender, nondistended. Bowel sounds hypoactive 4. No CVA tenderness. MUSCULOSKELETAL: Extremities without clubbing, cyanosis, trace bilateral lower extremity edema. No joint tenderness, effusion, or edema noted. Left elbow abrasion, R OM within normal. NEUROLOGICAL: Awake and alert. Flat affect. Able to follow commands. Slow thought process. Slow speech response. Motor and sensory grossly within normal limits. A/P Problem List: (1) Bipolar disorder, current episode mixed ICD Code: F31.60 Status: Acute (2) Neuroleptic malignant syndrome ICD Code: G21.0 Status: Acute (3) DM (diabetes mellitus) ICD Code: E11.9 Status: Chronic (4) HLD (hyperlipidemia) ICD Code: E78.5 Status: Acute Assessment and Plan Patient is a 46-year-old female with primary medical history of anxiety, depression, bipolar disorder, schizophrenia, DM 2 who came in to the hospital via EMS secondary to increased confusion, not acting right, questionable suicidal ideation. As per records, patient was nonverbal and unable to provide history during the time of admission. She was admitted for acute encephalopathy , delirium, urinary tract infection. During the course of her hospitalization patient had severe agitation when she has needed vest and 4-point Restraints. She was seen by neurologist for possible neuroleptic malignant syndrome, she was given IV Dantrolene, with significant improvement in rigidity and stiffness. CT of the head was done with no acute intracranial disease. EEG was done negative for seizures. Patient was also treated with sepsis, urinary tract infection given multiple antibiotics and now switched to Bactrim by mouth. She is now admitted to medical psych unit for further evaluation. Consulted for medical management. Schizophrenia, psychosis, bipolar -managed by psychiatry team Insomnia, manic Status post fall, left elbow abrasion - Ice on and off - Patient declines x-ray right now. If increasing pain, discussed with nurse to notify provider, x-ray will be ordered. Metabolic encephalopathy -Most likely multifocal factorial due to Neuroleptic malignant syndrome and UTI. -CT scan of the head was negative. -EEG 10/27: Showing possible left temporal lobe epileptiform activity. The repeat EEG was normal. -Resolved. Possible Neuroleptic malignant syndrome -Neurologist and psychiatrist were consulted. -Patient was given 100 mg IV dantrolene with significant improvement in rigidity/stiffness in the inpatient setting. -No medications at this time other than when necessary Ativan. -She is asymptomatic at the moment. UTI due to Escherichia coli - Initially treated with Rocephin and that was changed to cefepime. - Now on Bactrim, to complete end date 11/03/16 DM 2 - Metformin 1000 mg twice a day - Insulin sliding scale, monitor BG before meals/at bedtime - hemoglobin A1c 6.1 - Monitor for hypoglycemia Hypothyroidism - On levothyroxine 225 g daily - Elevated TSH with normal T4, low T3. Adequate T4 concentrations, May benefit with addition of T3 replacement. - Recommend to see control systems developer as an outpatient for additional T3 replacement. [place] treatment for psychiatric disease may contribute to hypothyroidism. HLD - ASCVD 10 year risk 3.2%, recommended for moderate intensity statin - Discussed with patient recommendation for statin use. Discuss risks and benefits with patient. In agreement with plan. - Lipitor 20 mg daily Hypokalemia - Potassium replacement - Start potassium 10 MEQ daily - Check magnesium level. Replacement provided. Refused IV magnesium. Will order mag ox twice a day 2 days - Improved. - Recheck BMP Diarrhea - possibly secondary from magnesium oxide use. Magnesium oxide if diarrhea continues. Check C. difficile if continues to have diarrhea. - Denies diarrhea DVT prop ambulatory Discussed with patient, nursing Written by Tarik Mistry, on behalf of Dr. Garrett on 11/03/16 at 10:52. All or portions of this note were transcribed by sachin Mistry. I, Dr. Tripp Garrett personally performed the history, physical exam, and medical decision making; and confirmed the accuracy of the information in the transcribed note. Authenticated by Dr. Tripp Garrett on 11/03/16 at 17:26. Tarik Owen Nov 03, 2016 10:52 Tripp Garrett MD Nov 03, 2016 17:26
--- NOTE | 2016-11-03 11:30 | HHI.PYPN ---
Subjective Remarks On psychiatric evaluation today patient is found in her room, agitated, irritable, complaining of seeing snakes this morning. She states that she took this may with her hands and flushed them in the toilet. Patient reports that she did not sleep last night. She reports having mood, she says that she has increased energy. At times becomes disorganized and tangential with noticeable rapid speech. She denies suicidal or homicidal ideation, she denies visual and auditory hallucinations. As per nurse in charge, patient has been witnessed to be agitated, disorganized, entering into other patient's room and disruptive in the unit, which is a new behavior since she was admitted. Patient has been fully compliant with medications, so far redirectable verbally. Review of Systems Other No somatic delusions at this moment Objective Alert: Yes [place]: Person, Place, Date, Situation Mood: Agitated, Other (irritable) Affect: Labile, Manic Memory Intact: Immediate, Recent, Remote Hallucinations: Visual (patient has reported seeing snakes following her), Other (denies AVH) Delusions: Yes (paranoid type) Delusion Type: Paranoid, Other Suicidal: Ideation (denies SI) Homicidal: Ideation (denies HI) Insight/Judgement Poor Vitals/IOs Vital Signs Date Time Temp Pulse Resp B/P Pulse Ox O2 Delivery O2 Flow Rate FiO2 11/03/16 10:23 98.0 74 135/74 96 11/03/16 05:27 20 Intake and Output 11/02/16 11/02/16 11/03/16 08:00 16:00 00:00 Intake Total 240 ml 360 ml 480 ml Balance 240 ml 360 ml 480 ml Assessment & Plan Problem List: (1) Bipolar affective disorder, current episode manic Assessment & Plan: On psychiatric evaluation today the patients has somewhat disorganized behavior and speech, with new onset delusions of being followed by snakes, very poor sleep at night and motoric agitation. He is highly probable that since all antipsychotics and psychotropics were discontinued due to NMS patient is now relapsing in a manic/psychotic state. Will try to avoid antipsychotics for at least 2 weeks. We will increase lithium to 450 mg twice a day, will order Ativan 2 mg twice a day to help with agitation. Monitor closely behavior, mood and thought process. Please, avoid ETO's with antipsychotics. Extensive support, motivation psycho education provided. ICD Code: F31.9 Assessment & Plan Estimated LOS: days Justification for Cont. Inpt. Patient is acutely manic at this moment and needs to continue psychiatric hospitalization for stabilization and titration of psychotropics. Dwayne You MD Nov 03, 2016 11:30
[2016-11-03] MEDS ORDERED: diphenhydrAMINE HCL 50 MG/ML VIAL ONE (15:24)
[2016-11-03] MEDS ORDERED: diphenhydrAMINE HCL 50 MG/ML VIAL IM ONE ×2 (16:00→20:30)
[2016-11-03] MEDS ORDERED: LORazepam 2 MG/ML VIAL IM ONE ×2 (16:45→20:30)
[2016-11-03] MEDS ORDERED: LITHIUM CARBONATE 300 MG TAB PO ONE (16:45)
[2016-11-03 18:30] VITALS: BP 138/87; PULSE 88; RESP 16; TEMP 97.9; O2SAT 97
[2016-11-03] MEDS ORDERED: LORazepam 2 MG TAB PO SCH (21:00)
[2016-11-03] MEDS: REMOVE OLD NICOTINE PATCH T-DERMAL SCH (21:00)
[2016-11-03] MEDS: ZOLPIDEM TARTRATE 10 MG TAB PO PRN (21:39)
[2016-11-03 22:10] VITALS: BP 142/69; PULSE 89; RESP 20; TEMP 98.2; O2SAT 99
[2016-11-04] MEDS: INSULIN ASPART SUPPLEMENTAL SCALE SQ SCH ×4 (05:44→21:00)
[2016-11-04] MEDS: LEVOTHYROXINE SODIUM 25 MCG TAB PO SCH (05:45)
[2016-11-04] MEDS: LEVOTHYROXINE SODIUM 200 MCG TAB PO SCH (05:45)
[2016-11-04 06:31] VITALS: BP 147/91; PULSE 88; RESP 22; TEMP 97.4; O2SAT 97
[2016-11-04 07:09] LABS: BICARBONATE 23.5 MEQ/L (21.0-32.0); MAGNESIUM 2.2 MG/DL (1.5-2.5); POTASSIUM 3.9 MEQ/L (3.5-5.1)
--- NOTE | 2016-11-04 08:03 | HHI.PYPN ---
Subjective Remarks Patient is seen for psychiatric reevaluation today, she is found in her room, agitated, talkative, tangentia under one-to-one observation, very disorganized, but redirectable. Patient is requesting to go home, she says that she feels extremely happy and is ready to take care of her son and her house. She says that she has been happy to be here [place] with all these animals. As per nurse in charge, patient did not sleep last night, she was very disruptive in the floor, entering to others patient's room and at times difficult to manage. The patient denies suicidal and homicidal ideation, she denies visual and auditory hallucinations, however she did report that she was seen dogs and snakes in side er room. Patient has been fully compliant with her medications, no significant side effects noticed at this moment. Increase in blood pressure and heart rate, in her sensation of heat, patient has been complaining of feeling hot, was discussed with primary care team. Review of Systems Other No somatic complaints Objective Alert: Yes [place]: Person, Place, Date, Situation Mood: Agitated, Other (irritable) Affect: Labile, Manic Memory Intact: Immediate, Recent, Remote Hallucinations: Visual (patient has reported seeing snakes and dogs in her room ), Other (denies AVH) Delusions: Yes (paranoid type) Delusion Type: Paranoid, Other Suicidal: Ideation (denies SI) Homicidal: Ideation (denies HI) Insight/Judgement poor Labs Test 11/04/16 05:56 Sodium Level 139 MEQ/L Potassium Level 3.9 MEQ/L Chloride Level 107 MEQ/L Carbon Dioxide Level 23.5 MEQ/L Anion Gap 9 MEQ/L Blood Urea Nitrogen 14 MG/DL Creatinine 1.03 MG/DL Estimat Glomerular Filtration 58 ML/MIN Rate Random Glucose 132 MG/DL Calcium Level 9.3 MG/DL Magnesium Level 2.2 MG/DL Vitals/IOs Vital Signs Date Time Temp Pulse Resp B/P Pulse Ox O2 Delivery O2 Flow Rate FiO2 11/04/16 06:31 97.4 88 22 147/91 97 Intake and Output 11/03/16 11/03/16 11/04/16 08:00 16:00 00:00 Intake Total 360 ml 480 ml 1560 ml Balance 360 ml 480 ml 1560 ml Assessment & Plan Problem List: (1) Bipolar affective disorder, current episode manic Assessment & Plan: Patient continues showing significant symptomatology of [place]. Would continue treating agitation with Ativan 2 mg 3 times a day, Ativan 2 mg IV every 3 hours when necessary severe agitation . Continue lithium 450 mg twice a day, will increase to 600 twice a day tomorrow after lithium levels . Order Li levels, CBC, CMP, CPK. Support, psychoeducation, motivation provided. ICD Code: F31.9 Assessment & Plan Estimated LOS: days Justification for Cont. Inpt. Patient is acutely manic at this moment, and is to continue psychiatric hospitalization for stabilization. Dwayne You MD Nov 04, 2016 08:03
[2016-11-04] MEDS: MAGNESIUM OXIDE 400 MG TAB PO SCH ×2 (09:00→22:11)
[2016-11-04] MEDS: NICOTINE 21 MG/24 HR PATCH T-DERMAL SCH (09:00)
--- NOTE | 2016-11-04 09:36 | HHI.PR ---
Subjective Remarks Follow-up visit NMS, DM 2, HLD and bipolar disorder. Patient seen and examined today. Reports resolution of loose stools. Reports one normal stool earlier today. C/O being hot per psychiatric team. Patient is manic per their assessment. Unable to give antipsychotics secondary to recent NMS. Denies any acute medical complaints including no chest pain, abdominal pain or SOB. Objective Vitals Vital Signs Date Time Temp Pulse Resp B/P Pulse Ox O2 Delivery O2 Flow Rate FiO2 11/04/16 06:31 97.4 88 22 147/91 97 11/03/16 22:10 98.2 89 20 142/69 99 11/03/16 18:30 97.9 88 16 138/87 97 11/03/16 10:23 98.0 74 135/74 96 I/O 11/03/16 11/03/16 11/03/16 11/04/16 11/04/16 11/04/16 07:00 15:00 23:00 07:00 15:00 23:00 Intake Total 840 ml 480 ml 120 ml 1780 ml Balance 840 ml 480 ml 120 ml 1780 ml Intake Oral 840 ml 480 ml 120 ml 1780 ml # Voids 6 1 10 # Bowel Movements 1 Result Diagram: 11/04/16 0556 Objective Remarks GENERAL: This is an obese, middle-aged white female, no acute distress, flat affect SKIN: Mild edema right second and third toes, no pain to palpation. HEAD: Atraumatic. Normocephalic. No temporal or scalp tenderness. EYES: Pupils equal round and reactive. No scleral icterus. No injection or drainage. ENT: Nose without bleeding. Throat without erythema. Uvula midline. Airway patent. NECK: Trachea midline. No JVD or lymphadenopathy. Supple, nontender, no meningeal signs. CARDIOVASCULAR: Regular rate and rhythm without murmurs, gallops, or rubs. RESPIRATORY: Clear to auscultation. Breath sounds equal bilaterally. No wheezes , rales, or rhonchi. GASTROINTESTINAL: Abdomen soft, non-tender, nondistended. Bowel sounds hypoactive 4. No CVA tenderness. MUSCULOSKELETAL: Extremities without clubbing, cyanosis, trace bilateral lower extremity edema. No joint tenderness, effusion, or edema noted. Left elbow abrasion, R OM within normal. NEUROLOGICAL: Awake and alert. Flat affect. Able to follow commands. Slow thought process. Slow speech response. Motor and sensory grossly within normal limits. A/P Medications and IVs Current Medications Medications (Trade) Dose Ordered Sig/Jason Route Start Time Stop Time Status Last Admin (Ativan) 1 mg Q6H PRN PO 10/30/16 13:45 11/03/16 13:20 (Ativan Inj) 1 mg Q6H PRN IM 10/30/16 13:45 10/30/16 14:54 (Tylenol) 650 mg Q4H PRN PO 10/30/16 13:45 10/31/16 03:12 (Milk Of Magnesia Liq) 30 ml DAILY PRN PO 10/30/16 13:45 (Mag-Al Plus Susp Liq) 30 ml Q6H PRN PO 10/30/16 13:45 (Habitrol 21 Mg Patch.24 Hr) 1 patch DAILY T-DERMAL 10/30/16 14:00 11/03/16 08:17 Miscellaneous Information 1 HS T-DERMAL 10/30/16 21:00 11/03/16 21:00 (Synthroid) 25 mcg DAILY@0600 PO 10/31/16 06:00 11/04/16 05:45 (Synthroid) 200 mcg DAILY@0600 PO 10/31/16 06:00 11/04/16 05:45 (Glucophage) 1,000 mg BIDPC PO 10/30/16 18:00 11/03/16 17:18 (Bactrim Ds 800-160 Mg) 1 tab BID PO 10/30/16 21:00 11/04/16 20:59 11/03/16 20:32 (Ventolin Hfa Inh) 2 puff Q4H PRN INH 10/30/16 16:59 (D50w (Vial) Inj) 25 ml UNSCH PRN IV PUSH 10/31/16 15:15 (Glucagon Inj) 1 mg UNSCH PRN OTHER 10/31/16 15:15 (Mag-Ox) 400 mg Q12HR PO 11/01/16 13:00 11/03/16 08:17 (Ambien) 10 mg HS PRN PO 11/02/16 11:30 11/03/16 21:39 (Lithotabs) 450 mg Q12HR PO 11/03/16 21:00 11/03/16 20:32 (Ativan) 2 mg HS PO 11/03/16 21:00 11/03/16 21:39 (Pill Splitter) 1 ea UNSCH PRN OTHER 11/03/16 10:15 A/P Problem List: (1) Bipolar disorder, current episode mixed ICD Code: F31.60 Status: Acute (2) Neuroleptic malignant syndrome ICD Code: G21.0 Status: Acute (3) DM (diabetes mellitus) ICD Code: E11.9 Status: Chronic (4) HLD (hyperlipidemia) ICD Code: E78.5 Status: Acute Assessment and Plan Patient is a 46-year-old female with primary medical history of anxiety, depression, bipolar disorder, schizophrenia, DM 2 who came in to the hospital via EMS secondary to increased confusion, not acting right, questionable suicidal ideation. As per records, patient was nonverbal and unable to provide history during the time of admission. She was admitted for acute encephalopathy , delirium, urinary tract infection. During the course of her hospitalization patient had severe agitation when she has needed vest and 4-point Restraints. She was seen by neurologist for possible neuroleptic malignant syndrome, she was given IV Dantrolene, with significant improvement in rigidity and stiffness. CT of the head was done with no acute intracranial disease. EEG was done negative for seizures. Patient was also treated with sepsis, urinary tract infection given multiple antibiotics and now switched to Bactrim by mouth. She is now admitted to medical psych unit for further evaluation. Consulted for medical management. Schizophrenia, psychosis, bipolar, Insomnia, manic - managed by psychiatry team - Unable to give antipsychotics for 2 weeks status post NMS - recheck labs including CBC, CMP, CPK and lithium level Status post fall, left elbow abrasion - No complaints of left elbow pain at present - Ice on and off - Patient declines x-ray right now. If increasing pain, discussed with nurse to notify provider, x-ray will be ordered. Metabolic encephalopathy -Most likely multifocal factorial due to Neuroleptic malignant syndrome and UTI. -CT scan of the head was negative. -EEG 10/27: Showing possible left temporal lobe epileptiform activity. The repeat EEG was normal. -Resolved. History of recent Neuroleptic malignant syndrome -Neurologist and psychiatrist were consulted. -Patient was given 100 mg IV dantrolene with significant improvement in rigidity/stiffness in the inpatient setting. -No medications at this time other than when necessary Ativan. -She is asymptomatic at the moment. UTI due to Escherichia coli - Initially treated with Rocephin and that was changed to cefepime. - Completed course of Bactrim DM 2 - Blood sugars well controlled - Metformin 1000 mg twice a day - Insulin sliding scale, monitor BG before meals/at bedtime - hemoglobin A1c 6.1 - Monitor for hypoglycemia Hypothyroidism - On levothyroxine 225 g daily - Elevated TSH with normal T4, low T3. Adequate T4 concentrations, May benefit with addition of T3 replacement. - Recommend to see industrial technologist as an outpatient for additional T3 replacement. [place] treatment for psychiatric disease may contribute to hypothyroidism. [place] level ordered/pending. HLD - ASCVD 10 year risk 3.2%, recommended for moderate intensity statin - Discussed with patient recommendation for statin use. Discuss risks and benefits with patient. In agreement with plan. - Lipitor 20 mg daily Hypokalemia - resolved - continue with potassium replacement - Magnesium level 2.2. - Continue to monitor Diarrhea - possibly secondary from magnesium oxide use. - Resolved DVT prop ambulatory Discussed with patient, nursing staff, psychiatric team Written by Lacy Hamilton PA-C acting as scribe for Dr. Garrett on 11/04/16 at 09:32. All or portions of this note were transcribed by scribe Lacy Hamilton PA-C. I, Dr. Tripp Garrett personally performed the history, physical exam, and medical decision making; and confirmed the accuracy of the information in the transcribed note. Authenticated by Dr. Tripp Garrett on 11/04/16 at 15:26. Lacy Hamilton Nov 04, 2016 09:36 Tripp Garrett MD Nov 04, 2016 15:27
[2016-11-04] MEDS: SULFAMETHOXAZOLE-TRIMETHOPRIM DS 800-160 MG TAB PO SCH (10:18)
[2016-11-04] MEDS: metFORMIN HCL 500 MG TAB PO SCH ×2 (10:19→17:57)
[2016-11-04] MEDS: LITHIUM CARBONATE 300 MG TAB PO SCH ×2 (10:19→22:03)
[2016-11-04 11:08] LABS: AUTOMATED NEUTROPHIL # 5.6 TH/MM3 (1.8-7.7); BASOPHIL # 0.1 TH/MM3 (0-0.2); BASOPHIL % 1.4 % (0.0-2.0); EOSINOPHIL # 0.2 TH/MM3 (0-0.4); HEMATOCRIT 40.2 % (35.0-46.0); HEMO FLAGS DIFF FINAL; LYMPH % 16.6 % (9.0-44.0); LYMPHOCYTE # 1.4 TH/MM3 (1.0-4.8); MEAN CELL VOLUME 85.3 FL (80.0-100.0); MEAN CORPUSCULAR HGB CONC 32.8 % (32.0-36.0); MONO % 11.1 % (0.0-8.0); NEUT % 67.9 % (16.0-70.0); PLATELET COUNT 292 TH/MM3 (150-450); RED BLOOD COUNT 4.71 MIL/MM3 (4.00-5.30); RED CELL DISTRIBUTION WIDTH 14.6 % (11.6-17.2); WHITE BLOOD COUNT 8.3 TH/MM3 (4.0-11.0)
[2016-11-04 11:31] LABS: ANION GAP 9 MEQ/L (5-15); AST (GOT) 48 U/L (15-37); BICARBONATE 23.4 MEQ/L (21.0-32.0); BLOOD UREA NITROGEN 13 MG/DL (7-18); CHLORIDE 107 MEQ/L (98-107); GLOMERULAR FILTRATION RATE 60 ML/MIN (>89); SODIUM (NA) 139 MEQ/L (136-145)
[2016-11-04 11:39] LABS: ALKALINE PHOSPHATASE 41 U/L (45-117); ALT (GPT) 61 U/L (10-53); TOTAL BILIRUBIN ADULT 0.5 MG/DL (0.2-1.0)
[2016-11-04 12:22] LABS: CREATINE KINASE 1013 U/L (26-192)
[2016-11-04 12:38] LABS: CKMB 22.2 NG/ML (0.5-3.6)
[2016-11-04] MEDS: VALPROIC ACID 250 MG CAP PO SCH ×2 (13:15→22:03)
[2016-11-04] MEDS: NS + KCL 20 MEQ INJ 1,000 ML IV SCH (16:00)
[2016-11-04 17:16] VITALS: BP 141/98; PULSE 96; RESP 20; TEMP 97.8; O2SAT 98
[2016-11-04] MEDS: REMOVE OLD NICOTINE PATCH T-DERMAL SCH (21:00)
[2016-11-04] MEDS: ZOLPIDEM TARTRATE 10 MG TAB PO PRN (22:02)
[2016-11-04] MEDS: LORazepam 2 MG TAB PO SCH (22:15)
[2016-11-04] MEDS ORDERED: diphenhydrAMINE HCL 50 MG/ML VIAL IM ONE (23:15)
[2016-11-04] MEDS: LORazepam 2 MG/ML VIAL IM PRN (23:27)
[2016-11-05] MEDS: NS + KCL 20 MEQ INJ 1,000 ML IV SCH ×6 (02:00→22:00)
[2016-11-05 05:46] VITALS: BP 141/82; PULSE 94; RESP 20; TEMP 98.2; O2SAT 95
[2016-11-05] MEDS: LEVOTHYROXINE SODIUM 25 MCG TAB PO SCH (06:00)
[2016-11-05] MEDS: LEVOTHYROXINE SODIUM 200 MCG TAB PO SCH (06:00)
[2016-11-05] MEDS: INSULIN ASPART SUPPLEMENTAL SCALE SQ SCH ×4 (07:00→21:00)
[2016-11-05] MEDS: NICOTINE 21 MG/24 HR PATCH T-DERMAL SCH (09:00)
[2016-11-05] MEDS: LORazepam 2 MG TAB PO SCH ×2 (09:00→20:46)
[2016-11-05] MEDS: MAGNESIUM OXIDE 400 MG TAB PO SCH (09:00)
[2016-11-05] MEDS: metFORMIN HCL 500 MG TAB PO SCH ×2 (09:17→17:25)
[2016-11-05] MEDS: LITHIUM CARBONATE 300 MG TAB PO SCH ×2 (09:17→20:47)
[2016-11-05] MEDS: VALPROIC ACID 250 MG CAP PO SCH ×2 (09:17→21:00)
--- NOTE | 2016-11-05 10:35 | HHI.PR ---
Subjective Remarks Follow-up visit on patient with NMS, DM 2, HLD and bipolar disorder. Patient seen and examined in the community room watching TV with aide present. Discussed with nursing staff - no acute issues overnight. Patient with increased cough. No other acute medical complaints including chest pain, abdominal pain or shortness of breath. Objective Vitals Vital Signs Date Time Temp Pulse Resp B/P Pulse Ox O2 Delivery O2 Flow Rate FiO2 11/05/16 05:46 98.2 94 20 141/82 95 11/04/16 17:16 97.8 96 20 141/98 98 I/O 11/04/16 11/04/16 11/04/16 11/05/16 11/05/16 11/05/16 07:00 15:00 23:00 07:00 15:00 23:00 Intake Total 1780 ml 1200 ml 980 ml 240 ml Balance 1780 ml 1200 ml 980 ml 240 ml Intake Oral 1780 ml 1200 ml 980 ml 240 ml # Voids 10 3 3 1 # Bowel Movements 1 Result Diagram: 11/04/16 1012 11/04/16 1012 Objective Remarks GENERAL: This is an obese, middle-aged white female, no acute distress, flat affect. Sitting up in a recliner. SKIN: Mild edema right second and third toes, no pain to palpation. HEAD: Atraumatic. Normocephalic. No temporal or scalp tenderness. EYES: EOMI. CARDIOVASCULAR: Regular rate and rhythm without murmurs, gallops, or rubs. RESPIRATORY: Bilateral rhonchi, worse on the right. Breath sounds equal bilaterally. No wheezing noted. GASTROINTESTINAL: Abdomen soft, non-tender, nondistended. Bowel sounds hypoactive 4. MUSCULOSKELETAL: Extremities without clubbing, cyanosis, trace bilateral lower extremity edema. No joint tenderness, effusion, or edema noted. Left elbow abrasion, ROM within normal. NEUROLOGICAL: Awake and alert. Flat affect. Able to follow commands. Slow thought process. Slow speech response. Motor and sensory grossly within normal limits. Medications and IVs Current Medications Medications (Trade) Dose Ordered Sig/Jason Route Start Time Stop Time Status Last Admin (Ativan) 1 mg Q6H PRN PO 10/30/16 13:45 11/03/16 13:20 (Ativan Inj) 1 mg Q6H PRN IM 10/30/16 13:45 11/04/16 23:27 (Tylenol) 650 mg Q4H PRN PO 10/30/16 13:45 10/31/16 03:12 (Milk Of Magnesia Liq) 30 ml DAILY PRN PO 10/30/16 13:45 (Mag-Al Plus Susp Liq) 30 ml Q6H PRN PO 10/30/16 13:45 (Habitrol 21 Mg Patch.24 Hr) 1 patch DAILY T-DERMAL 10/30/16 14:00 11/03/16 08:17 Miscellaneous Information 1 HS T-DERMAL 10/30/16 21:00 11/03/16 21:00 (Synthroid) 25 mcg DAILY@0600 PO 10/31/16 06:00 11/04/16 05:45 (Synthroid) 200 mcg DAILY@0600 PO 10/31/16 06:00 11/04/16 05:45 (Glucophage) 1,000 mg BIDPC PO 10/30/16 18:00 11/05/16 09:17 (Ventolin Hfa Inh) 2 puff Q4H PRN INH 10/30/16 16:59 (D50w (Vial) Inj) 25 ml UNSCH PRN IV PUSH 10/31/16 15:15 (Glucagon Inj) 1 mg UNSCH PRN OTHER 10/31/16 15:15 (Mag-Ox) 400 mg Q12HR PO 11/01/16 13:00 11/04/16 22:11 (Ambien) 10 mg HS PRN PO 11/02/16 11:30 11/04/16 22:02 (Lithotabs) 450 mg Q12HR PO 11/03/16 21:00 11/05/16 09:17 (Pill Splitter) 1 ea UNSCH PRN OTHER 11/03/16 10:15 (Ativan) 2 mg BID PO 11/04/16 21:00 11/04/16 22:15 Valproic Acid 250 mg 250 mg Q12HR PO 11/04/16 13:15 11/05/16 09:17 (NS + KCl 20 Meq Inj) 1,000 ml @ 100 mls/hr Q10H IV 11/04/16 16:00 11/05/16 02:00 A/P Problem List: (1) Bipolar disorder, current episode mixed ICD Code: F31.60 Status: Acute (2) Neuroleptic malignant syndrome ICD Code: G21.0 Status: Acute (3) DM (diabetes mellitus) ICD Code: E11.9 Status: Chronic (4) HLD (hyperlipidemia) ICD Code: E78.5 Status: Acute Assessment and Plan Patient is a 46-year-old female with primary medical history of anxiety, depression, bipolar disorder, schizophrenia, DM 2 who came in to the hospital via EMS secondary to increased confusion, not acting right, questionable suicidal ideation. As per records, patient was nonverbal and unable to provide history during the time of admission. She was admitted for acute encephalopathy , delirium, urinary tract infection. During the course of her hospitalization patient had severe agitation when she has needed vest and 4-point Restraints. She was seen by neurologist for possible neuroleptic malignant syndrome, she was given IV Dantrolene, with significant improvement in rigidity and stiffness. CT of the head was done with no acute intracranial disease. EEG was done negative for seizures. Patient was also treated with sepsis, urinary tract infection given multiple antibiotics and now switched to Bactrim by mouth. She is now admitted to medical psych unit for further evaluation. Consulted for medical management. Schizophrenia, psychosis, bipolar, Insomnia, manic - managed by psychiatry team - Unable to give antipsychotics for 2 weeks status post NMS - recheck labs including CBC WNL, CMP WNL except for mild transaminitis with AST 48 and ALT 61, CPK elevated at 1013 and lithium level 0.5 Status post fall, left elbow abrasion - No complaints of left elbow pain at present - Ice on and off - Patient declines x-ray right now. If increasing pain, discussed with nurse to notify provider, x-ray will be ordered. Metabolic encephalopathy -Most likely multifocal factorial due to Neuroleptic malignant syndrome and UTI. -CT scan of the head was negative. -EEG 10/27: Showing possible left temporal lobe epileptiform activity. The repeat EEG was normal. -Resolved. History of recent Neuroleptic malignant syndrome -Neurologist and psychiatrist were consulted. -Patient was given 100 mg IV dantrolene with significant improvement in rigidity/stiffness in the inpatient setting. -No medications at this time other than when necessary Ativan. -She is asymptomatic at the moment. UTI due to Escherichia coli - Initially treated with Rocephin and that was changed to cefepime. - Completed course of Bactrim DM 2 - Blood sugars well controlled - Metformin 1000 mg twice a day - Insulin sliding scale, monitor BG before meals/at bedtime - hemoglobin A1c 6.1 - Monitor for hypoglycemia Hypothyroidism - On levothyroxine 225 g daily - Elevated TSH with normal T4, low T3. Adequate T4 concentrations, May benefit with addition of T3 replacement. - Recommend to see solar sales representative as an outpatient for additional T3 replacement. [place] treatment for psychiatric disease may contribute to hypothyroidism. [place] level ordered/pending. HLD - ASCVD 10 year risk 3.2%, recommended for moderate intensity statin - Discussed with patient recommendation for statin use. Discuss risks and benefits with patient. In agreement with plan. - Lipitor 20 mg daily Hypokalemia - resolved - continue with potassium replacement - Magnesium level 2.2. - Continue to monitor Mild transaminitis secondary to rhabdomyolysis - AST 48, ALT 61 - continue to monitor Rhabdomyolysis - possible dehydration - started on IVF - lab pending Diarrhea - possibly secondary from magnesium oxide use. - Resolved DVT prop ambulatory Discussed with patient, nursing staff Written by Lacy Hamilton, acting as scribe for Dr. Garrett on 11/05/16 at 10: 26. All or portions of this note were transcribed by scribe Lacy Hamilton PA-C . I, Dr. Tripp Garrett personally performed the history, physical exam, and medical decision making; and confirmed the accuracy of the information in the transcribed note. Authenticated by Dr. Tripp Garrett on 11/05/16 at 15:14. Lacy Hamilton Nov 05, 2016 10:35 Tripp Garrett MD Nov 05, 2016 15:15
[2016-11-05 11:39] LABS: BASOPHIL # 0.1 TH/MM3 (0-0.2); BASOPHIL % 1.3 % (0.0-2.0); EOSINOPHIL # 0.2 TH/MM3 (0-0.4); EOSINOPHIL % 2.4 % (0.0-4.0); HEMATOCRIT 40.7 % (35.0-46.0); HEMO FLAGS DIFF FINAL; LYMPH % 16.3 % (9.0-44.0); LYMPHOCYTE # 1.4 TH/MM3 (1.0-4.8); MEAN CELL VOLUME 84.8 FL (80.0-100.0); MEAN CORPUSCULAR HEMOGLOBIN 28.3 PG (27.0-34.0); MEAN CORPUSCULAR HGB CONC 33.4 % (32.0-36.0); MONO % 9.6 % (0.0-8.0); NEUT % 70.4 % (16.0-70.0); PLATELET COUNT 313 TH/MM3 (150-450); RED CELL DISTRIBUTION WIDTH 14.6 % (11.6-17.2); WHITE BLOOD COUNT 8.5 TH/MM3 (4.0-11.0)
--- NOTE | 2016-11-05 12:16 | HHI.PYPN ---
Subjective Remarks Patient is seen today for psychiatric evaluation, she is found in the recreational area of [facility] accompanied by 1:1 observed, patient is calm, but disorganized, she seems to be distant and internally preoccupied, she believes that she is in a zoo surrounded by animals, she reports happy mood, poor sleep at night, she denies suicidal and homicidal ideation, she denies visual and auditory hallucinations. In the unit patient has been disruptive, with marked psychomotor agitation, disorganized, entering in others patient's rooms, last night became very agitated and hostile, had to be restrained in 4 point and given low dose of antipsychotics. Patient has been compliant with her medications. Concerning labs abnormalities noted and discussed with hospitalist : TSH 16.7, CPK 1013, AST 61 ALT 41. Her lithium level is 0.5. Review of Systems Other No somatic complaints Objective Alert: Yes [place]: Person, Date Mood: Agitated, Other (irritable) Affect: Labile, Manic Memory Intact: Immediate, Recent, Remote Hallucinations: Visual (patient has reported seeing snakes and dogs in her room ), Other (denies AVH) Delusions: Yes (paranoid type) Delusion Type: Paranoid, Other Suicidal: Ideation (denies SI) Homicidal: Ideation (denies HI) Insight/Judgement Poor Labs Test 11/05/16 10:40 White Blood Count 8.5 TH/MM3 Red Blood Count 4.80 MIL/MM3 Hemoglobin 13.6 GM/DL Hematocrit 40.7 % Mean Corpuscular Volume 84.8 FL Mean Corpuscular Hemoglobin 28.3 PG Mean Corpuscular Hemoglobin 33.4 % Concent Red Cell Distribution Width 14.6 % Platelet Count 313 TH/MM3 Mean Platelet Volume 9.2 FL Neutrophils (%) (Auto) 70.4 % Lymphocytes (%) (Auto) 16.3 % Monocytes (%) (Auto) 9.6 % Eosinophils (%) (Auto) 2.4 % Basophils (%) (Auto) 1.3 % Neutrophils # (Auto) 6.0 TH/MM3 Lymphocytes # (Auto) 1.4 TH/MM3 Monocytes # (Auto) 0.8 TH/MM3 Eosinophils # (Auto) 0.2 TH/MM3 Basophils # (Auto) 0.1 TH/MM3 CBC Comment DIFF FINAL Differential Comment Vitals/IOs Vital Signs Date Time Temp Pulse Resp B/P Pulse Ox O2 Delivery O2 Flow Rate FiO2 11/05/16 05:46 98.2 94 20 141/82 95 Intake and Output 11/04/16 11/04/16 11/05/16 08:00 16:00 00:00 Intake Total 580 ml 960 ml 980 ml Balance 580 ml 960 ml 980 ml Assessment & Plan Problem List: (1) Bipolar affective disorder, current episode manic Assessment & Plan: Patient continues to show acute symptomatology of [place] consisting of disorganized behavior, psychomotor agitation, hyperactivity, internal stimulation. Patient also has episodic confusion and disorientation, along with some autonomic instability, elevated CPK, AST ALT, which wonder of still some residual or symptoms of NMS Also elevated THS (TSH 16.7, CPK 1013, AST 61 ALT 41. Her lithium level is 0.5. ) Raising the question of mood instability induced by hypothyroidism However, would continue aggressive medical treatment, we'll continue working together with hospitalist Will increase lithium to 600 mg twice a day, monitor closely symptoms of lithium toxicity Try to avoid as much as possible antipsychotics. ICD Code: F31.9 Assessment & Plan Estimated LOS: days Justification for Cont. Inpt. Patient is still acutely manic, very disorganized, intrusive, hyperactive, she needs to continue psychiatric hospitalization for stabilization. Problem Qualifiers (1) Bipolar affective disorder, current episode manic: Dwayne You MD Nov 05, 2016 12:16
[2016-11-05 12:18] LABS: BICARBONATE 23.2 MEQ/L (21.0-32.0); MAGNESIUM 2.4 MG/DL (1.5-2.5); POTASSIUM 4.3 MEQ/L (3.5-5.1)
--- NOTE | 2016-11-05 15:11 | RADRPT ---
EXAM DATE/TIME: 11/05/2016 12:20 [facility] COMPARISON: No previous studies available for comparison. INDICATIONS : Cough MEDICAL HISTORY : None. manic depressive disorder, bipolar disorder SURGICAL HISTORY : None. ENCOUNTER: Subsequent ACUITY: 1 week PAIN SCORE: Non-responsive. LOCATION: chest FINDINGS: Examinations performed in a chair. There is mild elevation of the left hemidiaphragm and associated crowding of the bronchopulmonary markings. No definite infiltrates seen. No focal areas of consolid ation. The heart is normal in size. The central bronchial markings are fairly well delineated. Oss eous structures are grossly intact. CONCLUSION: No infiltrates seen. Billy Carrillo MD on November 05, 2016 at 15:09 Board Certified Radiologist. This report was verified electronically.
[2016-11-05 18:00] VITALS: BP 130/70; PULSE 100; RESP 18; TEMP 98.2; O2SAT 95
[2016-11-05] MEDS: REMOVE OLD NICOTINE PATCH T-DERMAL SCH (21:00)
[2016-11-05] MEDS ORDERED: MAGNESIUM OXIDE 400 MG TAB PO ONE (22:15)
[2016-11-06 06:00] VITALS: BP 130/95; PULSE 86; RESP 12; TEMP 97.6; O2SAT 97
[2016-11-06] MEDS: LEVOTHYROXINE SODIUM 200 MCG TAB PO SCH (06:04)
[2016-11-06] MEDS: LEVOTHYROXINE SODIUM 25 MCG TAB PO SCH (06:04)
[2016-11-06] MEDS: INSULIN ASPART SUPPLEMENTAL SCALE SQ SCH ×4 (06:09→21:00)
[2016-11-06] MEDS: NICOTINE 21 MG/24 HR PATCH T-DERMAL SCH (09:00)
[2016-11-06] MEDS: VALPROIC ACID 250 MG CAP PO SCH ×2 (09:54→21:45)
[2016-11-06] MEDS: LORazepam 2 MG TAB PO SCH ×2 (09:54→21:45)
[2016-11-06] MEDS: MAGNESIUM OXIDE 400 MG TAB PO SCH ×2 (09:55→21:45)
[2016-11-06] MEDS: LITHIUM CARBONATE 300 MG TAB PO SCH ×2 (09:55→21:00)
[2016-11-06] MEDS: metFORMIN HCL 500 MG TAB PO SCH ×2 (09:55→17:23)
--- NOTE | 2016-11-06 10:04 | HHI.PR ---
Subjective Remarks Follow-up visit on patient with NMS, DM 2, HLD and bipolar disorder. Patient seen and examined today. She appears much more sedated this morning. Opened her eyes but only briefly otherwise won't follow commands and will not answer questions. Objective Vitals Vital Signs Date Time Temp Pulse Resp B/P Pulse Ox O2 Delivery O2 Flow Rate FiO2 11/05/16 18:00 98.2 100 18 130/70 95 I/O 11/05/16 11/05/16 11/05/16 11/06/16 11/06/16 11/06/16 07:00 15:00 23:00 07:00 15:00 23:00 Intake Total 240 ml 480 ml 240 ml 1200 ml Balance 240 ml 480 ml 240 ml 1200 ml Intake Oral 240 ml 480 ml 240 ml 1200 ml # Voids 1 1 4 # Bowel Movements 0 Result Diagram: 11/05/16 1040 11/05/16 1040 Objective Remarks GENERAL: This is an obese, middle-aged white female, no acute distress. Sedated. SKIN: Mild edema right second and third toes, no pain to palpation. HEAD: Atraumatic. Normocephalic. No temporal or scalp tenderness. EYES: EOMI. CARDIOVASCULAR: Regular rate and rhythm without murmurs, gallops, or rubs. RESPIRATORY: CTA bilaterally. Breath sounds equal bilaterally. No wheezing noted. GASTROINTESTINAL: Abdomen soft, non-tender, nondistended. Bowel sounds hypoactive 4. MUSCULOSKELETAL: Extremities without clubbing, cyanosis, trace bilateral lower extremity edema. No joint tenderness, effusion, or edema noted. Left elbow abrasion, ROM within normal. NEUROLOGICAL: Sedated. Medications and IVs Current Medications Medications (Trade) Dose Ordered Sig/Jason Route Start Time Stop Time Status Last Admin (Ativan) 1 mg Q6H PRN PO 10/30/16 13:45 11/03/16 13:20 (Ativan Inj) 1 mg Q6H PRN IM 10/30/16 13:45 11/04/16 23:27 (Tylenol) 650 mg Q4H PRN PO 10/30/16 13:45 10/31/16 03:12 (Milk Of Magnesia Liq) 30 ml DAILY PRN PO 10/30/16 13:45 (Mag-Al Plus Susp Liq) 30 ml Q6H PRN PO 10/30/16 13:45 (Habitrol 21 Mg Patch.24 Hr) 1 patch DAILY T-DERMAL 10/30/16 14:00 11/03/16 08:17 Miscellaneous Information 1 HS T-DERMAL 10/30/16 21:00 11/03/16 21:00 (Synthroid) 25 mcg DAILY@0600 PO 10/31/16 06:00 11/06/16 06:04 (Synthroid) 200 mcg DAILY@0600 PO 10/31/16 06:00 11/06/16 06:04 (Glucophage) 1,000 mg BIDPC PO 10/30/16 18:00 11/05/16 17:25 (Ventolin Hfa Inh) 2 puff Q4H PRN INH 10/30/16 16:59 (D50w (Vial) Inj) 25 ml UNSCH PRN IV PUSH 10/31/16 15:15 (Glucagon Inj) 1 mg UNSCH PRN OTHER 10/31/16 15:15 (Ambien) 10 mg HS PRN PO 11/02/16 11:30 11/04/16 22:02 (Pill Splitter) 1 ea UNSCH PRN OTHER 11/03/16 10:15 (Ativan) 2 mg BID PO 11/04/16 21:00 11/05/16 20:46 (Depakene) 250 mg Q12HR PO 11/04/16 13:15 11/05/16 21:00 (Lithotabs) 600 mg Q12HR PO 11/05/16 21:00 11/05/16 20:47 (Mag-Ox) 400 mg Q12HR PO 11/06/16 09:00 A/P Problem List: (1) Bipolar disorder, current episode mixed ICD Code: F31.60 Status: Acute (2) Neuroleptic malignant syndrome ICD Code: G21.0 Status: Acute (3) DM (diabetes mellitus) ICD Code: E11.9 Status: Chronic (4) HLD (hyperlipidemia) ICD Code: E78.5 Status: Acute Assessment and Plan Patient is a 46-year-old female with primary medical history of anxiety, depression, bipolar disorder, schizophrenia, DM 2 who came in to the hospital via EMS secondary to increased confusion, not acting right, questionable suicidal ideation. As per records, patient was nonverbal and unable to provide history during the time of admission. She was admitted for acute encephalopathy , delirium, urinary tract infection. During the course of her hospitalization patient had severe agitation when she has needed vest and 4-point Restraints. She was seen by neurologist for possible neuroleptic malignant syndrome, she was given IV Dantrolene, with significant improvement in rigidity and stiffness. CT of the head was done with no acute intracranial disease. EEG was done negative for seizures. Patient was also treated with sepsis, urinary tract infection given multiple antibiotics and now switched to Bactrim by mouth. She is now admitted to medical psych unit for further evaluation. Consulted for medical management. Schizophrenia, psychosis, bipolar, Insomnia, manic - managed by psychiatry team - Unable to give antipsychotics for 2 weeks status post NMS - lithium dose increased to 600mg BID. Monitor closely for symptoms of lithium toxicity. [place] level ordered for today due to increased sedation today. Cough - yesterday with rhonchi on exam - appears resolved - CXR personally interpreted and no e/o infiltrate Status post fall, left elbow abrasion - No complaints of left elbow pain - Ice on and off - Patient declines x-ray right now. If increasing pain, discussed with nurse to notify provider, x-ray will be ordered. Metabolic encephalopathy -Most likely multifocal factorial due to Neuroleptic malignant syndrome and UTI. -CT scan of the head was negative. -EEG 10/27: Showing possible left temporal lobe epileptiform activity. The repeat EEG was normal. -Resolved. History of recent Neuroleptic malignant syndrome -Neurologist and psychiatrist were consulted. -Patient was given 100 mg IV dantrolene with significant improvement in rigidity/stiffness in the inpatient setting. -No medications at this time other than when necessary Ativan. -She is asymptomatic at the moment. UTI due to Escherichia coli - Initially treated with Rocephin and that was changed to cefepime. - Completed course of Bactrim DM 2 - Blood sugars well controlled - Metformin 1000 mg twice a day - Insulin sliding scale, monitor BG before meals/at bedtime - hemoglobin A1c 6.1 - Monitor for hypoglycemia Hypothyroidism - On levothyroxine 225 g daily - Elevated TSH with normal T4, low T3. Adequate T4 concentrations, May benefit with addition of T3 replacement. - Recommend to see dance director as an outpatient for additional T3 replacement. [place] treatment for psychiatric disease may contribute to hypothyroidism. [place] level 0.5. HLD - ASCVD 10 year risk 3.2%, recommended for moderate intensity statin - Discussed with patient recommendation for statin use. Discuss risks and benefits with patient. In agreement with plan. - Lipitor 20 mg daily Hypokalemia - resolved - continue with potassium replacement - Magnesium level 2.4 - Continue to monitor. Repeat lab pending. Mild transaminitis secondary to rhabdomyolysis - AST 48, ALT 61 - continue to monitor Rhabdomyolysis - possible dehydration, ?NMS, restraint use - started on IVF. IVF held last night due to IV infiltrating. - repeat CPK improved 1013 -> 676 -> pending Diarrhea - possibly secondary from magnesium oxide use. - Resolved DVT prop ambulatory Discussed with patient, nursing staff Written by Lacy Hamilton PA-C acting as scribe for Dr. Garrett on 11/06/16 at 10:00. All or portions of this note were transcribed by scribe Lacy Hamilton PA-C. I, Dr. Tripp Garrett personally performed the history, physical exam, and medical decision making; and confirmed the accuracy of the information in the transcribed note. Authenticated by Dr. Tripp Garrett on 11/06/16 at 16:38. Lacy Hamilton Nov 06, 2016 10:04 Tripp Garrett MD Nov 06, 2016 16:39
--- NOTE | 2016-11-06 13:45 | HHI.PYPN ---
Subjective Remarks Patient is able psychiatric reevaluation today, she is found sitting in a chair , she is calm, superficially cooperative, distant, Confused, but reports feeling better, asking why she is is still here and not at home, she is fully oriented 3. No restlessness, agitation, no disruptive behavior, pressured speech, pressing at this moment, labs and vital signs reviewed, no significant abnormalities noted. CPK continues trending down. Nurses report improvement in restlessness and disorganized behavior, but patient continues to be insomniac at night, with very few hours of sleep. No stiffness, tremors, rigidity, observed at this moment. Review of Systems Other No somatic complaints Objective Alert: Yes [place]: Person, Date Mood: Agitated, Other (irritable) Affect: Labile, Manic Memory Intact: Immediate, Recent, Remote Hallucinations: Visual (patient has reported seeing snakes and dogs in her room ), Other (denies AVH) Delusions: Yes (paranoid type) Delusion Type: Paranoid, Other Suicidal: Ideation (denies SI) Homicidal: Ideation (denies HI) Insight/Judgment Poor Vitals/IOs Vital Signs Date Time Temp Pulse Resp B/P Pulse Ox O2 Delivery O2 Flow Rate FiO2 11/05/16 18:00 98.2 100 18 130/70 95 Intake and Output 11/05/16 11/05/16 11/06/16 08:00 16:00 00:00 Intake Total 240 ml 480 ml 1440 ml Balance 240 ml 480 ml 1440 ml Assessment & Plan Problem List: (1) Bipolar affective disorder, current episode manic Assessment & Plan: Patient continues to show disorganized behavior and speech, improved since yesterday. Will increase Depakote to 250 a.m. and 500 mg at bedtime Continue lithium 600 mg twice a day Would continue to avoid anti-dopaminergic drugs due to reason neuroleptic malignant syndrome ICD Code: F31.9 Assessment & Plan Estimated LOS: days Justification for Cont. Inpt. Patient is to continue psychiatric hospitalization for stabilization of manic symptoms and psychosis Problem Qualifiers (1) Bipolar affective disorder, current episode manic: Dwayne You MD Nov 06, 2016 13:45
[2016-11-06 14:53] LABS: ALKALINE PHOSPHATASE 43 U/L (45-117); ALT (GPT) 47 U/L (10-53); ANION GAP 11 MEQ/L (5-15); AST (GOT) 31 U/L (15-37); BICARBONATE 24.5 MEQ/L (21.0-32.0); BLOOD UREA NITROGEN 14 MG/DL (7-18); CHLORIDE 105 MEQ/L (98-107); GLOMERULAR FILTRATION RATE 59 ML/MIN (>89); POTASSIUM 4.3 MEQ/L (3.5-5.1); SODIUM (NA) 140 MEQ/L (136-145); TOTAL BILIRUBIN ADULT 0.6 MG/DL (0.2-1.0)
[2016-11-06 15:19] LABS: CKMB 20.9 NG/ML (0.5-3.6)
[2016-11-06] MEDS: REMOVE OLD NICOTINE PATCH T-DERMAL SCH (21:00)
[2016-11-07] MEDS: LEVOTHYROXINE SODIUM 25 MCG TAB PO SCH (06:00)
[2016-11-07] MEDS: LEVOTHYROXINE SODIUM 200 MCG TAB PO SCH (06:00)
[2016-11-07 06:07] VITALS: BP 126/65; PULSE 101; RESP 17; TEMP 98.2; O2SAT 96
[2016-11-07] MEDS: INSULIN ASPART SUPPLEMENTAL SCALE SQ SCH ×4 (06:24→20:33)
[2016-11-07] MEDS: LITHIUM CARBONATE 300 MG TAB PO SCH ×2 (09:00→20:33)
[2016-11-07] MEDS: NICOTINE 21 MG/24 HR PATCH T-DERMAL SCH (09:40)
[2016-11-07] MEDS: LORazepam 2 MG TAB PO SCH ×2 (09:41→20:32)
[2016-11-07] MEDS: metFORMIN HCL 500 MG TAB PO SCH ×2 (09:41→18:00)
[2016-11-07] MEDS: REMOVE OLD NICOTINE PATCH T-DERMAL SCH (09:41)
[2016-11-07] MEDS: VALPROIC ACID 250 MG CAP PO SCH ×2 (09:42→20:32)
[2016-11-07] MEDS: MAGNESIUM OXIDE 400 MG TAB PO SCH ×2 (09:43→20:32)
--- NOTE | 2016-11-07 11:20 | HHI.PR ---
Subjective Remarks Follow-up visit on patient with NMS, DM 2, HLD and bipolar disorder. Patient seen today. More awake and alert. Able to follows command. Slow thought process. But able to respond with questions. Patient does not remember how she got to the hospital, or events prior to today. Denies pain and discomfort. Denies SOB/ dyspnea. Denies chest pain, palpitations, headaches, dizziness. Denies fevers, chills, n/v/d. As per nursing, patient was able to sleep overnight and noted that this is the first time that she actually slept while she is in the unit. Objective Vitals Vital Signs Date Time Temp Pulse Resp B/P Pulse Ox O2 Delivery O2 Flow Rate FiO2 11/07/16 06:07 98.2 101 17 126/65 96 I/O 11/06/16 11/06/16 11/06/16 11/07/16 11/07/16 11/07/16 07:00 15:00 23:00 07:00 15:00 23:00 Intake Total 1200 ml 1200 ml Balance 1200 ml 1200 ml Intake Oral 1200 ml 1200 ml # Voids 4 2 # Bowel Movements 0 Result Diagram: 11/05/16 1040 11/06/16 1417 Imaging Last Impressions Chest X-Ray 11/05/16 0000 Signed Impressions: Service Date/Time: October 12:20 - CONCLUSION: No infiltrates seen. Billy Carrillo MD Objective Remarks GENERAL: This is an obese, middle-aged white female, no acute distress, flat affect SKIN: Mild edema right second and third toes, no pain to palpation. HEAD: Atraumatic. Normocephalic. No temporal or scalp tenderness. EYES: Pupils equal round and reactive. No scleral icterus. No injection or drainage. ENT: Nose without bleeding. Throat without erythema. Uvula midline. Airway patent. NECK: Trachea midline. No JVD or lymphadenopathy. Supple, nontender, no meningeal signs. CARDIOVASCULAR: Regular rate and rhythm without murmurs, gallops, or rubs. RESPIRATORY: Clear to auscultation. Breath sounds equal bilaterally. No wheezes , rales, or rhonchi. GASTROINTESTINAL: Abdomen soft, non-tender, nondistended. Bowel sounds hypoactive 4. No CVA tenderness. MUSCULOSKELETAL: Extremities without clubbing, cyanosis, trace bilateral lower extremity edema. No joint tenderness, effusion, or edema noted. Left elbow abrasion, R OM within normal. NEUROLOGICAL: Awake and alert. Flat affect. Able to follow commands. Slow thought process. Slow speech response. Motor and sensory grossly within normal limits. A/P Problem List: (1) Bipolar disorder, current episode mixed ICD Code: F31.60 Status: Acute (2) Neuroleptic malignant syndrome ICD Code: G21.0 Status: Acute (3) DM (diabetes mellitus) ICD Code: E11.9 Status: Chronic (4) HLD (hyperlipidemia) ICD Code: E78.5 Status: Acute Assessment and Plan Patient is a 46-year-old female with primary medical history of anxiety, depression, bipolar disorder, schizophrenia, DM 2 who came in to the hospital via EMS secondary to increased confusion, not acting right, questionable suicidal ideation. As per records, patient was nonverbal and unable to provide history during the time of admission. She was admitted for acute encephalopathy , delirium, urinary tract infection. During the course of her hospitalization patient had severe agitation when she has needed vest and 4-point Restraints. She was seen by neurologist for possible neuroleptic malignant syndrome, she was given IV Dantrolene, with significant improvement in rigidity and stiffness. CT of the head was done with no acute intracranial disease. EEG was done negative for seizures. Patient was also treated with sepsis, urinary tract infection given multiple antibiotics and now switched to Bactrim by mouth. She is now admitted to medical psych unit for further evaluation. Consulted for medical management. Schizophrenia, psychosis, bipolar -managed by psychiatry team Insomnia, manic - Unable to give antipsychotics for 2 weeks status post NMS - lithium dose increased to 600mg BID. Monitor closely for symptoms of lithium toxicity. [place] level I.2 11/06/16 Cough - Chest x-ray with no infiltrates seen - No symptoms today Elevated CK, CK-MB - Monitor trend. Improved. - Encourage by mouth fluid intake. Status post fall, left elbow abrasion - Ice on and off - Patient declines x-ray right now. If increasing pain, discussed with nurse to notify provider, x-ray will be ordered. - Risk for falls. Maintain fall precaution. Metabolic encephalopathy -Most likely multifocal factorial due to Neuroleptic malignant syndrome and UTI. -CT scan of the head was negative. -EEG 10/27: Showing possible left temporal lobe epileptiform activity. The repeat EEG was normal. -Resolved. Possible Neuroleptic malignant syndrome -Neurologist and psychiatrist were consulted. -Patient was given 100 mg IV dantrolene with significant improvement in rigidity/stiffness in the inpatient setting. -No medications at this time other than when necessary Ativan. -She is asymptomatic at the moment. UTI due to Escherichia coli - Initially treated with Rocephin and that was changed to cefepime. - Completed Bactrim 11/03/16 DM 2 - Metformin 1000 mg twice a day - Insulin sliding scale, monitor BG before meals/at bedtime - hemoglobin A1c 6.1 - Monitor for hypoglycemia Hypothyroidism - On levothyroxine 225 g daily - Elevated TSH with normal T4, low T3. Adequate T4 concentrations, May benefit with addition of T3 replacement. - Recommend to see counter weigher as an outpatient for additional T3 replacement. [place] treatment for psychiatric disease may contribute to hypothyroidism. HLD - ASCVD 10 year risk 3.2%, recommended for moderate intensity statin - Discussed with patient recommendation for statin use. Discuss risks and benefits with patient. In agreement with plan. - Lipitor 20 mg daily Hypokalemia - Potassium replacement - Start potassium 10 MEQ daily - Improved. Hypomagnesemia - On Mag-Ox twice a day - Mag level is now within normal. Mag 2.1 Mild transaminitis secondary to rhabdomyolysis - AST 48, ALT 61 - continue to monitor Diarrhea - Check C. difficile if continues to have diarrhea. -Resolved DVT prop ambulatory Discussed with patient, nursing Written by Tarik Mistry, on behalf of Dr. Millard on 11/07/16 at 11:19. All or portions of this note were transcribed by sachin BEEBE. I, Dr. Earnestine Millard personally performed the history, physical exam, and medical decision making; and confirmed the accuracy of the information in the transcribed note. Authenticated by Dr. Earnestine Millard on 11/07/16 at 11:19. Tarik Owen Nov 07, 2016 11:19 Earnestine Millard MD Nov 07, 2016 15:51
--- NOTE | 2016-11-07 14:19 | HHI.PYPN ---
Subjective Remarks Patient seen on unit with floor staff, chart review, patient overall compliant medications. Patient through somewhat disorganized confused pleasant with me appears oriented to place time and situation. For now continue treatment Review of Systems Except as stated in HPI: all other systems reviewed are Neg Objective Alert: Yes [place]: Person, Date Mood: Agitated, Other (irritable) Affect: Labile, Manic Memory Intact: Immediate, Recent, Remote Hallucinations: Visual (patient has reported seeing snakes and dogs in her room ), Other (denies AVH) Delusions: Yes (paranoid type) Delusion Type: Paranoid, Other Suicidal: Ideation (denies SI) Homicidal: Ideation (denies HI) Insight/Judgment Poor Labs Test 11/06/16 14:17 Sodium Level 140 MEQ/L Potassium Level 4.3 MEQ/L Chloride Level 105 MEQ/L Carbon Dioxide Level 24.5 MEQ/L Anion Gap 11 MEQ/L Blood Urea Nitrogen 14 MG/DL Creatinine 1.02 MG/DL Estimat Glomerular Filtration 59 ML/MIN Rate Random Glucose 106 MG/DL Calcium Level 9.4 MG/DL Magnesium Level 2.1 MG/DL Total Bilirubin 0.6 MG/DL Aspartate Amino Transf 31 U/L (AST/SGOT) Alanine Aminotransferase 47 U/L (ALT/SGPT) Alkaline Phosphatase 43 U/L Total Creatine Kinase 415 U/L Creatine Kinase MB 20.9 NG/ML Creatine Kinase MB % 5.0 % Total Protein 6.9 GM/DL Albumin 3.5 GM/DL [place] Level 1.2 MEQ/L Vitals/IOs Vital Signs Date Time Temp Pulse Resp B/P Pulse Ox O2 Delivery O2 Flow Rate FiO2 11/07/16 06:07 98.2 101 17 126/65 96 Intake and Output 11/06/16 11/06/16 11/07/16 08:00 16:00 00:00 Intake Total 240 ml 960 ml Balance 240 ml 960 ml Assessment & Plan Problem List: (1) Bipolar affective disorder, current episode manic ICD Code: F31.9 Assessment & Plan Estimated LOS: days patient continues somewhat psychotic vague visual hallucinations. Compliant medications. Still somewhat diffusely confused. Justification for Cont. Inpt. This time patient decompensate with placed in a lower level of care Discharge Planning To be determined Problem Qualifiers (1) Bipolar affective disorder, current episode manic: Qualified Code: F31.2 - Bipolar affective disorder, currently manic, severe, with psychotic features Roberto Samson MD Nov 07, 2016 14:18
[2016-11-07 19:00] VITALS: BP 120/62; PULSE 101; RESP 18; TEMP 99.2; O2SAT 97
[2016-11-08] MEDS: LEVOTHYROXINE SODIUM 200 MCG TAB PO SCH (05:53)
[2016-11-08] MEDS: LEVOTHYROXINE SODIUM 25 MCG TAB PO SCH (05:53)
[2016-11-08] MEDS: INSULIN ASPART SUPPLEMENTAL SCALE SQ SCH ×4 (06:15→20:22)
[2016-11-08 06:26] VITALS: BP 132/62; PULSE 75; RESP 18; TEMP 98; O2SAT 95
--- NOTE | 2016-11-08 08:30 | HHI.PYPN ---
Subjective Remarks Patient seen in her room with floor staff patient somewhat calmer today denies voices or visions, denies suicidality. Though there appears to be some mild thought blocking noted with this lady Is compliant with her medications. [place] level drawn on 11/06 is 1.2 will recheck lithium level in a.m. for now continue treatment Review of Systems Except as stated in HPI: all other systems reviewed are Neg Objective Alert: Yes [place]: Person, Date Mood: Agitated, Other (irritable) Affect: Labile, Manic Memory Intact: Immediate, Recent, Remote Hallucinations: Visual (patient has reported seeing snakes and dogs in her room ), Other (denies AVH) Delusions: Yes (paranoid type) Delusion Type: Paranoid, Other Suicidal: Ideation (denies SI) Homicidal: Ideation (denies HI) Insight/Judgment Poor Vitals/IOs Vital Signs Date Time Temp Pulse Resp B/P Pulse Ox O2 Delivery O2 Flow Rate FiO2 11/08/16 06:26 98.0 75 18 132/62 95 Intake and Output 11/07/16 11/07/16 11/08/16 08:00 16:00 00:00 Intake Total 560 ml 1120 ml Balance 560 ml 1120 ml Assessment & Plan Problem List: (1) Bipolar affective disorder, current episode manic ICD Code: F31.9 Assessment & Plan Estimated LOS: days patient continues calm compliant medications, with some mild thought blocking noted compliant medications Justification for Cont. Inpt. At this time patient will decompensate if placed in a lower level of care Discharge Planning To be determined Problem Qualifiers (1) Bipolar affective disorder, current episode manic: Qualified Code: F31.2 - Bipolar affective disorder, currently manic, severe, with psychotic features Roberto Samson MD Nov 08, 2016 08:29
[2016-11-08] MEDS: NICOTINE 21 MG/24 HR PATCH T-DERMAL SCH (09:00)
[2016-11-08] MEDS: VALPROIC ACID 250 MG CAP PO SCH ×2 (09:40→20:21)
[2016-11-08] MEDS: LITHIUM CARBONATE 300 MG TAB PO SCH ×2 (09:40→20:21)
[2016-11-08] MEDS: MAGNESIUM OXIDE 400 MG TAB PO SCH ×2 (09:40→20:22)
[2016-11-08] MEDS: metFORMIN HCL 500 MG TAB PO SCH ×2 (09:41→18:00)
[2016-11-08] MEDS: LORazepam 2 MG TAB PO SCH ×2 (09:41→20:22)
--- NOTE | 2016-11-08 11:12 | HHI.PR ---
Subjective Remarks Follow-up visit on patient with NMS, DM 2, HLD and bipolar disorder. Patient seen today. States she is sleeping better now. Able to follows command. Slow thought process. Able to respond with questions. Denies pain and discomfort. Denies SOB/ dyspnea. Denies chest pain, palpitations, headaches, dizziness. Denies fevers, chills, n/v/d. As per nursing, no acute issues overnight. Objective Vitals Vital Signs Date Time Temp Pulse Resp B/P Pulse Ox O2 Delivery O2 Flow Rate FiO2 11/08/16 06:26 98.0 75 18 132/62 95 11/07/16 19:00 99.2 101 18 120/62 97 I/O 11/07/16 11/07/16 11/07/16 11/08/16 11/08/16 11/08/16 07:00 15:00 23:00 07:00 15:00 23:00 Intake Total 560 ml 1120 ml 240 ml Balance 560 ml 1120 ml 240 ml Intake Oral 560 ml 1120 ml 240 ml # Voids 1 Result Diagram: 11/05/16 1040 11/06/16 1417 Imaging Last Impressions Chest X-Ray 11/05/16 0000 Signed Impressions: Service Date/Time: October 12:20 - CONCLUSION: No infiltrates seen. Billy Carrillo MD Objective Remarks GENERAL: This is an obese, middle-aged white female, no acute distress, flat affect SKIN: Mild edema right second and third toes, no pain to palpation. HEAD: Atraumatic. Normocephalic. No temporal or scalp tenderness. EYES: Pupils equal round and reactive. No scleral icterus. No injection or drainage. ENT: Nose without bleeding. Throat without erythema. Uvula midline. Airway patent. NECK: Trachea midline. No JVD or lymphadenopathy. Supple, nontender, no meningeal signs. CARDIOVASCULAR: Regular rate and rhythm without murmurs, gallops, or rubs. RESPIRATORY: Clear to auscultation. Breath sounds equal bilaterally. No wheezes , rales, or rhonchi. GASTROINTESTINAL: Abdomen soft, non-tender, nondistended. Bowel sounds hypoactive 4. No CVA tenderness. MUSCULOSKELETAL: Extremities without clubbing, cyanosis, trace bilateral lower extremity edema. No joint tenderness, effusion, or edema noted. Left elbow abrasion, R OM within normal. NEUROLOGICAL: Awake and alert. Flat affect. Able to follow commands. Slow thought process. Slow speech response. Motor and sensory grossly within normal limits. A/P Problem List: (1) Bipolar disorder, current episode mixed ICD Code: F31.60 Status: Acute (2) Neuroleptic malignant syndrome ICD Code: G21.0 Status: Acute (3) DM (diabetes mellitus) ICD Code: E11.9 Status: Chronic (4) HLD (hyperlipidemia) ICD Code: E78.5 Status: Acute Assessment and Plan Patient is a 46-year-old female with primary medical history of anxiety, depression, bipolar disorder, schizophrenia, DM 2 who came in to the hospital via EMS secondary to increased confusion, not acting right, questionable suicidal ideation. As per records, patient was nonverbal and unable to provide history during the time of admission. She was admitted for acute encephalopathy , delirium, urinary tract infection. During the course of her hospitalization patient had severe agitation when she has needed vest and 4-point Restraints. She was seen by neurologist for possible neuroleptic malignant syndrome, she was given IV Dantrolene, with significant improvement in rigidity and stiffness. CT of the head was done with no acute intracranial disease. EEG was done negative for seizures. Patient was also treated with sepsis, urinary tract infection given multiple antibiotics and now switched to Bactrim by mouth. She is now admitted to medical psych unit for further evaluation. Consulted for medical management. Schizophrenia, psychosis, bipolar -managed by psychiatry team Insomnia, manic - Unable to give antipsychotics for 2 weeks status post NMS - lithium dose increased to 600mg BID. Monitor closely for symptoms of lithium toxicity. [place] level I.2 11/06/16 Cough - Chest x-ray with no infiltrates seen - No symptoms today Elevated CK, CK-MB - Monitor trend. Improved. - Encourage by mouth fluid intake. Status post fall, left elbow abrasion - Ice on and off - Patient declines x-ray right now. If increasing pain, discussed with nurse to notify provider, x-ray will be ordered. - Risk for falls. Maintain fall precaution. Metabolic encephalopathy -Most likely multifocal factorial due to Neuroleptic malignant syndrome and UTI. -CT scan of the head was negative. -EEG 10/27: Showing possible left temporal lobe epileptiform activity. The repeat EEG was normal. -Resolved. Possible Neuroleptic malignant syndrome -Neurologist and psychiatrist were consulted. -Patient was given 100 mg IV dantrolene with significant improvement in rigidity/stiffness in the inpatient setting. -No medications at this time other than when necessary Ativan. -She is asymptomatic at the moment. UTI due to Escherichia coli - Initially treated with Rocephin and that was changed to cefepime. - Completed Bactrim 11/03/16 DM 2 - Metformin 1000 mg twice a day - Insulin sliding scale, monitor BG before meals/at bedtime - hemoglobin A1c 6.1 - Monitor for hypoglycemia Hypothyroidism - On levothyroxine 225 g daily - Elevated TSH with normal T4, low T3. Adequate T4 concentrations, May benefit with addition of T3 replacement. - Recommend to see adult education professional as an outpatient for additional T3 replacement. [place] treatment for psychiatric disease may contribute to hypothyroidism. HLD - ASCVD 10 year risk 3.2%, recommended for moderate intensity statin - Discussed with patient recommendation for statin use. Discuss risks and benefits with patient. In agreement with plan. - Lipitor 20 mg daily Hypokalemia - Potassium replacement - Start potassium 10 MEQ daily - Improved. Hypomagnesemia - On Mag-Ox twice a day - Mag level is now within normal. Mag 2.1 Mild transaminitis secondary to rhabdomyolysis - AST 48, ALT 61 - continue to monitor Diarrhea - Check C. difficile if continues to have diarrhea. -Resolved DVT prop ambulatory Discussed with patient, nursing Written by Tarik Mistry, acting as scribe for Dr. Millard on 11/08/16 at 11:11. All or portions of this note were transcribed by sachin BEEBE. I, Dr. Earnestine Millard personally performed the history, physical exam, and medical decision making; and confirmed the accuracy of the information in the transcribed note. Authenticated by Dr. Earnestine Millard on 11/08/16 at 11:11. Tarik Owen Nov 08, 2016 11:11 Earnestine Millard MD Nov 08, 2016 19:04
[2016-11-08 18:00] VITALS: BP 111/53; PULSE 92; RESP 18; TEMP 98.1; O2SAT 96
[2016-11-08 20:12] VITALS: BP 124/64; PULSE 98; RESP 18; TEMP 97.7; O2SAT 96
[2016-11-08] MEDS: REMOVE OLD NICOTINE PATCH T-DERMAL SCH (20:23)
[2016-11-09 06:04] VITALS: BP 121/71; PULSE 82; RESP 16; TEMP 98.5; O2SAT 98
[2016-11-09] MEDS: LEVOTHYROXINE SODIUM 25 MCG TAB PO SCH (06:06)
[2016-11-09] MEDS: LEVOTHYROXINE SODIUM 200 MCG TAB PO SCH (06:07)
[2016-11-09] MEDS: INSULIN ASPART SUPPLEMENTAL SCALE SQ SCH (06:07)
[2016-11-09] MEDS: NICOTINE 21 MG/24 HR PATCH T-DERMAL SCH (09:00)
[2016-11-09] MEDS: metFORMIN HCL 500 MG TAB PO SCH ×2 (09:24→17:33)
[2016-11-09] MEDS: VALPROIC ACID 250 MG CAP PO SCH ×2 (09:24→20:56)
[2016-11-09] MEDS: LORazepam 2 MG TAB PO SCH (09:24)
[2016-11-09] MEDS: LITHIUM CARBONATE 300 MG TAB PO SCH ×2 (09:25→20:57)
[2016-11-09] MEDS: MAGNESIUM OXIDE 400 MG TAB PO SCH ×2 (09:25→20:57)
--- NOTE | 2016-11-09 12:54 | HHI.PYPN ---
Subjective Remarks Patient seen for psychiatric reevaluation today, she was found sleeping in her bed, arousable, but sleepy, a little bit lethargic and distant. Patient states that she feels much better, she seems to be a little bit more organized, fully oriented 3, with some thought blocking and respiratory speech, but appropriately answering our questions, doesn't seem to be internally preoccupied , she denies suicidal and homicidal ideation, she denies visual and auditory hallucinations. Nurse in charge reports improvement in behavior and thought process, no agitation or aggressive behavior reported. Patient has been fully compliant with medications, no significant side effects visible. Review of Systems Other No somatic complaints Objective Alert: Yes Natalia: Person, Place, Date, Situation Mood: Calm Affect: Flat Memory Intact: Immediate, Recent, Remote Hallucinations: Visual (patient has reported seeing snakes and dogs in her room ), Other (denies AVH) Delusions: Yes (paranoid type) Delusion Type: Other (none elicited) Suicidal: Ideation (denies SI) Homicidal: Ideation (denies HI) Insight/Judgment Improved Labs Test 11/09/16 05:36 [place] Level 1.1 MEQ/L Vitals/IOs Vital Signs Date Time Temp Pulse Resp B/P Pulse Ox O2 Delivery O2 Flow Rate FiO2 11/09/16 06:04 98.5 82 16 121/71 98 Intake and Output 11/08/16 11/08/16 11/09/16 08:00 16:00 00:00 Intake Total 240 ml 120 ml 1200 ml Balance 240 ml 120 ml 1200 ml Assessment & Plan Problem List: (1) Bipolar affective disorder, current episode manic Assessment & Plan: [place] level today is 1.1, Depakote level ordered. Thought blocking and respiratory speech noticed, however no manic symptomatology observed. Patient is logical, coherent, relevant, oriented 3, is sleeping much better now. We will decrease Ativan to 1 mg twice a day. ICD Code: F31.9 Assessment & Plan Estimated LOS: days Justification for Cont. Inpt. Patient has a very high risk to decompensate out of an inpatient psychiatric structure Problem Qualifiers (1) Bipolar affective disorder, current episode manic: Qualified Code: F31.2 - Bipolar affective disorder, currently manic, severe, with psychotic features Dwayne You MD Nov 09, 2016 12:54
--- NOTE | 2016-11-09 14:34 | HHI.PR ---
Subjective Remarks Follow-up visit on patient with NMS, DM 2, HLD and bipolar disorder. Patient seen today. States she is doing well. Thought process is improved. Responds to questions appropriately. Denies pain and discomfort. Denies SOB/ dyspnea. Denies chest pain, palpitations, headaches, dizziness. Denies fevers, chills, n/ v/d. As per nursing, no acute issues overnight. Objective Vitals Vital Signs Date Time Temp Pulse Resp B/P Pulse Ox O2 Delivery O2 Flow Rate FiO2 11/09/16 06:04 98.5 82 16 121/71 98 11/08/16 20:12 97.7 98 18 124/64 96 11/08/16 18:00 98.1 92 18 111/53 96 I/O 11/08/16 11/08/16 11/08/16 11/09/16 11/09/16 11/09/16 07:00 15:00 23:00 07:00 15:00 23:00 Intake Total 360 ml 1200 ml 240 ml 1200 ml Balance 360 ml 1200 ml 240 ml 1200 ml Intake Oral 360 ml 1200 ml 240 ml 1200 ml # Voids 2 2 2 Result Diagram: 11/05/16 1040 11/06/16 1417 Imaging Last Impressions Chest X-Ray 11/05/16 0000 Signed Impressions: Service Date/Time: October 12:20 - CONCLUSION: No infiltrates seen. Billy Carrillo MD Objective Remarks GENERAL: This is an obese, middle-aged white female, no acute distress, flat affect SKIN: Mild edema right second and third toes, no pain to palpation. HEAD: Atraumatic. Normocephalic. No temporal or scalp tenderness. EYES: Pupils equal round and reactive. No scleral icterus. No injection or drainage. ENT: Nose without bleeding. Throat without erythema. Uvula midline. Airway patent. NECK: Trachea midline. No JVD or lymphadenopathy. Supple, nontender, no meningeal signs. CARDIOVASCULAR: Regular rate and rhythm without murmurs, gallops, or rubs. RESPIRATORY: Clear to auscultation. Breath sounds equal bilaterally. No wheezes , rales, or rhonchi. GASTROINTESTINAL: Abdomen soft, non-tender, nondistended. Bowel sounds hypoactive 4. No CVA tenderness. MUSCULOSKELETAL: Extremities without clubbing, cyanosis, trace bilateral lower extremity edema. No joint tenderness, effusion, or edema noted. Left elbow abrasion, R OM within normal. NEUROLOGICAL: Awake and alert. Flat affect. Able to follow commands. Slow thought process. Slow speech response. Motor and sensory grossly within normal limits. A/P Problem List: (1) Bipolar disorder, current episode mixed ICD Code: F31.60 Status: Acute (2) Neuroleptic malignant syndrome ICD Code: G21.0 Status: Acute (3) DM (diabetes mellitus) ICD Code: E11.9 Status: Chronic (4) HLD (hyperlipidemia) ICD Code: E78.5 Status: Acute Assessment and Plan Patient is a 46-year-old female with primary medical history of anxiety, depression, bipolar disorder, schizophrenia, DM 2 who came in to the hospital via EMS secondary to increased confusion, not acting right, questionable suicidal ideation. As per records, patient was nonverbal and unable to provide history during the time of admission. She was admitted for acute encephalopathy , delirium, urinary tract infection. During the course of her hospitalization patient had severe agitation when she has needed vest and 4-point Restraints. She was seen by neurologist for possible neuroleptic malignant syndrome, she was given IV Dantrolene, with significant improvement in rigidity and stiffness. CT of the head was done with no acute intracranial disease. EEG was done negative for seizures. Patient was also treated with sepsis, urinary tract infection given multiple antibiotics and now switched to Bactrim by mouth. She is now admitted to medical psych unit for further evaluation. Consulted for medical management. Schizophrenia, psychosis, bipolar -managed by psychiatry team Insomnia, manic - Unable to give antipsychotics for 2 weeks status post NMS - lithium dose increased to 600mg BID. Monitor closely for symptoms of lithium toxicity. [place] level I.2 --> 1.1 11/09/16 Cough - Chest x-ray with no infiltrates seen - No symptoms today Elevated CK, CK-MB - Monitor trend. Improved. - Encourage by mouth fluid intake. Status post fall, left elbow abrasion - Ice on and off - Patient declines x-ray right now. If increasing pain, discussed with nurse to notify provider, x-ray will be ordered. - Risk for falls. Maintain fall precaution. Metabolic encephalopathy -Most likely multifocal factorial due to Neuroleptic malignant syndrome and UTI. -CT scan of the head was negative. -EEG 10/27: Showing possible left temporal lobe epileptiform activity. The repeat EEG was normal. -Resolved. Possible Neuroleptic malignant syndrome -Neurologist and psychiatrist were consulted. -Patient was given 100 mg IV dantrolene with significant improvement in rigidity/stiffness in the inpatient setting. -No medications at this time other than when necessary Ativan. -She is asymptomatic at the moment. UTI due to Escherichia coli - Initially treated with Rocephin and that was changed to cefepime. - Completed Bactrim 11/03/16 DM 2 - Metformin 1000 mg twice a day - DC Insulin sliding scale, monitor BG before meals/at bedtime. Patient has not been given any coverage. Check blood sugar daily only. - hemoglobin A1c 6.1 - Monitor for hypoglycemia Hypothyroidism - On levothyroxine 225 g daily - Elevated TSH with normal T4, low T3. Adequate T4 concentrations, May benefit with addition of T3 replacement. - Recommend to see network solutions architect as an outpatient for additional T3 replacement. [place] treatment for psychiatric disease may contribute to hypothyroidism. HLD - ASCVD 10 year risk 3.2%, recommended for moderate intensity statin - Discussed with patient recommendation for statin use. Discuss risks and benefits with patient. In agreement with plan. - Lipitor 20 mg daily Hypokalemia - Potassium replacement - Start potassium 10 MEQ daily - Improved. Hypomagnesemia - On Mag-Ox twice a day - Mag level is now within normal. Mag 2.1 Mild transaminitis secondary to rhabdomyolysis - AST 48 --> 31, ALT 61 -->47 - Improved. Diarrhea - Check C. difficile if continues to have diarrhea. -Resolved DVT prop ambulatory Discussed with patient, nursing Written by Traik Mistry, acting as scribe for Dr. Millard on 11/09/16 at 14:33. All or portions of this note were transcribed by sachin BEEBE. I, Dr. Earnestine Millard personally performed the history, physical exam, and medical decision making; and confirmed the accuracy of the information in the transcribed note. Authenticated by Dr. Earnestine Millard on 11/09/16 at 14:33. Tarik Owen Nov 09, 2016 14:34 Earnestine Millard MD Nov 09, 2016 15:25
[2016-11-09 16:04] VITALS: BP 140/63; PULSE 101; RESP 18; TEMP 98.3; O2SAT 96
[2016-11-09 17:14] VITALS: BP 123/73; PULSE 93; RESP 18; TEMP 99; O2SAT 96
[2016-11-09] MEDS: REMOVE OLD NICOTINE PATCH T-DERMAL SCH (20:57)
[2016-11-09] MEDS: LORazepam 1 MG TAB PO SCH (20:58)
[2016-11-09] MEDS ORDERED: LORazepam 2 MG TAB PO SCH (21:00)
[2016-11-10 05:55] VITALS: BP 100/70; PULSE 88; RESP 18; TEMP 98.4; O2SAT 96
[2016-11-10] MEDS: LEVOTHYROXINE SODIUM 25 MCG TAB PO SCH (06:01)
[2016-11-10] MEDS: LEVOTHYROXINE SODIUM 200 MCG TAB PO SCH (06:02)
[2016-11-10] MEDS: NICOTINE 21 MG/24 HR PATCH T-DERMAL SCH (09:00)
[2016-11-10] MEDS: LITHIUM CARBONATE 300 MG TAB PO SCH ×2 (09:37→20:03)
[2016-11-10] MEDS: metFORMIN HCL 500 MG TAB PO SCH ×2 (09:37→18:00)
[2016-11-10] MEDS: MAGNESIUM OXIDE 400 MG TAB PO SCH ×2 (09:37→20:03)
[2016-11-10] MEDS: LORazepam 1 MG TAB PO SCH ×2 (09:38→20:03)
[2016-11-10] MEDS: VALPROIC ACID 250 MG CAP PO SCH ×2 (09:38→20:03)
--- NOTE | 2016-11-10 10:25 | HHI.PR ---
Subjective Remarks Follow-up visit on patient with NMS, DM 2, HLD and bipolar disorder. Patient seen and examined today. States she is doing very well this morning. Her only complaint is overall itching that is worse around the abdomen. She denies any chest pain or shortness of breath. No nausea, vomiting or abdominal pain. Reports that she is walking well and denies any pain or swelling of the lower extremities. Objective Vitals Vital Signs Date Time Temp Pulse Resp B/P Pulse Ox O2 Delivery O2 Flow Rate FiO2 11/10/16 05:55 98.4 88 18 100/70 96 11/09/16 17:14 99.0 93 18 123/73 96 11/09/16 16:04 98.3 101 18 140/63 96 I/O 11/09/16 11/09/16 11/09/16 11/10/16 11/10/16 11/10/16 07:00 15:00 23:00 07:00 15:00 23:00 Intake Total 240 ml 1200 ml 960 ml 240 ml Balance 240 ml 1200 ml 960 ml 240 ml Intake Oral 240 ml 1200 ml 960 ml 240 ml # Voids 2 2 3 1 Result Diagram: 11/06/16 1417 Imaging Last Impressions Chest X-Ray 11/05/16 0000 Signed Impressions: Service Date/Time: October 12:20 - CONCLUSION: No infiltrates seen. Billy Carrillo MD Objective Remarks GENERAL: This is an obese, middle-aged white female, no acute distress. Awake and alert. Lying in hospital bed. SKIN: Mild edema right second and third toes, no pain to palpation. No rash appreciated on body including abdomen. HEAD: Atraumatic. Normocephalic. No temporal or scalp tenderness. EYES: EOMI. CARDIOVASCULAR: Regular rate and rhythm without murmurs, gallops, or rubs. RESPIRATORY: CTA bilaterally. Breath sounds equal bilaterally. No wheezing noted. GASTROINTESTINAL: Abdomen soft, non-tender, nondistended. Bowel sounds hypoactive 4. MUSCULOSKELETAL: Extremities without clubbing, cyanosis, trace bilateral lower extremity edema. No joint tenderness, effusion, or edema noted. Left elbow abrasion, ROM within normal. NEUROLOGICAL: Awake and alert. Flat affect. Able to follow commands. Slow thought process. Able to move all 4 extremities. Medications and IVs Current Medications Medications (Trade) Dose Ordered Sig/Jason Route Start Time Stop Time Status Last Admin (Ativan) 1 mg Q6H PRN PO 10/30/16 13:45 11/03/16 13:20 (Ativan Inj) 1 mg Q6H PRN IM 10/30/16 13:45 11/04/16 23:27 (Tylenol) 650 mg Q4H PRN PO 10/30/16 13:45 10/31/16 03:12 (Milk Of Magnesia Liq) 30 ml DAILY PRN PO 10/30/16 13:45 (Mag-Al Plus Susp Liq) 30 ml Q6H PRN PO 10/30/16 13:45 (Habitrol 21 Mg Patch.24 Hr) 1 patch DAILY T-DERMAL 10/30/16 14:00 11/09/16 09:00 Miscellaneous Information 1 HS T-DERMAL 10/30/16 21:00 11/07/16 09:41 (Synthroid) 25 mcg DAILY@0600 PO 10/31/16 06:00 11/10/16 06:01 (Synthroid) 200 mcg DAILY@0600 PO 10/31/16 06:00 11/10/16 06:02 (Glucophage) 1,000 mg BIDPC PO 10/30/16 18:00 11/10/16 09:37 (Ventolin Hfa Inh) 2 puff Q4H PRN INH 10/30/16 16:59 (Ambien) 10 mg HS PRN PO 11/02/16 11:30 11/04/16 22:02 (Pill Splitter) 1 ea UNSCH PRN OTHER 11/03/16 10:15 (Lithotabs) 600 mg Q12HR PO 11/05/16 21:00 11/10/16 09:37 (Mag-Ox) 400 mg Q12HR PO 11/06/16 09:00 11/10/16 09:37 (Depakene) 500 mg HS PO 11/06/16 21:00 11/09/16 20:56 (Depakene) 250 mg DAILY PO 11/07/16 09:00 11/10/16 09:38 (Ativan) 1 mg BID PO 11/09/16 21:00 11/10/16 09:38 A/P Problem List: (1) Bipolar disorder, current episode mixed ICD Code: F31.60 Status: Acute (2) Neuroleptic malignant syndrome ICD Code: G21.0 Status: Acute (3) DM (diabetes mellitus) ICD Code: E11.9 Status: Chronic (4) HLD (hyperlipidemia) ICD Code: E78.5 Status: Acute Assessment and Plan Patient is a 46-year-old female with primary medical history of anxiety, depression, bipolar disorder, schizophrenia, DM 2 who came in to the hospital via EMS secondary to increased confusion, not acting right, questionable suicidal ideation. As per records, patient was nonverbal and unable to provide history during the time of admission. She was admitted for acute encephalopathy , delirium, urinary tract infection. During the course of her hospitalization patient had severe agitation when she has needed vest and 4-point Restraints. She was seen by neurologist for possible neuroleptic malignant syndrome, she was given IV Dantrolene, with significant improvement in rigidity and stiffness. CT of the head was done with no acute intracranial disease. EEG was done negative for seizures. Patient was also treated with sepsis, urinary tract infection given multiple antibiotics and now switched to Bactrim by mouth. She is now admitted to medical psych unit for further evaluation. Consulted for medical management. Schizophrenia, psychosis, bipolar, Insomnia, manic - managed by psychiatry team - Unable to give antipsychotics for 2 weeks status post NMS - lithium dose increased to 600mg BID. Monitor closely for symptoms of lithium toxicity. [place] level I.2 --> 1.1 11/09/16. Cough - CXR no e/o infiltrate - asymptomatic today - appears resolved Status post fall, left elbow abrasion - No complaints of left elbow pain - Ice on and off - Patient declines x-ray right now. If increasing pain, discussed with nurse to notify provider, x-ray will be ordered. Metabolic encephalopathy -Most likely multifocal factorial due to Neuroleptic malignant syndrome and UTI. -CT scan of the head was negative. -EEG 10/27: Showing possible left temporal lobe epileptiform activity. The repeat EEG was normal. -Resolved. History of recent Neuroleptic malignant syndrome -Neurologist and psychiatrist were consulted. -Patient was given 100 mg IV dantrolene with significant improvement in rigidity/stiffness in the inpatient setting. -No medications at this time other than when necessary Ativan. -She is asymptomatic at the moment. UTI due to Escherichia coli - Initially treated with Rocephin and that was changed to cefepime. - Completed course of Bactrim DM 2 - Blood sugars well controlled - Metformin 1000 mg twice a day - Insulin sliding scale discontinued. Monitor BG once a day only. - hemoglobin A1c 6.1 - Monitor for hypoglycemia Hypothyroidism - On levothyroxine 225 g daily - Elevated TSH with normal T4, low T3. Adequate T4 concentrations, May benefit with addition of T3 replacement. - Recommend to see bilingual account manager as an outpatient for additional T3 replacement. [place] treatment for psychiatric disease may contribute to hypothyroidism. [place] level 0.5. HLD - ASCVD 10 year risk 3.2%, recommended for moderate intensity statin - Discussed with patient recommendation for statin use. Discuss risks and benefits with patient. In agreement with plan. - Lipitor 20 mg daily Hypokalemia - resolved - continue with potassium replacement - Magnesium level 2.1 - Continue to monitor. Repeat lab pending. Mild transaminitis secondary to rhabdomyolysis - AST 48 --> 31, ALT 61 -->47 - continue to monitor Rhabdomyolysis - possible dehydration, ?NMS, restraint use - improving - repeat CPK improved 1013 -> 676 -> 415 -> 347 Diarrhea - possibly secondary from magnesium oxide use. - Resolved C/O Itching - ?dry skin - Eucerin moisturizing lotion as needed DVT prop ambulatory Discussed with patient, nursing staff Written by Lacy Hamilton PA-C acting as scribe for Dr. Millard on 11/10/16 at 9 :34. All or portions of this note were transcribed by elbertibPenny BEEBE. I, Dr. Earnestine Millard personally performed the history, physical exam, and medical decision making; and confirmed the accuracy of the information in the transcribed note. Authenticated by Dr. Earnestine Millard on 11/10/16 at 9:34. Lacy Hamilton Nov 10, 2016 10:25 Earnestine Millard MD Nov 10, 2016 16:25
--- NOTE | 2016-11-10 10:41 | HHI.PYPN ---
Subjective Remarks Patient was seen today for psychiatric evaluation along with nurse in charge Radha, patient remains in bed today, she seems to be fatigued and sleepy, however she is cooperative, calm and pleasant. Patient says that she feels much better," a little bit tired", she reports good mood, desire to go back home to the care of her kid, she reports better sleep at night, good appetite, good level of energy, she denies suicidal and homicidal ideation, she denies visual and auditory hallucinations. Patient seems to be more organized, logical , coherent and relevant in her conversation. No delusions or paranoia are present. However, patient seems to be confused, she is oriented in time, but just partially oriented in place, she says that she isn't a hospital in [place]. However, she is easily redirectable. Patient has been fully compliant with medications, no disruptive, aggressive behavior, hostility, agitation reported in the last 24 hours. Review of Systems Other No somatic complaints Objective Alert: Yes [place]: Person, Place (just partially), Date, Situation Mood: Calm Affect: Restricted Memory Intact: Immediate, Recent, Remote Hallucinations: Visual (patient has reported seeing snakes and dogs in her room ), Other (denies AVH) Delusions: Yes (paranoid type) Delusion Type: Other (none elicited) Suicidal: Ideation (denies SI) Homicidal: Ideation (denies HI) Insight/Judgment Fair Labs Test 11/09/16 13:47 Valproic Acid (Depakene) Level 44 MCG/ML Vitals/IOs Vital Signs Date Time Temp Pulse Resp B/P Pulse Ox O2 Delivery O2 Flow Rate FiO2 11/10/16 05:55 98.4 88 18 100/70 96 Intake and Output 11/09/16 11/09/16 11/10/16 08:00 16:00 00:00 Intake Total 600 ml 840 ml 960 ml Balance 600 ml 840 ml 960 ml Assessment & Plan Problem List: (1) Bipolar affective disorder, current episode manic Assessment & Plan: Patient has showed a very significant improvement in mood, thought processes, cognition and behavior. However, today she seems to be lethargic and confused. Valproic acid level is 44. Will increase Depakote to 500 mg twice a day. Will encourage the patient to get out of bed and integrate in group activities. ICD Code: F31.9 Assessment & Plan Estimated LOS: days Justification for Cont. Inpt. Patient needs to continue psychiatric hospitalization for stabilization of manic and psychotic symptoms Problem Qualifiers (1) Bipolar affective disorder, current episode manic: Qualified Code: F31.2 - Bipolar affective disorder, currently manic, severe, with psychotic features Dwayne You MD Nov 10, 2016 10:41
[2016-11-10 12:44] LABS: ALT (GPT) 40 U/L (10-53); ANION GAP 10 MEQ/L (5-15); AST (GOT) 28 U/L (15-37); BICARBONATE 25.2 MEQ/L (21.0-32.0); BLOOD UREA NITROGEN 17 MG/DL (7-18); CHLORIDE 104 MEQ/L (98-107); GLOMERULAR FILTRATION RATE 61 ML/MIN (>89); MAGNESIUM 2.3 MG/DL (1.5-2.5); POTASSIUM 4.1 MEQ/L (3.5-5.1); SODIUM (NA) 139 MEQ/L (136-145)
[2016-11-10 12:49] LABS: AUTOMATED NEUTROPHIL # 7.9 TH/MM3 (1.8-7.7); BASOPHIL % 0.2 % (0.0-2.0); EOSINOPHIL # 0.3 TH/MM3 (0-0.4); EOSINOPHIL % 2.9 % (0.0-4.0); HEMATOCRIT 41.4 % (35.0-46.0); HEMO FLAGS DIFF FINAL; LYMPH % 15.7 % (9.0-44.0); LYMPHOCYTE # 1.7 TH/MM3 (1.0-4.8); MEAN CELL VOLUME 85.4 FL (80.0-100.0); MEAN CORPUSCULAR HGB CONC 32.7 % (32.0-36.0); MONO % 7.2 % (0.0-8.0); PLATELET COUNT 313 TH/MM3 (150-450); RED BLOOD COUNT 4.85 MIL/MM3 (4.00-5.30); RED CELL DISTRIBUTION WIDTH 14.3 % (11.6-17.2); WHITE BLOOD COUNT 10.7 TH/MM3 (4.0-11.0)
[2016-11-10 12:53] LABS: ALKALINE PHOSPHATASE 46 U/L (45-117); FREE T3 2.15 PG/ML (2.18-3.98); FREE T4 1.63 NG/DL (0.76-1.46); TOTAL BILIRUBIN ADULT 0.6 MG/DL (0.2-1.0)
[2016-11-10] MEDS ORDERED: EUCERIN CREAM 120 GM JAR TOPICAL PRN (13:30)
[2016-11-10 19:23] VITALS: BP 122/59; PULSE 90; RESP 17; TEMP 98.5; O2SAT 96
[2016-11-10] MEDS: REMOVE OLD NICOTINE PATCH T-DERMAL SCH (20:07)
[2016-11-11] MEDS: LEVOTHYROXINE SODIUM 25 MCG TAB PO SCH (06:10)
[2016-11-11] MEDS: LEVOTHYROXINE SODIUM 200 MCG TAB PO SCH (06:10)
[2016-11-11 06:11] VITALS: BP 108/68; PULSE 75; RESP 18; TEMP 97.1; O2SAT 98
[2016-11-11] MEDS: metFORMIN HCL 500 MG TAB PO SCH (08:58)
[2016-11-11] MEDS: MAGNESIUM OXIDE 400 MG TAB PO SCH (08:58)
[2016-11-11] MEDS: NICOTINE 21 MG/24 HR PATCH T-DERMAL SCH (08:59)
[2016-11-11] MEDS: VALPROIC ACID 250 MG CAP PO SCH (08:59)
[2016-11-11] MEDS: LORazepam 1 MG TAB PO SCH (08:59)
[2016-11-11] MEDS: LITHIUM CARBONATE 300 MG TAB PO SCH (08:59)
[2016-11-11] MEDS ORDERED: VALP250 PO (10:38)
[2016-11-11] MEDS ORDERED: METF500 PO (10:38)
[2016-11-11] MEDS ORDERED: AMBI10TA PO (10:38)
[2016-11-11] MEDS ORDERED: LITH300T3 PO (10:38)
[2016-11-11] MEDS ORDERED: LEVO25TA4 PO (10:38)
[2016-11-11] MEDS ORDERED: LORA-474 PO (10:38)
[2016-11-11] MEDS ORDERED: LEVO.2 PO (10:38)
--- NOTE | 2016-11-11 11:00 | HHI.DS ---
Psychiatry Discharge Summary Inpatient Psychiatric care?: Yes Advance Directive: No Reason Not Provided: DOES NOT HAVE Mental Health AdvanceDirective: No Health Care Proxy: No Admission Admission Date Oct 30, 2016 at 12:00 Admission Diagnosis: (1) Neuroleptic malignant syndrome ICD Code: G21.0 Brief History The patient is a 46-year-old woman, domiciled with her 11 years old autistic son in [place], unemployed, on SSI, , with psychiatric history of schizophrenia, bipolar disorder anxiety, depression, numerous psychiatric hospitalizations, last hospitalization here in [place] in 2014, documentation was reviewed, previous suicidal attempts, she has active outpatient care with Dr. Mackenzie, she is on Latuda 80 mg twice a day, lithium 450 minute 1 twice a day, Klonopin 2 mg 4 times per day, Cymbalta 90 mg daily, hydroxyzine 50 medical as twice a day, she has medical history of DM who was brought to the ER by EMS after son called 911 due to altered mental status. Per report, pt noted by son to be confused, not acting right, questionable suicidal ideation, however pt non-verbal and providing no history. On arrival, BP 142/77, HR 101, O2 sat 95% on RA, Afebrile. WBC 13.5. GFR 61. Lactic Acid 1.2. LFTs normal. Ammonia 26. Urine Drug Screen negative. Alcohol negative. Tylenol/Salicylate negative. UA positive for UTI. CXR with cardiomegaly and probable basilar atelectasis. CT Head with no acute findings. S/p Rocephin IV in ER, patient had also urinary retention, she was drained over 1000 cc of urine from her bladder. On psychiatric evaluation patient is agitated, very disorganized, no making any sense, unable to provide any meaningful information for the psychiatric assessment at this moment. She is a screaming, requesting medical care, and saying that she feels better, that she feels pain, but unable to give a concrete symptomatology. Patient is disoriented, she doesn't know what he is, she doesn't know the date. As she is been trying to be evaluated, patient is agitated, trying to get out of bed, at times screaming, calling her mother. She was asked about suicidal ideation, or a previous suicidal attempt, but the patient denies. I got collateral information from her mother Bernadine Palma, , was playing is that her daughter has been disorganized , acting very bizarre, talking to herself, wandering around, yesterday she became very concerned with her daughter in several occasions was trying to light a cigarette without a cigarette in her mouth and could not answer any of her questions clearly. Her mother also says that the only thing had call her attention in the last week is that the patient has been complaining of back pain and most probably has been abusing baclofen, also the patient has been kind oversedated and fatigue. But other than that patient has been at baseline until yesterday, without any notable symptomatology of depression, savanah or psychosis, she has been fully compliant with her medications, she has been going to her psychiatrist along with her son in [place]. Tobacco Use In Past 30 Days: 5 or More Cigarettes/Day Alcohol Use: Never Hospital Course Patient was admitted in the med psych unit coming from the ICU after being treated for neuroleptic malignant syndrome. Patient came to the floor asymptomatic, but out of the previous medications she was taking consisting of Latuda, Thorazine, Cymbalta, lithium. Patient immediately had initial psychiatry assessment and psychosocial assessment, she was also consulted to Hospital to follow-up underlying medical illnesses. As it was expected, secondary after hospitalization patient developed ck savanah and psychosis. She wasn't started in low doses of lithium and Ativan 1 mg twice a day to help hyperactivity and agitation. Medication were titrated up as needed and as the patient couldn't tolerate. After reaching lithium therapeutic levels patient continued to be manic. Since the recommendation is no real challenging with antipsychotics for at least 2 weeks after neuroleptic malignant syndrome, she was started in Depakote. Depakote was titrated as needed and as tolerated. Days later patient was started to show a good response to this psychotropic regimen. During the hospitalization patient developed ck savanah, with agitation, insomnia, pressured speech, disruptive behavior, paranoia, tangentiality and perceptual disturbances, for this reason patient was placed in one-to-one for safety. But as the patient responded to medication sitter was discontinued. At the moment of the discharge patient is calm, cooperative, logical, coherent, relevant with good mood, future oriented, motivated to continue medical and psychiatric follow-up and medications. No paranoia, no delusions, no savanah, no depressive symptoms are reported or observed. Outpatient psychiatrist was contacted in 2 occasions during hospitalization to communicate episode of NMS and discontinuation of antipsychotics. Results Blood Pressure 108 / 68 Vital Signs Date Time Temp Pulse Resp B/P Pulse Ox O2 Delivery O2 Flow Rate FiO2 11/11/16 06:11 97.1 75 18 108/68 98 Laboratory Tests Test 11/09/16 11/10/16 11/10/16 11/10/16 13:47 11:42 11:45 12:21 Valproic Acid (Depakene) Level 44 MCG/ML (50-100) Estimat Glomerular Filtration 61 ML/MIN (>89) Rate Troponin I LESS THAN 0.02 NG/ML (0.02-0.05) Free Thyroxine 1.63 NG/DL (0.76-1.46) Free Triiodothyronine (T3) 2.15 PG/ML pg/dL (2.18-3.98) Thyroid Stimulating Hormone 6.490 uIU/ML 3rd Gen (0.358-3.740) Total Creatine Kinase 347 U/L (26-192) Creatine Kinase MB 26.0 NG/ML (0.5-3.6) Creatine Kinase MB % 7.5 % (0.0-4.0) Neutrophils (%) (Auto) 74.0 % (16.0-70.0) Neutrophils # (Auto) 7.9 TH/MM3 (1.8-7.7) Laboratory Results Test 11/09/16 11/09/16 05:36 13:47 [place] Level 1.1 MEQ/L (0.5-1.5) Valproic Acid (Depakene) Level 44 MCG/ML (50-100) Summary of Procedures None Imaging Last Impressions Chest X-Ray 11/05/16 0000 Signed Impressions: Service Date/Time: October 12:20 - CONCLUSION: No infiltrates seen. Billy Carrillo MD Pending results at discharge: No Medications # of Antipsychotic meds at D/C: 0 Approp Antipsych med options 1 - Minimum of three failed multiple trials of monotherapy. 2 - Documented plan to taper to monotherapy due to previous use of multiple meds OR cross-taper in progress at D/C. 3 - Documentation of augmentation of Clozapine. 4 - Justification other than those listed in allowable values 1-3, document here : Discharge Discharge Date: Nov 11, 2016 Discharge Diagnosis: (1) Bipolar affective disorder, current episode manic ICD Code: F31.9 Mental Status Exam at Disch Overweight woman, in [facility], good hygiene, calm, cooperative and pleasant. Her speech is spontaneous and fluent, mood is euthymic, affect congruent with mood. Thought process logical, coherent and relevant, thought content is devoid of visual and auditory hallucinations, paranoia, delusions, suicidal or homicidal ideation. Insight, impulse control, judgment is good. Cognition is intact. Pt Condition on Discharge: Stable Discharge Disposition: Discharge Home Discharge Instructions Diet Instructions: Heart Healthy Diet Activities you can perform: Regular-No Restrictions Scheduled Appointment: [facility] App[facility] Date: Nov 23, 2016 Appointment Time: 2:00pm Discharge Time > 30 minutes Discharge/Advance Care Plan Health Problems: (1) Bipolar affective disorder, current episode manic Goals to promote your health * To prevent worsening of your condition and complications * To maintain your health at the optimal level Directions to meet your goals Take your medications as prescribed Follow your dietary instruction Follow activity as directed Keep your appointments as scheduled Take your immunizations and boosters as scheduled If your symptoms worsen call your PCP, if no PCP go to Urgent Care Center or Emergency Room For 22/02 questions related to your inpatient stay or results of tests pending at discharge, please contact Dr. Dwayne You at Smoking is Dangerous to Your Health. Avoid second hand smoking Problem Qualifiers (1) Bipolar affective disorder, current episode manic: Qualified Code: F31.2 - Bipolar affective disorder, currently manic, severe, with psychotic features Dwayne You MD Nov 11, 2016 11:00
--- NOTE | 2016-11-11 11:07 | EKG ---
Date Performed: 11/10/2016 Time Performed: 15:35:39 PTAGE: 46 years EKG: Sinus rhythm LOW QRS VOLTAGE IN PRECORDIAL LEADS BORDERLINE ECG NO PREVIOUS TRACING DOCTOR: Hiram Trmamell Interpretating Date/Time 11/11/2016 11:06:19
[2016-11-23] MEDS ORDERED: DIVA250ER PO ×2 (14:03→14:13)
[2016-11-23] MEDS ORDERED: LITH300T PO ×2 (14:05→14:13)
[2016-11-23] MEDS ORDERED: CLON0.3T PO ×2 (14:10→14:13)
[2016-11-23] MEDS ORDERED: AMBI10TA PO (14:13)
[2016-11-23] MEDS ORDERED: LORA-474 PO (14:13)
[2017-01-15] MEDS ORDERED: LURA1TAB2 PO ×2 (13:08→13:14)
[2017-01-15] MEDS ORDERED: LITH300T PO (13:14)
[2017-01-15] MEDS ORDERED: DIVA250ER PO (13:14)
== END 2016-11-11 11:30 | disposition home or self-care (01) | DRG 885 ==
LOC: H4EA 12:00
PROVIDERS: ADMIT Psychiatry & Neurology Psychiatry; ATTEND Psychiatry & Neurology Psychiatry
DX: F31.60 Bipolar disorder, current episode mixed, unspecified (principal); G93.41 Metabolic encephalopathy; G21.0 Malignant neuroleptic syndrome; N39.0 Urinary tract infection, site not specified; E83.42 Hypomagnesemia; E11.9 Type 2 diabetes mellitus without complications; B96.20 Unspecified Escherichia coli [E. coli] as the cause of diseases classified elsewhere; E03.9 Hypothyroidism, unspecified; E87.6 Hypokalemia; F20.9 Schizophrenia, unspecified; N28.9 Disorder of kidney and ureter, unspecified; F41.9 Anxiety disorder, unspecified
CPT/HCPCS: 71020; 80048; 80053; 80061; 80164; 80178; 82550; 82552; 82948; 83036; 83735; 84439; 84443; 84481; 84484; 85025; 93005; J1200; J2060; J3480

== ENCOUNTER 2016-12-26 16:31 | Emergency (ER) | payer MEDICARE, MEDICAID ==
[~2016-12-26] VITALS: Ht 170.2 cm; Wt 95.0 kg
[~2016-12-26 16:31] MED LIST changes: +AMBI10TA PO; -BACT800T5 PO; +CLON0.3T PO; +DIVA250ER PO; +LEVO.2 PO; -LEVO200T4 PO; +LITH300T PO; +LORA-474 PO; -METF1000 PO; +METF500 PO
[2016-12-26 16:36] VITALS: BP 151/101; PULSE 91; RESP 17; TEMP 98.6; O2SAT 99
[2016-12-26] MEDS ORDERED: ROPI4TAB PO (16:46)
[2016-12-26] MEDS ORDERED: BACL20TA PO (16:46)
[2016-12-26] MEDS ORDERED: LEVO25TA4 PO (16:46)
[2016-12-26] MEDS ORDERED: CLON0.3T PO (16:46)
[2016-12-26] MEDS ORDERED: AMOX875T PO (17:13)
--- NOTE | 2016-12-26 17:16 | PD ---
HPI Chief Complaint: ENT Complaint Time Seen by Provider: 16:45 Travel History International Travel<30 days: No Contact w/Intl Traveler<30days: No Traveled to known affect area: No History of Present Illness HPI 46 year-old female presents to the emergency room for evaluation of right ear pain, fullness, and decreased hearing for the past 2 weeks that worsened yesterday. She has not been taking anything for her symptoms. Worse with pressure to the outside of the ear. Associated dizziness, cough, and sore throat. She denies drainage, fever, chills, nausea, vomiting. PFSH Past Medical History Asthma: Yes Bipolar Disorder: Yes Anxiety: Yes Depression: Yes Cancer: No Cardiovascular Problems: No Diabetes: Yes Patient Takes Glucophage: Yes Diminished Hearing: No Endocrine: Yes Gastrointestinal Disorders: Yes GERD: Yes Headaches: Yes Herniated Disk: Yes Implanted Vascular Access Dvce: No Insomnia: Yes Schizophrenia: Yes Seizures: No Thyroid Disease: Yes Triglycerides - High: Yes Tetanus Vaccination: > 5 Years Influenza Vaccination: Yes ?: Not LMP: MENOPAUSAL : 2 Para: 2 Past Surgical History Body Medical Devices: Unable to obtain, patient with altered mental status Social History Alcohol Use: No Tobacco Use: Yes (1 PPD) Substance Use: No Allergies-Medications (Allergen,Severity, Reaction): Coded Allergies: No Known Allergies (Verified , 12/26/16) Reported Meds & Prescriptions Reported Meds & Active Scripts Active Amoxicillin 875 Mg Tab 875 Mg PO BID 7 Days [place] Carbonate ER ([place] Carbonate) 300 Mg Tab 300 Mg PO 2 CAPSULES BID Depakote ER (Divalproex Sodium) 250 Mg [place] 250 Mg PO BID Glucophage (Metformin HCl) 500 Mg Tab 1,000 Mg PO BIDPC Reported Baclofen 20 Mg Tab 20 Mg PO QID Levothyroxine (Levothyroxine Sodium) 25 Mcg Tab 25 Mcg PO DAILY Clonidine (Clonidine HCl) 0.3 Mg Tab 0.3 Mg PO DIRECTED Ropinirole 4 Mg Tab 4 Mg PO HS Proair Hfa 8.5 GM Inh (Albuterol Sulfate) 90 Mcg/Act Aer 2 Puff INH Q4HR PRN 108 mcg/actuation Review of Systems Except as stated in HPI: all other systems reviewed are Neg Physical Exam Narrative GENERAL: Well nourished female in no acute distress. Afebrile. Ambulatory. SKIN: Warm and dry. HEAD: Normocephalic. EYES: No scleral icterus. No injection or drainage. EARS: Left ear canal and tympanic membrane within normal limits. Right ear canal occluded with cerumen. Right tympanic membrane extremely erythematous with obvious effusion. No perforation. NECK: Supple, trachea midline. No JVD or lymphadenopathy. CARDIOVASCULAR: Regular rate and rhythm without murmurs, gallops, or rubs. RESPIRATORY: Breath sounds equal bilaterally. No accessory muscle use. Scattered wheezes. Data Data Last Documented VS Vital Signs Date Time Temp Pulse Resp B/P Pulse Ox O2 Delivery O2 Flow Rate FiO2 12/26/16 16:45 18 12/26/16 16:36 98.6 91 151/101 99 Orders Ear Irrigation (12/26/16 16:44) [facility] Medical Decision Making Medical Screen Exam Complete: Yes Emergency Medical Condition: Yes Medical Record Reviewed: Yes Differential Diagnosis otitis media, otitis externa, eustachian tube dysfunction Narrative Course 46 year-old female presents to the emergency room for evaluation of right ear pain, pressure, and decreased hearing for 2 weeks that worsened yesterday. She is afebrile and well-appealing . Resting comfortably in bed. After cerumen impaction was removed, physical exam reveals moderately erythematous tympanic membrane with effusion but without perforation. This is otitis media. Patient discharged with amoxicillin and told to follow-up with PCP or return for worsening symptoms. She understands and agrees to plan. Diagnosis Primary Impression: Otitis media Qualified Code: H66.001 - Acute suppurative otitis media of right ear without spontaneous rupture of tympanic membrane, recurrence not specified Referrals: Primary Care Physician Patient Instructions: General Instructions, Otitis Media (ED) Additional Instructions: Rest and drink plenty of fluids. Amoxicillin as directed, until gone. Follow up with a primary care physician. Return for worsening symptoms. Med/Other Pt SpecificInfo: Prescription(s) given Scripts Amoxicillin 875 Mg Omw100 Mg PO BID 7 Days Ref 0 Prov:Jony Norman MD 12/26/16 Disposition: 01 DISCHARGE HOME Condition: Stable Divine Diez December 26, 2016 17:16
[2017-01-15] MEDS ORDERED: LURA1TAB2 PO ×2 (13:08→13:14)
[2017-01-15] MEDS ORDERED: LITH300T PO (13:14)
[2017-01-15] MEDS ORDERED: DIVA250ER PO (13:14)
== END 2016-12-26 17:34 | disposition home or self-care (01) ==
LOC: PHEFT 16:31
DX: H66.001 Acute suppurative otitis media without spontaneous rupture of ear drum, right ear (principal)
CPT/HCPCS: 99283

== ENCOUNTER 2017-03-26 16:48 | Emergency (ER) | payer MEDICARE, MEDICAID ==
[~2017-03-26] VITALS: Ht 170.2 cm; Wt 101.3 kg
[~2017-03-26 16:48] MED LIST changes: -AMBI10TA PO; +AMOX875T PO; +BACL20TA PO; -LEVO.2 PO; +LURA1TAB2 PO; +ROPI4TAB PO
[2017-03-26 16:56] VITALS: BP 160/93; PULSE 88; RESP 18; TEMP 99.1; O2SAT 99
--- NOTE | 2017-03-26 19:13 | PD ---
HPI Chief Complaint: Pain: Acute or Chronic Time Seen by Provider: 18:43 Travel History International Travel<30 days: No Contact w/Intl Traveler<30days: No Traveled to known affect area: No History of Present Illness HPI 47-year-old female with history of bipolar disorder, hypertension, diabetes, hypothyroidism presents to the emergency room for evaluation of multiple nonspecific, somatic complaints. Patient reports acute exacerbation of chronic back pain, bilateral lower leg pain and heaviness, bilateral ear pain, and dental pain. All symptoms started about one week ago. She has had no testing, shortness of breath, fever, chills, nausea, vomiting, or abdominal pain. Leg pain is worst at night. It is in bilateral lower extremities without radiation. Dental pain is worst in the forehead where she has multiple loose teeth. She does not have a dentist. Denies drainage from the teeth. Ear pain is worse when she lies down. She has associated right ear fullness. Denies drainage from the ears. She has been taking Tylenol, Motrin, and Aleve without any relief in symptoms. States her last A1c a few months ago was 5.0. PFSH Past Medical History Asthma: Yes Bipolar Disorder: Yes Anxiety: Yes Depression: Yes Cancer: No Cardiovascular Problems: No Diabetes: Yes Patient Takes Glucophage: Yes Diminished Hearing: No Endocrine: Yes Gastrointestinal Disorders: Yes GERD: Yes Headaches: Yes Herniated Disk: Yes Implanted Vascular Access Dvce: No Insomnia: Yes Medical other: Yes (restless legs) Schizophrenia: Yes Seizures: No Thyroid Disease: Yes Triglycerides - High: Yes Tetanus Vaccination: Unknown Influenza Vaccination: No ?: Not LMP: 03/17/17 : 2 Para: 2 Past Surgical History Body Medical Devices: Unable to obtain, patient with altered mental status Social History Alcohol Use: No Tobacco Use: Yes (1 PPD) Substance Use: No Allergies-Medications (Allergen,Severity, Reaction): Coded Allergies: No Known Allergies (Verified , 03/26/17) Reported Meds & Prescriptions Reported Meds & Active Scripts Active Penicillin V Potassium 500 Mg Tab 500 Mg PO Q8H 7 Days Ativan (Lorazepam) 1 Mg Tab 1 Mg PO BID PRN Clonidine (Clonidine HCl) 0.3 Mg Tab 0.3 Mg PO HS Glucophage (Metformin HCl) 500 Mg Tab 1,000 Mg PO BIDPC Reported Levothyroxine (Levothyroxine Sodium) 25 Mcg Tab 25 Mcg PO DAILY Ropinirole 4 Mg Tab 4 Mg PO HS Proair Hfa 8.5 GM Inh (Albuterol Sulfate) 90 Mcg/Act Aer 2 Puff INH Q4HR PRN 108 mcg/actuation Review of Systems Except as stated in HPI: all other systems reviewed are Neg Physical Exam Narrative GENERAL: Well-developed, well-nourished female in no acute distress. Afebrile. Ambulatory. SKIN: Warm and dry. No erythema or ecchymosis. HEAD: Atraumatic. Normocephalic. No nava sign or raccoon eyes. EYES: PERRL, EOMI, no discharge or injection. No scleral icterus. ENT: Mucosa pink and moist. No erythema or exudates. No uvular edema. No uvular , palatal, or tonsillar deviation. Airway patent. EARS: Bilateral pinnae and external canals appear within normal limits. Bilateral tympanic membranes have moderate erythema and dullness but without perforation. No hemotympanum. NECK: Trachea midline. No JVD. No midline tenderness. Full range of motion. CARDIOVASCULAR: Regular rate and rhythm. No murmur appreciated. RESPIRATORY: No accessory muscle use. Clear to auscultation. Breath sounds equal bilaterally. No crackles, rales, wheezes, or rhonchi. MSK: Bilateral 2+ dorsalis pedis pulses. Full range motion of bilateral lower extremity. No edema noted. BACK: No CVA tenderness. No rash. No point tenderness on palpation of the spine. Negative straight leg raise. PSYCHIATRIC: Appropriate mood and affect; insight and judgment normal. Data Data Last Documented VS Vital Signs Date Time Temp Pulse Resp B/P (MAP) Pulse Ox O2 Delivery O2 Flow Rate FiO2 03/26/17 21:52 03/26/17 21:45 98.3 70 18 100 Room Air Orders Orders Sodium Chlor 0.9% 1000 Ml Inj (Ns 1000 M (03/26/17 19:15) Complete Blood Count With Diff (03/26/17 19:08) Basic Metabolic Panel (Bmp) (03/26/17 19:08) Ketorolac Inj (Toradol Inj) (03/26/17 19:15) Ketorolac Inj (Toradol Inj) (03/26/17 20:30) Clonidine (Catapres) (03/26/17 21:00) Labs Laboratory Tests Test 03/26/17 19:40 White Blood Count 11.2 TH/MM3 Red Blood Count 5.00 MIL/MM3 Hemoglobin 14.5 GM/DL Hematocrit 42.5 % Mean Corpuscular Volume 85.1 FL Mean Corpuscular Hemoglobin 28.9 PG Mean Corpuscular Hemoglobin Concent 34.0 % Red Cell Distribution Width 13.9 % Platelet Count 320 TH/MM3 Mean Platelet Volume 8.2 FL Neutrophils (%) (Auto) 60.9 % Lymphocytes (%) (Auto) 28.9 % Monocytes (%) (Auto) 6.7 % Eosinophils (%) (Auto) 1.6 % Basophils (%) (Auto) 1.9 % Neutrophils # (Auto) 6.8 TH/MM3 Lymphocytes # (Auto) 3.2 TH/MM3 Monocytes # (Auto) 0.8 TH/MM3 Eosinophils # (Auto) 0.2 TH/MM3 Basophils # (Auto) 0.2 TH/MM3 CBC Comment DIFF FINAL Differential Comment Blood Urea Nitrogen 18 MG/DL Creatinine 1.00 MG/DL Random Glucose 133 MG/DL Calcium Level 9.2 MG/DL Sodium Level 136 MEQ/L Potassium Level 4.2 MEQ/L Chloride Level 105 MEQ/L Carbon Dioxide Level 20.2 MEQ/L Anion Gap 11 MEQ/L Estimat Glomerular Filtration Rate 60 ML/MIN MDM Medical Decision Making Medical Screen Exam Complete: Yes Emergency Medical Condition: Yes Medical Record Reviewed: Yes Differential Diagnosis Anxiety, viral syndrome, otitis media, dentalgia, dental decay, gingivitis Narrative Course 47-year-old female presents to the emergency room for evaluation of multiple, nonspecific, somatic complaints that all started about one week ago. Complaints include bilateral ear pain, dental pain, and bilateral leg pain. She has not taken anything for her symptoms. Denies fever, chills, nausea, and vomiting. Patient is afebrile and well-appearing in the emergency room. Ears show bilateral effusions without significant erythema or perforation. Patient has severe periodontal disease and her gingiva around his numbers 23-26 is extremely erythematous and swollen. The teeth are all loose and about to fall out. They're all decaying. Basic labs were ordered to evaluate for electrolyte abnormality or dehydration. CBC and BMP are unremarkable. Patient has history of bipolar disorder and generalized anxiety disorder which may be contributing to her symptoms. She was reassured and discharged with prescription for penicillin to cover for dental infection and/or otitis media. Told to follow-up with her primary care physician or return for worsening symptoms. She understands and agrees to plan. Diagnosis Primary Impression: Myalgia Additional Impressions: Gingivitis Otitis media Qualified Codes: H66.3X3 - Other chronic suppurative otitis media, bilateral Additional Instructions: Rest and drink plenty of fluids. Penicillin as directed, until gone. Take ibuprofen with food as directed, as needed for pain. Follow-up with a primary care physician. Return to the emergency room for worsening symptoms. Med/Other Pt SpecificInfo: Prescription(s) given Scripts Penicillin V Potassium (Penicillin V Potassium) 500 Mg Tab 500 MG PO Q8H for Infection for 7 Days, TAB 0 Refills Prov: Dwight Arthur MD 03/26/17 Disposition: 01 DISCHARGE HOME Condition: Stable Divine Diez Mar 26, 2017 19:13
[2017-03-26] MEDS ORDERED: KETOROLAC TROMETHAMINE 60 MG/2 ML (IM) VIAL IM ONE (19:15)
[2017-03-26] MEDS ORDERED: SODIUM CHLOR 0.9% 1000 ML INJ 1,000 ML IV ONE (19:15)
[2017-03-26 19:40] VITALS: BP 189/91; PULSE 80; RESP 18; TEMP 98.8; O2SAT 98
[2017-03-26 19:49] LABS: AUTOMATED NEUTROPHIL # 6.8 TH/MM3 (1.8-7.7); BASOPHIL # 0.2 TH/MM3 (0-0.2); BASOPHIL % 1.9 % (0.0-2.0); EOSINOPHIL # 0.2 TH/MM3 (0-0.4); EOSINOPHIL % 1.6 % (0.0-4.0); HEMATOCRIT 42.5 % (35.0-46.0); LYMPH % 28.9 % (9.0-44.0); LYMPHOCYTE # 3.2 TH/MM3 (1.0-4.8); MEAN CELL VOLUME 85.1 FL (80.0-100.0); MEAN CORPUSCULAR HEMOGLOBIN 28.9 PG (27.0-34.0); MONO % 6.7 % (0.0-8.0); NEUT % 60.9 % (16.0-70.0); PLATELET COUNT 320 TH/MM3 (150-450); RED CELL DISTRIBUTION WIDTH 13.9 % (11.6-17.2); WHITE BLOOD COUNT 11.2 TH/MM3 (4.0-11.0)
[2017-03-26 19:52] LABS: HEMO FLAGS DIFF FINAL
[2017-03-26 20:10] LABS: POTASSIUM 4.2 MEQ/L (3.5-5.1)
[2017-03-26 20:13] LABS: BICARBONATE 20.2 MEQ/L (21.0-32.0)
[2017-03-26] MEDS ORDERED: PENI500T PO (20:25)
[2017-03-26] MEDS ORDERED: KETOROLAC TROMETHAMINE 30 MG/ML (IVP) VIAL IV PUSH ONE (20:30)
[2017-03-26 20:45] VITALS: BP 193/98; PULSE 72; RESP 18; O2SAT 100
[2017-03-26] MEDS ORDERED: cloNIDine HCL 0.1 MG TAB PO ONE (21:00)
[2017-03-26 21:45] VITALS: BP 179/85; PULSE 70; RESP 18; TEMP 98.3; O2SAT 100
[2017-03-31] MEDS ORDERED: CLON0.3T PO (11:27)
[2017-05-12] MEDS ORDERED: LORA-474 PO (09:49)
== END 2017-03-26 21:52 | disposition home or self-care (01) ==
LOC: PHED 16:48
DX: M79.1 Myalgia (principal); K05.10 Chronic gingivitis, plaque induced; H66.3X3 Other chronic suppurative otitis media, bilateral; F17.210 Nicotine dependence, cigarettes, uncomplicated; J45.909 Unspecified asthma, uncomplicated; E11.9 Type 2 diabetes mellitus without complications; K21.9 Gastro-esophageal reflux disease without esophagitis; Z79.84 Long term (current) use of oral hypoglycemic drugs
CPT/HCPCS: 80048; 85025; 96361; 96374; 99284; J1885; J7030

== ENCOUNTER 2017-05-22 10:32 | Emergency (ER) | payer MEDICARE, MEDICAID ==
[~2017-05-22] VITALS: Ht 170.2 cm; Wt 105.0 kg
[~2017-05-22 10:32] MED LIST changes: -AMOX875T PO; -BACL20TA PO; -DIVA250ER PO; -LITH300T PO; -LURA1TAB2 PO; +PENI500T PO
[2017-05-22 10:37] VITALS: BP 181/77; PULSE 113; RESP 16; TEMP 98.3; O2SAT 97
[2017-05-22 10:57] LABS: BLOOD, URINE LARGE (NEG); GLUCOSE,URINE 1000 OR GREATER mg/dL (NEG); KETONE, URINE NEG (NEG); NITRITE,URINE NEG (NEG)
[2017-05-22] MEDS ORDERED: ATOR20TA15 PO (10:59)
[2017-05-22 11:02] LABS: METHOD OF COLLECTION CLEAN CATCH
[2017-05-22 11:03] LABS: RBC, URINE INNUM /hpf (0-3); SQUAMOUS EPITHELIAL CELL URINE 0-5 /hpf (0-5); URINE COLOR YELLOW (YELLW/STRAW)
[2017-05-22 11:04] LABS: COMMENT (UR) CULTURE INDICATED; CULTURE IF INDICATED CULTURE INDICATED
--- NOTE | 2017-05-22 11:23 | PD ---
HPI Chief Complaint: [place]er Problem/Complaint Time Seen by Provider: 10:49 Travel History International Travel<30 days: No Contact w/Intl Traveler<30days: No Traveled to known affect area: No History of Present Illness HPI This 47-year-old female is complaining of burning with urination and vaginal rash. He was given a course of antibiotics by her dentist recently for an infected tooth. She does tend to get yeast infections after antibiotics. He also had some sores in her mouth. She has a history of type 2 diabetes and hypothyroidism. She is just finishing her period PFSH Past Medical History Asthma: Yes Bipolar Disorder: Yes Anxiety: Yes Depression: Yes Cancer: No Cardiovascular Problems: No Diabetes: Yes Patient Takes Glucophage: Yes Diminished Hearing: No Endocrine: Yes Gastrointestinal Disorders: Yes GERD: Yes Headaches: Yes Herniated Disk: Yes Implanted Vascular Access Dvce: No Insomnia: Yes Schizophrenia: Yes Seizures: No Thyroid Disease: Yes Triglycerides - High: Yes Influenza Vaccination: Yes ?: Not LMP: NOW : 2 Para: 2 Past Surgical History Body Medical Devices: Unable to obtain, patient with altered mental status Social History Alcohol Use: No Tobacco Use: Yes (1 PPD) Substance Use: No Allergies-Medications (Allergen,Severity, Reaction): Coded Allergies: No Known Allergies (Verified , 03/26/17) Reported Meds & Prescriptions Reported Meds & Active Scripts Active Ativan (Lorazepam) 1 Mg Tab 1 Mg PO BID PRN Glucophage (Metformin HCl) 500 Mg Tab 1,000 Mg PO BIDPC Reported Atorvastatin (Atorvastatin Calcium) 20 Mg Tab 20 Mg PO HS Levothyroxine (Levothyroxine Sodium) 25 Mcg Tab 250 Mcg PO DAILY Proair Hfa 8.5 GM Inh (Albuterol Sulfate) 90 Mcg/Act Aer 2 Puff INH Q4HR PRN 108 mcg/actuation Review of Systems General / Constitutional: No: Fever, Chills HENT: Positive: Sore Throat, No: Congestion, Gingival Bleeding Cardiovascular: No: Chest Pain or Discomfort, Palpitations Respiratory: No: Cough Gastrointestinal: No: Nausea, Vomiting Genitourinary: Positive: Dysuria, Discharge Skin: Positive Rash, Positive Itching Hematologic/Lymphatic: No: Easy Bruising Physical Exam Narrative GENERAL: Well-developed female SKIN: Focused skin assessment warm/dry. HEAD: Atraumatic. Normocephalic. EYES: Pupils equal and round. No scleral icterus. No injection or drainage. ENT: No nasal bleeding or discharge. Mucous membranes pink and moist. Posterior pharynx is erythematous. No exudate is seen NECK: Trachea midline. No JVD. CARDIOVASCULAR: Regular rate and rhythm. No murmur appreciated. RESPIRATORY: No accessory muscle use. Clear to auscultation. Breath sounds equal bilaterally. GASTROINTESTINAL: Abdomen soft, non-tender, nondistended. Hepatic and splenic margins not palpable. Pelvic: There is some diffuse erythema of the skin. The knee causes also erythematous. She is having some bleeding related to her. MUSCULOSKELETAL: No obvious deformities. No clubbing. No cyanosis. No edema. NEUROLOGICAL: Awake and alert. No obvious cranial nerve deficits. Motor grossly within normal limits. Normal speech. PSYCHIATRIC: Appropriate mood and affect; insight and judgment normal. Data Data Last Documented VS Vital Signs Date Time Temp Pulse Resp B/P (MAP) Pulse Ox O2 Delivery O2 Flow Rate FiO2 05/22/17 10:37 98.3 113 16 181/77 (111) 97 Orders Orders Urinalysis - C+S If Indicated (05/22/17 10:49) Urine Culture (05/22/17 10:50) Fluconazole (Diflucan) (05/22/17 11:30) Labs Laboratory Tests Test 05/22/17 10:50 Urine Collection Type CLEAN CATCH Urine Color YELLOW Urine Turbidity SLIGHT Urine pH 5.0 Urine Specific [place] 1.022 Urine Protein NEG mg/dL Urine Glucose (UA) 1000 OR GREATER mg/dL Urine Ketones NEG mg/dL Urine Occult Blood LARGE Urine Nitrite NEG Urine Bilirubin NEG Urine Leukocyte Esterase NEG Urine RBC INNUM /hpf Urine WBC 20-24 /hpf Urine Squamous Epithelial Cells 0-5 /hpf Microscopic Urinalysis Comment CULTURE INDICATED Urine Collection Time 10:50 [facility] Medical Decision Making Medical Screen Exam Complete: Yes Emergency Medical Condition: Yes Medical Record Reviewed: Yes Differential Diagnosis Differential includes yeast vaginitis, Narrative Course Patient has been given a dose of Diflucan. She is stable for discharge Diagnosis Primary Impression: Yeast vaginitis Disposition: 01 DISCHARGE HOME Condition: Stable Greg Roy MD May 22, 2017 11:23
[2017-05-22] MEDS ORDERED: FLUCONAZOLE 100 MG TAB PO ONE (11:30)
[2017-06-01] MEDS ORDERED: LURA1TAB2 PO ×2 (10:35→10:41)
[2017-06-01] MEDS ORDERED: CLON0.3T PO ×2 (10:35→10:41)
[2017-06-01] MEDS ORDERED: CYMB60CA PO ×2 (10:35→10:41)
[2017-06-01] MEDS ORDERED: TRAZ100T6 PO ×2 (10:38→10:41)
[2017-06-01] MEDS ORDERED: LORA-474 PO (10:41)
== END 2017-05-22 11:46 | disposition home or self-care (01) ==
LOC: PHED 10:32
DX: B37.3 Candidiasis of vulva and vagina (principal); R30.0 Dysuria; E11.9 Type 2 diabetes mellitus without complications; E03.9 Hypothyroidism, unspecified; E78.1 Pure hyperglyceridemia; F17.200 Nicotine dependence, unspecified, uncomplicated; Z79.84 Long term (current) use of oral hypoglycemic drugs; Z87.09 Personal history of other diseases of the respiratory system; Z86.59 Personal history of other mental and behavioral disorders; Z87.19 Personal history of other diseases of the digestive system; Z87.39 Personal history of other diseases of the musculoskeletal system and connective tissue
CPT/HCPCS: 81001; 87086; 99283